=== PATIENT | female | born 1965 | race Caucasian/White ===

== ENCOUNTER 2021-03-15 10:27 | Outpatient (RCR) | payer OTHER, SELFPAY | END 2021-04-19 23:59 | LOC: IMMUN 10:27 | PROVIDERS: PCP Family Medicine; Referring Provider Family Medicine; Visit Provider Family Medicine | DX: Z23 Encounter for immunization (principal) | CPT/HCPCS: 0001A; 91300 ==

== ENCOUNTER 2023-03-31 15:55 | Outpatient (CLI) | payer OTHER, SELFPAY | END 2023-04-03 13:59 | disposition home health service (06) | LOC: LAB 04-23 09:40 | PROVIDERS: PCP Family Medicine; Referring Provider Anesthesiology; Visit Provider Anesthesiology | DX: Z01.818 Encounter for other preprocedural examination (principal) | CPT/HCPCS: 36415; 80048; 84443; 85027 ==

== ENCOUNTER 2023-04-02 11:33 | Day surgery (SDC) | payer OTHER, SELFPAY ==
[2023-03-31 16:36] LABS: Hematocrit 38.8 % (37-47); Hemoglobin 12.8 g/dL (12.0-15.0); Mean Corpuscular Hgb 30.3 pg (27.0-32.0); Mean Corpuscular Volume 91.7 fL (81-99); Mean Platelet Vol. 8.8 fl (6.2-12.0); Platelet Count 268 K/mm3 (150-450); RBC Distribution Width CV 12.7 % (11.6-14.6); RBC Distribution Width SD 42.5 fl (35.1-43.9); Red Blood Count 4.23 M/mm3 (4.2-5.4); White Blood Count 5.4 K/mm3 (4.4-11.0)
[2023-03-31 17:29] LABS: Anion Gap 2 (5-15); BUN 15 mg/dL (7-18); BUN/Creat Ratio 17.6 RATIO (10-20); Calcium,Total 8.2 mg/dL (8.5-10.1); Chloride 106 mmol/L (98-107); Creatinine, Serum 0.85 mg/dL (0.55-1.02); EST Glomerular Filtration Rate 73 mL/min (>60); Est Glom Filt Rate - Afr Amer 89 mL/min (>60); Glucose 96 mg/dL (74-106); Potassium 4.2 mmol/L (3.5-5.1); Sodium Level 137 mmol/L (136-145)
[2023-04-02] VITALS (8 sets, daily range): BP systolic 119–147; BP diastolic 75–92; PULSE 58–67; RESP 14–18; TEMP 36.2–36.7; O2SAT 94–99; BMI 25.8
--- NOTE | 2023-04-02 11:49 | HP.PCM_ITS ---
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 Is patient in pain?: Yes Allergies No Known Allergies Allergy (Unverified 02/26/23 07:52) Medications biotin 10,000 mcg capsule mcg PO 02/28/22 [History Confirmed 02/26/23] calcium phosphate 250 mg-vitamin D3 2.5 mcg (100 unit) chewable tablet (Yogurt Plus Calcium Gummies) tab PO 02/28/22 [History Confirmed 02/26/23] cholecalciferol (vitamin D3) 50 mcg (2,000 unit) capsule 50 mcg PO DAILY 02/28/22 [History Confirmed 02/26/23] levothyroxine 112 mcg tablet ea PO 02/28/22 [History Confirmed 02/26/23] metoprolol succinate 50 mg tablet,extended release 24 hr ea PO 02/28/22 [History Confirmed 02/26/23] omeprazole 40 mg capsule,delayed release ea PO 02/28/22 [History Confirmed 02/26/23] PFSH Medical History? Back problem Calcium deficiency delivery delivered Frequent headaches GERD (gastroesophageal reflux disease) Goiter High blood pressure Kidney stone Marfan's syndrome Paralysis of right vocal cord Postoperative primary hypothyroidism Thyroid cancer Thyroid disease Vision problem Vitamin deficiency Surgical History? H/O eye surgery H/O thyroidectomy Family History? Other Hypertension Marfan's syndrome Myocardial infarction Seizures Social History? Smoking Status:? Former smoker alcohol intake:? current alcohol intake frequency: holidays/special occasions only substance use type:? does not use what type of physical activity do you participate in:? other HPI HPI HPI: 57-year-old female who is being referred by the [employer] for surgical consultation regarding a suspected left inguinal hernia.? The patient is being referred by Renae Martin and Dr. Mac Pino.? Written compromise surgical consult recommendations will be returned to them.? States that she had this injury at work couple weeks ago.? She has been on light duty.? She has been working for the [employer] for over 20 years.? 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 It is intermittently uncomfortable with certain lifting and and bending.? It is able to be reduced.? The only previous abdominal surgery she has had was a previous remote . ROS General General: No weight change, appetite, fatigue, colon cancer, breast cancer or weakness HEENT HEENT: Yes eye surgery; No difficulty swallowing, eye injury, swollen glands or hoarseness Endo Endocrine: Yes thyroid disease and thyroid cancer; No diabetes mellitus, Hair loss, heat intolerance or cold intolerance Skin Skin: No rash or changing moles Breast Breast: No left breast lump, right breast lump, nipple discharge, breast pain, abnormal mammogram, abnormal US or breast enlargement Musc Musculoskeletal: Yes back problems; No arthritis, rheumatoid arthritis, gout or joint pain Cardio Cardiovascular: Yes high blood pressure; No murmur, pacemaker, heart disease, atrial fibrillation, heart attack, heart stent, palpitations, shortness of breat with exertion or chest pain Psych Psychiatric: No depression, anxiety or hearing voices Resp Respiratory: No shortness of breath, No sleep apnea, No cough, No COPD, No asthma, No emphysema and No wheezing Gastro Gastrointestinal: Yes abdominal pain, No nausea or vomiting, No diarrhea, No constipation, No blood in stool, Yes acid reflux, No hemorrhoids, No ulcers, No gallbladder problem and No black,tarry stools Kody Hematologic: No blood thinners, No blood disorders, No bleeding, No anemia and No blood clots Neuro Neurologic: No system reviewed and no additional complaints, except as documented, No as per HPI, No abnormal gait, No abnormal hearing, No abnormal movements, No abnormal speech, No behavioral changes, No burning sensations, No confusion, No convulsions, No disequilibrium, No dizziness, No localized weakness, No frequent falls, No headache(s), No lack of coordination, No loss of vision, No memory loss, No numbness, No other visual disturbances, No radicular pain, No restless legs, No sensory deficit, No syncope, No tingling, No tremor(s), No weakness and No other Exam Const General: cooperative, healthy appearing and no acute distress Orientation: alert and awake [facility] Head: normal to inspection Eyes General: appearance normal, both eyes and all related structures Neck Neck: normal visual inspection Resp Effort & Inspection: normal respiratory effort Auscultation: clear to auscultation bilaterally Cardio Rate: regular rate Rhythm: regular rhythm GI Other: Soft, nontender, extraordinary well-healed Pfannenstiel incision Other: Right groin solid intact, obvious inguinal hernia on the left notable particularly when the patient is upright and standing.? Reducible when supine Skin General: no rashes or lesions noted Neuro General: patient alert, patient awake and patient oriented x3 Extrem General: normal to inspection and no calf tenderness Psych Appearance: grossly normal Assessment and Plan Assessment and Plan (1) Inguinal hernia of left side without obstruction or gangrene: ?Status:?Acute ?Plan: Very pleasant 57-year-old female with a symptomatic indirect left inguinal hernia.? It is still reducible.? She does live an active lifestyle and has vigorous work requirements.? I propose for her a laparoscopic left inguinal herniorrhaphy with mesh and I discussed technique, benefit, risk and alternatives.? I believe that this eventuate's in the most comfortable hernia repair and the quickest return to work possibility.? We did discuss potential risks of surgery including infection and bleeding and mesh neuralgia and recurrence.? She has had an opportunity to ask and have questions answered.? I do believe that she would be a good candidate for this repair and anticipate possibly 3 weeks off of work within returned to work light duty for 3 weeks.? That would be pending her personal progress. I appreciate the opportunity of assisting with her surgical care/consultation Copy:Renae Martin and Dr. Mac Vizcaino M.D., F.A.C.S I have examined the patient and the H&P has been reviewed. There are no clinical changes since date of exam. On laboratory the patient has been noted to have an elevated TSH. Dr. Alegre's office was contacted and we were instructed per nurse practitioner to proceed with surgery and they would provide additional adjustments as an outpatient. Carlos Vizcaino M.D., F.A.C.S.
--- NOTE | 2023-04-02 11:50 | DCINST_ITS ---
Discharge Instructions Procedure General Surgery Diet Discharge Diet: Light diet - advance as tolerated (if you have questions about your diet instructions, please talk to you doctor.) Activity Discharge Activity: May Not Drive (for 3-5 days or while taking narcotic pain medicine.) May shower in (days): 1 Lifting Restrictions: 10 pounds Dressing / Incision Call your doctor if your incision/area has: Continuous Slow Oozing, Sudden Increased Bleeding, Increased Pain/ Swelling, Increased Redness and Foul Smelling Discharge Call your doctor if you observe: Fever of 101 or Higher Suture Line Care: Avoid Pulling/Pushing and Avoid Pinching/Bending Additional Dressing/Incision Instructions:: Change or remove dressing in 4 days. Leave steri-strips in place for 1 week. Follow Up Care Please Follow Up With: Carlos Vizcaino MD When: Call [phone] to make an appointment to be seen in about 10 days. Test Results: Test results from this visit will be discussed in further detail at your follow- up appointment, if applicable. Discharge Plan Admission Attending Provider: Carlos Vizcaino Primary Care Provider: Pavel Alegre Discharge Orders/Prescriptions Prescriptions: No Action levothyroxine 112 mcg tablet 125 mcg PO DAILY Label Comments: Take 1 tablet by mouth once daily. Take on empty stomach. For thyroid. metoprolol succinate 50 mg tablet extended release 24 hr 1 ea PO DAILY Label Comments: Take 1 tablet by mouth once daily. omeprazole 40 mg capsule,delayed release(DR/EC) 1 ea PO DAILY Label Comments: Take 1 capsule by mouth once daily. cholecalciferol (vitamin D3) 50 mcg (2,000 unit) capsule 50 mcg PO DAILY Referrals / Follow Up: Pavel Alegre MD [Primary Care Provider] - Disposition Disposition (needs filled in before D/C Order can be placed): Home, Self Care
--- NOTE | 2023-04-02 12:06 | EKG12_ITS ---
Test Reason : PREOP Blood Pressure : / mmHG Vent. Rate : 066 BPM Atrial Rate : 066 BPM P-R Int : 168 ms QRS Dur : 078 ms QT Int : 418 ms P-R-T Axes : 057 054 034 degrees QTc Int : 438 ms Normal sinus rhythm Normal ECG When compared with ECG of 15-OCT-2006 09:49, No significant change was found Confirmed by SABAS VILLALOBOS, SARKIS ([id number]), primer expeditor and drier DREW GALVAN ([id number]) on 04/08/2023 12:25:35 PM Referred By: Carlos Vizcaino Confirmed By:SARKIS OBREGON MD
[2023-04-02] MEDS: Lactated Ringers 1,000 ML 15 ML IV ×2 (12:15→16:01)
[2023-04-02] MEDS: Cefazolin 2 GM in 0.9% Normal Saline 100 ML IV (14:19)
[2023-04-02] MEDS: Bupivacaine Mpf 0.5% 30 ML VIAL (14:25)
--- NOTE | 2023-04-02 15:02 | OP.PCM_ITS ---
Report of Operation Date of Procedure: 04/02/23 Pre-Operative Diagnosis: Symptomatic left inguinal hernia Post-Operative Diagnosis: Symptomatic indirect left inguinal hernia Surgery/Procedure Performed:: Laparoscopic left inguinal herniorrhaphy with Bard 3D max large left mesh Lot [id number], reference [id number], expiry date 09/22/2027 Description of Surgical Findings:: Timeout and informed consent was obtained. 57-year-old female was taken to the operating room placed on the table underwent general endotracheal intubation esthesia the abdomen left groin was sterilely prepped and draped 2 g of Ancef were given intravenously 0.5% Marcaine was used as a local anesthetic throughout the procedure a total of 30 cc was used skin sites were Jossie size a vertical infraumbilical incision was created holding sutures of 0 Vicryl placed varies needle inserted saline drop test performed the abdomen was insufflated with CO2 to a pressure of 10 mmHg pressure inspection of the laparoscope revealed no evidence of any right inguinal hernia that there was omentum adherent to the anterior abdominal wall from the pelvic area up the left midline. I placed a 5 mm trocar in the right lower quadrant using electrified scissors transected the omentum from the anterior abdominal wall now getting free access to the left groin area where an indirect inguinal hernia was identified. Under direct visitation a 5 mm port was placed in the left lower quadrant. Under laparoscopic visualization a ilioinguinal nerve block was performed with Marcaine the peritoneum was incised superior lateral to the inguinal ring carried medially. The peritoneum was then carefully dissected free the sac was inverted. The peritoneum was adherent to the round ligament so I transected the round ligament with hemoclips and electrocautery the sac was then completely d issected free the direct space indirect and femoral artery bluntly dissected free with good visualization. A Bard 3D moderate max large left-sided mesh was placed it had good coverage of the defect area it was secured laterally superiorly and medially with secure strap. I felt that I got very excellent coverage. The peritoneum was then approximated to itself using Hem-o-sandy clips and a single secure strap. Complete obliteration to the mesh was achieved. The abdomen was allowed to deflate of the CO2. The fascia at the umbilicus approximated with interrupted 0 Vicryl [id number] suture. Skin edges approximated with interrupted 4 Monocryl subdermal stitches. Steri-Strips Telfa OpSite dressings applied. Sponge and instrument and needle counts were reported to the surgeon to be correct. Specimens none. Drains none. Blood loss minimal. Carlos Vizcaino M.D., F.A.C.S. Surgeon: Carlos Vizcaino Type of Anesthesia: General and Local Anesthesiologist: Yon Juares
== END 2023-04-02 17:17 | disposition home or self-care (01) ==
LOC: SDC 11:35 → AC 11:41
PROVIDERS: Anesthesiology; PCP Family Medicine; Referring Provider Surgery; Visit Provider Surgery
PROC: (CPT 49650; principal; 2023-04-02 13:25)
DX: K40.90 Unilateral inguinal hernia, without obstruction or gangrene, not specified as recurrent (principal); C73 Malignant neoplasm of thyroid gland; Z87.891 Personal history of nicotine dependence; Q87.40 Marfan syndrome, unspecified; J38.01 Paralysis of vocal cords and larynx, unilateral; E89.0 Postprocedural hypothyroidism
CPT/HCPCS: 49505; 00830; 36415; 80048; 84443; 85027; 93005; J7120; C1781; J2405

== ENCOUNTER → 2025-05-15 | Outpatient (CLI) | payer BC, SELFPAY ==
--- NOTE | 2025-05-15 16:20 | RAD_ITS ---
PROCEDURE: BONE LENGTH 05/15/2025 REASON FOR EXAM: UNEQUAL LIMB LENGTH (ACQUIRED), LEFT FEMUR F, age 59 y/o . Unequal limb length left femur. TECHNIQUE: BONE LENGTH COMPARISON: None FINDINGS: Right femur: 45.3 cm Left femur: 45.8 cm. Right tibia: 39.6 cm Left tibia: 39.2 cm No fracture seen. Hip joint and knee joint as well as tibiotalar joint are grossly unremarkable. RAD/Bone Length IMPRESSION: No fracture is seen. No significant limb length discrepancy identified. Reading Location: [id number]
--- OUTSIDE RECORDS SUMMARY | 2025-05-15 21:25 | XMS RPT_ITS | CCD ---
Author Organization 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 Cindy Alegre Primary Care Provider Dr. Cindy Alegre Referring Provider Dr. Carlos Vizcaino Attending Provider Dr. Carlos Vizcaino Referring Provider Cebuanastacio, Dr. Carlos Raymond Other Provider Cindy Alegre MD Primary Care Provider JERRY Thompson Attending Provider Cindy Alegre MD Primary Care Provider Tannhof INDUSTRIAL TRACTOR DRIVER.Krystin MARTINEZ Unavailable Hussein INDUSTRIAL TRACTOR DRIVER.Grant MARTINEZ Unavailable CINDY ALEGRE Primary Care Unavailable CINDY ALEGRE Attending Unavailable CINDY ALEGRE Primary Care Unavailable CINDY ALEGRE Referring Unavailable CINDY ALEGRE Primary Care Unavailable SELF Referring Unavailable ALONDRA WALTER Attending Unavailable CINDY ALEGRE Primary Care Unavailable CINDY ALEGRE Referring Unavailable CINDY ALEGRE Referring Unavailable CINDY ALEGRE Primary Care Unavailable CINDY ALEGRE Primary Care Unavailable CINDY ALEGRE Referring Unavailable CINDY ALEGRE Primary Care Unavailable CINDY ALEGRE Attending Unavailable CINDY ALEGRE Primary Care Unavailable CINDY ALEGRE Referring Unavailable Tannhof INDUSTRIAL TRACTOR DRIVER.Krystin MARTINEZ Unavailable Unavail able Cindy Alegre Primary Care Unavailable Enrique Prado Referring Unavailable Enrique Prado Attending Unavailable Medications Current Medications Medication Drug Class(es) Dates Sig (Normalized) Sig (Original) cholecalciferol 0.05 mg oral capsule (20 sources) Vitamin D Start: 02-28-2022 take 50 ug by mouth once daily Cholecalciferol (Vitamin D3) Active 50 MCG PO DAILY February 28, 2022 12:00am Start: 09-27-2021 End: 07-29-2024 take 1 capsule by mouth once daily Cholecalciferol, Vitamin D3, 50 mcg (2,000 unit) cap Indications: Vitamin D deficiency Take 1 capsule by mouth once daily. 90 capsule 3 07/29/2024 Active Comment on above: Take 1 capsule by mo [facility] once daily. levothyroxine sodium 0.15 mg oral tablet (20 sources) l-Thyroxine Start: 01-27-20 take 1 tablet by mouth once daily for thyroid dysfunction levothyroxine (LEVOXYL) 150 mcg tablet Indications: Postsurgical hypothyroidism Take 1 tablet by mouth once daily. Take on empty stomach. For Thyroid. 90 tablet 3 01/26/2025 Active Start: 09-23-2024 End: 01-26-2025 take 1 tablet by mouth once daily for thyroid dysfunction levothyroxine (LEVOXYL) 175 mcg tablet Indications: Postsurgical hypothyroidism Take 1 tablet by mouth once daily. Take on empty stomach. For Thyroid. 30 tablet 11 09/23/2024 01/26/2025 Discontinued Start: 04-13-2023 take 150 ug by mouth once sidney y Levothyroxine Active 150 MCG PO DAILY April 13, 2023 2:02pm Start: 04-01-2023 End: 09-23-2024 take 1 tablet by mouth once daily for thyroid dysfunction levothyroxine (LEVOXYL) 150 mcg tablet Indications: Postsurgical hypothyroidism Take 1 tablet by mouth once daily. Take on empty stomach. For Thyroid. 90 tablet 3 07/29/2024 09/23/2024 Discontinued Start: 01-23-2023 [facility] for [facility] dysfunction levothyroxine (LEVOXYL) 125 mcg tablet Indications: Postsurgical hypothyroidism Take 1 tablet by mouth once daily. Take on empty stomach. For thyroid. 30 tablet 11 01/23/2023 Active Start: 02-28-2022 End: 04-13-2023 take 125 ug by mouth once daily Levothyroxine Disconti nued 125 MCG PO DAILY February 28, 2022 12:00am April 13, 2023 2:02pm Start: 10-31-2021 End: 01-23-2023 take 1 tablet by mouth once daily for thyroid dysfunction levothyroxine (LEVOXYL) 112 mcg tablet Indications: Postsurgical hypothyroidism Take 1 tablet by mouth once daily. Take on empty stomach. For thyroid. 90 tablet 3 07/25/2022 01/23/2023 Discontinued Comment on above: Take 1 tablet by marita once daily. Take on empty stomach. For thyroid. 24 hr metoprolol succinate 50 mg extended release oral tablet (20 sources) beta-Adrenergic Juan A Start: 02-28-2022 Metoprolol Succinate Active 1 EACH PO DAILY February 28, 2022 12:00am Start: 10-31-2021 End: 07-29-2024 take 1 tablet by mouth once daily metoprolol succinate ER (TOPROL XL) 50 mg 24 hr tablet Indications: Essential hypertension Take 1 tablet by mouth once daily. 90 tablet 3 07/29/2024 Active Comment on above: Take 1 tablet by marita once daily. omeprazole 40 mg delayed release oral capsule (20 sources) Proton Pump Inhibitor Start: 07-23-2023 End: 07-29-2024 omeprazole (PRILOSEC) 40 mg capsule Indications: Gastroesophageal reflux disease, unspecified whether esophagitis present Take one capsule 1-2 times a day 180 capsule 3 07/29/2024 Active Start: 10-31-2021 End: 07-23-2023 take 1 capsule by mouth once daily omeprazole (PRILOSEC) 40 mg capsule Indications: Gastroesophageal reflux disease, unspecified whether esophagitis present Take 1 capsule by mouth once daily. 90 capsule 3 07/25/2022 07/23/2023 Discontinued Comment on above: Take 1 capsule by mo [facility] once daily. Take one capsule 1-2 times a day Completed/Discontinued Medications Medication Drug Class(es) Dates Sig (Normalized) Sig (Original) acetaminophen 325 mg / HYDROcodone bitartrate 5 mg oral tablet (3 sources) Opioid Agonist Start: 04-02-2023 End: 04-13-2023 take 1 tablet by mouth every six hours Hydrocodone-Acetami nophen Discontinued 1 TABLET PO EVERY 6 HOURS 6 2 April 02, 2023 April 13, 2023 2:02pm Problems Active Problems Problem Classification Problem Date Documented Date Episodic/Chronic Abdominal hernia (7 sources) Left inguinal hernia ; Translations: [Unilateral inguinal hernia, without obstruction or gangrene, not specified as recurrent] 02-26-2023 Episodic Cancer of thyroid (3 sources) Malignant tumor of thyroid gland; Translations: [Malignant neoplasm of thyroid gland] 02-28-2022 Chronic Complications of surgical procedures or medical care (20 sources) Postoperative hypothyroidism; Translations: [Postprocedural hypothyroidism] Onset: 10-02-2006 Chronic Esophageal disorders (20 sources) Gastroesophageal reflux disease; Translations: [Gastro-esophageal reflux disease without esophagitis] Onset: 07-20-2007 Chronic Essential hypertension (20 sources) Essential hypertension; Translations: [Essential (primary) hypertension] Onset: 06-02-2013 Chronic Nutritional deficiencies (20 sources) Vitamin D deficiency; Translations: [Vitamin D deficiency, unspecified] Onset: 06-02-2013 06-02-2013 Chronic Other acquired deformities (1 source) Unequal limb length (acquired), left femur; Translations: [Unequal limb length (acquired), left femur] Onset: 05-08-2025 Episodic Other congenital anomalies (20 sources) Marfan's syndrome; Translations: [Marfan's syndrome, unspecified] Onset: 06-13-2011 Chronic Other lower respiratory disease (4 sources) Dyspnea on exertion; Translations: [Other forms of dyspnea] 01-31-2025 Episodic Other lower respiratory disease (1 source) Wheezing; Translations: [Wheezing] 01-31-2025 Episodic Other lower respiratory disease (1 source) Other forms of dyspnea; Translations: [CHARLES (dyspnea on exertion)] Onset: 02-02-2025 Episodic Other nutritional; endocrine; and metabolic disorders (20 sources) Hypocalcemia; Translations: [Hypocalcemia] Onset: 04-01-2012 04-01-2012 Chronic Other upper respiratory disease (20 sources) Vocal cord paralysis; Translations: [Paralysis of vocal cords and larynx, unilateral] Onset: 09-14-2007 03-02-2017 Chronic Past or Other Problems Problem Classification Problem Date Documented Date Episodic/Chronic Cancer of thyroid (20 sources) History of malignant neoplasm of thyroid; Translations: [Personal history of malignant neoplasm of thyroid] Onset: 12-10-2006 Episodic Miscellaneous mental health disorders (12 sources) Somatoform autonomic dysfunction - gastrointestinal tract; Translations: [Other somatoform disorders] Onset: 04-30-2009 Resolved: 04-12-2010 04-12-2010 Chronic Other inflammatory condition of skin (12 sources) Psoriasis; Translations: [Psoriasis, unspecified] Onset: 08-19-2006 Resolved: 06-02-2013 06-02-2013 Chronic Other inflammatory condition of skin (12 sources) Seborrheic dermatitis; Translations: [Seborrheic dermatitis, unspecified] Onset: 08-19-2006 Resolved: 04-12-2010 04-12-2010 Episodic Other screening for suspected conditions (not mental disorders or infectious disease) (7 sources) Patient encounter status; Translations: [Encounter for screening mammogram for malignant neoplasm of breast] Onset: 03-03-2024 10-06-2022 Episodic Other skin disorders (12 sources) Disorder of sebaceous gland; Translations: [Follicular disorder, unspecified] Onset: 08-19-2006 Resolved: 04-12-2010 04-12-2010 Episodic Spondylosis; intervertebral disc disorders; other back problems (20 sources) Chronic low back pain; Translations: [Chronic bilateral low back pain without sciatica] Onset: 07-05-2021 07-05-2021 Episodic Results Test Name Value Interpretation Reference Range Facility SPIROMETRY - BASELINE AND PO ST DILATORon 02-02-2025 SPIROMETRY - BASELINE AND POST DILATOR [facility] [address] [place] [address] Test Date: 2025-02-02 Pat Name: BRICE UMANZOR Department: Room: Gender: F Or Rn: : 1965 Requested By: Order Number: [id number] Reading MD: Ileana Brown MD Interpretive Statements Patient has known left vocal chord paralysis. The flow limitation pattern exhibited on the flow-volume curve was repeatable. Patient effort was consistent. Pre & Post BD: The two largest FVCs and FEV1s were repeatable. Medications and Allergies were reviewed for possible drug interactions per policy. No contraindications or sensitivities were noted. No RT meds taken before testing. 4 puffs Albuterol (360 mcg) delivered by MDI via holding chamber. HR pre = 86/min, HR post = 95/min. //KM IMPRESSION: Spirometry indicates mild obstruction. Negative bronchodilator response. Visual analysis of the flow volume loop suggests a fixed airway obstruction consistent with known vocal cord paralysis. Electronically Signed On 02-05-2025 18:14:58 EDT by Ileana Brown MD ID: [id number] Name: BRICE UMANZOR Race: White Ht: 65.51 in Wt: 162.00 lbs Age: 59 Gender: Female : 1965 Dx: Other forms of dyspnea Smoking Hx: Non-smoker Doctor: CINDY ALEGRE Test Date: 02/02/2025 Site: Tech: Margareth Hedrick PRE-BRONCH POST-BRONCH Judy LLN Pred ULN %Pred ZScore Judy %Pred %Chg ZScore SPIROMETRY FVC 2.75 2.34 3.21 4.10 85 -0.86 2.64 82 -3 -1.07 FEV1 1.80 1.84 2.56 3.23 70 -1.74 1.59 62 -8 -2.21 FEV1/FVC 0.65 0.68 0.80 0.89 82 -1.92 0.60 75 -8 -2.49 FEFMax 2.48 4.82 6.61 8.40 37 -3.79 2.14 32 -13 -4.10 FEF50 1.67 1.89 3.50 5.11 47 -1.88 1.38 39 -17 -2.17 FIF50 1.06 1.02 -3 FEF50/FIF50 1.57 90-100 1.36 -13 FIVC 2.42 2.38 -1 AMX88-74 1.12 1.26 2.42 3.96 46 -1.88 0.91 37 -18 -2.29 ExpiredTime 8.58 8.91 3 TimeToFEFMax 0.14 0.11 -18 JB 0.04 0.03 -29 VolExtrap% 1 1 -26 Comments: Patient has known left vocal chord paralysis. The flow limitation pattern exhibited on the flow-volume curve was repeatable. Patient effort was consistent. Pre & Post BD: The two largest FVCs and FEV1s were repeatable. Medications and Allergies were reviewed for possible drug interactions per policy. No contraindications or sensitivities were noted. No RT meds taken before testing. 4 puffs Albuterol (360 mcg) delivered by MDI via holding chamber. HR pre = 86/min, HR post = 95/min. //KM FVC_PRE (L) : 2.75 L FVC_POST (L) : 2.64 L FVC_PRED (L) : 3.21 L FVC_LLN (L) : 2.34 L FVC_ULN (L) : 4.10 L FEV1_PRE (L) : 1.80 L FEV1_POST (L) : 1.59 L FEV1_PRED (L) : 2.56 L FEV1_LLN (L) : 1.84 L FEV1_ULN (L) : 3.23 L FEV1/FVC_PRE (%) : 65 % FEV1/FVC_POST (%) : 60 % FEV1/FVC_PRED (%) : 80 % FEV1/FVC_LLN (%) : 68 % BHD21_XFR (L/S) : 1.95 L/S RJV39_GPIS (L/S) : 1.51 L/S NJN11_BOY (L/S) : 0.35 L/S DIZ99_FHKK (L/S) : 0.26 L/S ADA66_WKAJ (L/S) : 0.72 L/S KHE81_FLQ (L/S) : 0.29 L/S KGN46_YQQ (L/S) : 1.64 L/S AKV40-96%_PRE (L/S) : 1.12 L/S ZPH99-31%_POST (L/S) : 0.91 L/S PPB46-04%_PRED (L/S) : 2.42 L/S MSK25-72%_LLN (L/S) : 1.26 L/S PEF_PRE (L/S) : 2.48 L/S PEF_POST (L/S) : 2.14 L/S PEFMAX_LLN (L/S) : 4.82 L/S PEFMAX_ULN (L/S) : 8.40 L/S FET_PRE (S) : 8.58 S FET_POST (S) : 8.91 S [facility] CNOVon 01-31-2025 CNOV Office Visit (FAMPWS ) BRICE UMANZOR ([id number]) 1965 F Date Time Provider Department 01/31/25 4:40 PM CINDY ALEGRE During your visit today, we recorded the following information about you: Pulse Respiration Blood pressure Weight 80/minute 16/minute 134/82 73.8 kg Cindy Alegre MD 01/31/2025 5:06 PM Signed Chief Complaint Patient presents with: F/U 6 Month HPI Brice Umanzor is a 59 year old female who presents here today for 6 month follow up. Here today for a follow up. Notes she's not done a lot due to being at work, at [employer]. States Spring time is the busiest time of year. No bowel, Gi, or urinary issues. GERD: Sx overall controlled with Prilosec 40 mg 1-2 x a day. HTN: Admits to not checking BP at home lately. Denies any chest pain. Admits to having sob and dizziness. Taking Toprol xl 50 mg daily. Thyroid: Taking Levothyroxine 150 mcg daily. Recent dosage change due to low TSH. Denies any missed dosages. Issues with breathing for the past 3 months. Reports getting really sob with doing her job, walking and carrying on a conversation. When she stops, this improves. No other symptoms with sob of chest pain, dizziness and nausea/vomiting. Reports complications from thyroid surgery years ago, it affected her vocal cord, had damage. Denies any changes in her voice that she's aware of. At times with breathing she feels she wheezes. States when she lays down at night, she will wake herself up gasping. Reports an episode of dizziness while at work, with left arm and hand numbness. States she was holding boxes when this occurred and she dropped them. She sat down on the ground and her symptoms resolved within just a couple of minutes, but then started experiencing flashers in her left eye. States that she had these for about 20 minutes. Pt reports her Eye Doctor is aware of them. Pt denies having any other symptoms occur during this episode. States she's noticed over the past several months, waking up in the middle of the night gasping. has also noted that she makes weird noises when she falls asleep. HM - Declines HIV/Hep C screening. Had Flu vaccine at work. Declines Covid vaccine. Declines Pneumonia vaccine. Past medical history, appointments, medications, allergies reviewed. 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 Repaired at [facility] by Dr. Carlos Vizcaino. THYROIDECTOMY TOTAL/COMPLETE 09/2006 Family History FAMILY HISTORY Problem Relation Age of Onset Heart Mother marfans syndrome Hypertension Mother other (Marfan's syndrome) Mother Heart Father Kidney Disease Father other (Marfan's) Sister other (Marfan's syndrome) Brother Colon Cancer Maternal Grandmother 70 other (Marfan's syndrome) Maternal Grandmother other (Marfan's syndrome) Maternal Uncle Patient Allergies ALLERGIES No Known Allergies Current Medications Current Outpatient Medications on File Prior to Visit Medication Sig levothyroxine (LEVOXYL) 175 mcg tablet Take 1 tablet by mouth once daily. Take on empty stomach. For Thyroid. omeprazole (PRILOSEC) 40 mg capsule Take one capsule 1-2 times a day metoprolol succinate ER (TOPROL XL) 50 mg 24 hr tablet Take 1 tablet by mouth once daily. Cholecalciferol, Vitamin D3, 50 mcg (2,000 unit) cap Take 1 capsule by mouth once daily. No current facility-administered medications on file prior to visit. Social History Social History Tobacco Use Smoking status: Former Current packs/day: 0.00 Types: Cigarettes Start date: 03/26/1983 Quit date: 03/26/1984 Years since quittin.8 Smokeless tobacco: Never Tobacco comments: 1-2 cigarrette daily in past last cigarette in high school Vaping Use Vaping status: Never Used Substance Use Topics Alcohol use: Yes Comment: Occasionally Drug use: No EXAM: BP 134/82 (BP Position: Sitting) Pulse 80 Resp 16 Wt 73.8 kg (162 lb 11.2 oz) LMP 08/27/2019 (LMP Unknown) SpO2 97% BMI 26.87 kg/m? General Appearance: Well appearing, alert, in no acute distress, well-hydrated, well nourished.. (more content not included)... Normal [facility] XR CHEST 2V FRONTAL/LATon XR CHEST 2V FRONTAL/LAT * * *Final Repor t* * * DATE OF EXAM: Jan 31 2025 5:55PM WOX [id number] - XR CHEST 2V FRONTAL/LAT / PROCEDURE REASON: CHARLES (dyspnea on exertion) * * * * Physician Interpretation * * * * EXAMINATION: CHEST RADIOGRAPH (2 VIEW FRONTAL and LATERAL) CLINICAL HISTORY: CHARLES (dyspnea on exertion) MQ: XC2_6 EXAM DATE/TIME: 01/31/2025 5:55 PM COMPARISON: No relevant prior studies available. RESULT: Lines, tubes, and devices: None. Lungs and pleura: No consolidation. No lung mass. No pleural effusion. No pneumothorax. Cardiomediastinal silhouette: Normal cardiomediastinal silhouette. Bones and soft tissues: Unremarkable. IMPRESSION: No acute radiographic abnormality. County Assessor: BIANCA Transcribe Date/Time: Jan 31 2025 5:56P Dictated by : JOSE MARIA SORTO MD This examination was interpreted and the report reviewed and electronically signed by: JOSE MARIA SORTO MD on Jan 31 2025 5:56PM EST [id number] Normal [facility] XR Chest PA and Lateralon IMPRESSION: No acute radiographic abnormality. County Assessor: BIANCA Transcribe Date/Time: Jan 31 2025 5:56P Dictated by : JOSE MARIA SORTO MD This examination was interpreted and the report reviewed and electronically signed by: JOSE MARIA SORTO MD on Jan 31 2025 5:56PM EST DIVISION OF RADIOLOGY * * *Final Report* * * DATE OF EXAM: Jan 31 2025 5:55PM WOX [id number] - XR CHEST 2V FRONTAL/LAT / PROCEDURE REASON: CHARLES (dyspnea on exertion) * * * * Physician Interpretation * * * * EXAMINATION: CHEST RADIOGRAPH (2 VIEW FRONTAL & LATERAL) CLINICAL HISTORY: CHARLES (dyspnea on exertion) MQ: XC2_6 EXAM DATE/TIME: 01/31/2025 5:55 PM COMPARISON: No relevant prior studies available. RESULT: Lines, tubes, and devices: None. Lungs and pleura: No consolidation. No lung mass. No pleural effusion. No pneumothorax. Cardiomediastinal silhouette: Normal cardiomediastinal silhouette. Bones and soft tissues: Unremarkable. DIVISION OF RADIOLOGY Provider, Butch Burton - 01/31/2025 * * *Final Report* * * DATE OF EXAM: Jan 31 2025 5:55PM WOX [id number] - XR CHEST 2V FRONTAL/LAT / PROCEDURE REASON: CHARLES (dyspnea on exertion) * * * * Physician Interpretation * * * * EXAMINATION: CHEST RADIOGRAPH (2 VIEW FRONTAL & LATERAL) CLINICAL HISTORY: CHARLES (dyspnea on exertion) MQ: XC2_6 EXAM DATE/TIME: 01/31/2025 5:55 PM COMPARISON: No relevant prior studies available. RESULT: Lines, tubes, and devices: None. Lungs and pleura: No consolidation. No lung mass. No pleural effusion. No pneumothorax. Cardiomediastinal silhouette: Normal cardiomediastinal silhouette. Bones and soft tissues: Unremarkable. IMPRESSION IMPRESSION: No acute radiographic abnormality. County Assessor: PSCB Transcribe Date/Time: Jan 31 2025 5:56P Dictated by : JOSE MARIA SORTO MD This examination was interpreted and the report reviewed and electronically signed by: JOSE MARIA SORTO MD on Jan 31 2025 5:56PM EST [facility] Radiology Study observation (narrative) Jimi Davis XR Chest PA and LateralOrder ed By: Ccf Provider on 01-31-2025 [facility] Charles 01-25-2025 CNPN Telephone (FAMPWS) BRICE UMANZOR ([id number]) 1965 F Date Time Provider Department 01/25/25 CINDY ALEGRE During your visit today, we recorded the following information about you: Mabel Brar RN 01/25/2025 4:41 PM Signed Patient reports she has 3 tablets left of her levothyroxine 175 mcg medication and can get one more refill. Patient had recent thyroid labs completed on 01/24/25. Patient asking if PCP would like patient to remain on same dose of medication, or change it? She states if PCP is changing the order, she will not get her 175 mcg refilled and will wait for new script to be sent to her pharmacy. Please call patient with levothyroxine dosage she should take. Mabel Brar RN . Cindy Alegre MD 01/26/2025 11:45 AM Signed Her lab results do shows that the thyroid dose is too high now. have ordered the 150 mcg thyroid dose, so go back to this MD Willam Bello Rilee, MA 01/26/2025 12:21 PM Signed Call to pt, spoke with spouse who stated he was to take message regarding thyroid medication to update her due to being at work. Notified spouse of message below from PCP. 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 Xin Arzate MA Allergies As of Date: 01/25/2025 (No Known Allergies) Date Reviewed: 07/29/2024 Reviewed by: Deyanira Salinas MA - Fully Assessed Reason for Visit: Medication Request [138] Visit Diagnosis:Postsurgica l hypothyroidism [E89.0] Order(s):levothyroxin e (LEVOXYL) 150 mcg tabletTake 1 tablet by mouth once daily. Take on empty stomach. For Thyroid.Disp: 90 tabletRfl: 3 Prescriptions as of 01/26/2025 - levothyroxine (LEVOXYL) 150 mcg tablet Take 1 tablet by mouth once daily. Take on empty stomach. For Thyroid. - omeprazole (PRILOSEC) 40 mg capsule Take one capsule 1-2 times a day - metoprolol succinate ER (TOPROL XL) 50 mg 24 hr tablet Take 1 tablet by mouth once daily. - Cholecalciferol, Vitamin D3, 50 mcg (2,000 unit) cap Take 1 capsule by mouth once daily. Problem List As Of Date 01/25/2025 Noted Resolved Psoriasis [L40.9] 08/19/2006 06/02/2013 Unspecified Seborrheic Dermatitis [L21.9] 08/19/2006 04/12/2010 XEROSIS [L73.9] 08/19/2006 04/12/2010 History of thyroid cancer [Z85.850] 12/10/2006 GERD (gastroesophageal reflux disease) [K21.9] 07/20/2007 Unilateral complete paralysis of vocal cord [J3*09/14/2007 Gastrointestinal Malfunction Arising from Menta*04/30/2009 04/12/2010 Marfan's syndrome [Q87.40] 06/13/2011 Hypocalcemia [E83.51] 04/01/2012 Postsurgical hypothyroidism [E89.0] 10/02/2006 Vitamin D deficiency [E55.9] 06/02/2013 Hypertension [I10] 06/02/2013 Chronic bilateral low back pain without sciatic*07/05/2021 Prescriptions ordered this encounter Disp Refills Start End LEVOTHYROXINE 150 MCG TABLET 90 t* 3 01/26/2025 Route: ORAL Sig: Take 1 tablet by mouth once daily. Take on empty stomach. For Thyroid. Medications Discontinued During This Encounter Prescriptions - levothyroxine (LEVOXYL) 175 mcg tablet (Discontinued) Take 1 tablet by mouth once daily. Take on empty stomach. For Thyroid. Encounter Status:Closed by XIN ARZATE on 01/26/25 Normal [facility] T4 Free SerPl-mCncon 025 Free T4 [Mass/Vol] 2.0 ng/dL High 0.9-1.7 [facility] Comment on above: Order Comment: Speci men Type: BLOOD SPECIMENOrdering Facility: [facility] Address: [address] [place] [address] Performed By: #### 3 024-7, 3016-3 ####[facility] LABIA [id number] [place] [id number] [place] TSH SerPl-aCncon 01-24-2025 TSH Qn 0.005 m[IU]/L Low 0.270-4.200 [facility] Comment on above: Order Comment: Speci men Type: BLOOD SPECIMENOrdering Facility: [facility] Address: [address] [place] [address] Performed By: #### 3 024-7, 3016-3 ####[facility] [id number] [place] [id number] [place] CNPNon [facility]-2024 [facility] BR[facility] UMAN[facility] ([id number]) 1965 F Date Time Provider Department 09/23/24 CINDY ALEGRE [facility] During your visit today, we recorded the following information about you: Wilton Neeru CONSTANTINE 09/23/2024 2:18 PM Signed Pt. needs refill on Synthroid 150 mcg taking 2 and then 1 every other day. She would like Rx mcg changed so she can just take it daily. She would like to start with [facility] Also she has chapped sore lips since last synthroid dosage change. Call back with information. Cindy Alegre MD 09/23/2024 3:31 PM Signed OK to go to Synthroid 175 mcg daily as ordered MD Brad Bello Kathryn, MA 09/23/2024 4:32 PM Signed Pt notified. She will see how the chapped lips do with switching the dosages. DAVIE Bradley Beth, LPN 09/23/2024 4:47 PM Signed Patient calling back asking why PCP changed her Levothyroxine dose to 175 mcg daily? She said she did not do any lab work in past few days. Please advise Cindy Alegre MD 09/23/2024 5:03 PM Signed The message I received said that she wanted to take her dose just one pill daily, every day. Using the 175 mcg dose once daily would equal the same weekly dose as she is currently taking by taking two of the 150 mcg pills one day, and one pill the rest of the days. By going to the 175 mcg dose she can just take one pill every day. MD Marianna Bello Beth, LPN 09/24/2024 9:09 AM Signed Phoned patient and went over notes below from Dr Alegre with understanding, had to go over several times. Aware rx sent to pharmacy. Allergies As of Date: 09/23/2024 (No Known Allergies) Date Reviewed: 07/29/2024 Reviewed by: Deyanira Salinas MA - Fully Assessed Reason for Visit: Refill Request [94] Visit Diagnosis:Postsurgica l hypothyroidism [E89.0] Order(s):levothyroxin e (LEVOXYL) 175 mcg tabletTake 1 tablet by mouth once daily. Take on empty stomach. For Thyroid.Disp: 30 tabletRfl: 11 Prescriptions as of 09/24/2024 - levothyroxine (LEVOXYL) 175 mcg tablet Take 1 tablet by mouth once daily. Take on empty stomach. For Thyroid. - omeprazole (PRILOSEC) 40 mg capsule Take one capsule 1-2 times a day - metoprolol succinate ER (TOPROL XL) 50 mg 24 hr tablet Take 1 tablet by mouth once daily. - Cholecalciferol, Vitamin D3, 50 mcg (2,000 unit) cap Take 1 capsule by mouth once daily. Problem List As Of Date 09/23/2024 Noted Resolved Psoriasis [L40.9] 08/19/2006 06/02/2013 Unspecified Seborrheic Dermatitis [L21.9] 08/19/2006 04/12/2010 XEROSIS [L73.9] 08/19/2006 04/12/2010 History of thyroid cancer [Z85.850] 12/10/2006 GERD (gastroesophageal reflux disease) [K21.9] 07/20/2007 Unilateral complete paralysis of vocal cord [J3*09/14/2007 Gastrointestinal Malfunction Arising from Menta*04/30/2009 04/12/2010 Marfan's syndrome [Q87.40] 06/13/2011 Hypocalcemia [E83.51] 04/01/2012 Postsurgical hypothyroidism [E89.0] 10/02/2006 Vitamin D deficiency [E55.9] 06/02/2013 Hypertension [I10] 06/02/2013 Chronic bilateral low back pain without sciatic*07/05/2021 Prescriptions ordered this encounter Disp Refills Start End LEVOTHYROXINE 175 MCG TABLET 30 t* 11 09/23/2024 Route: ORAL Sig: Take 1 tablet by mouth once daily. Take on empty stomach. For Thyroid. Medications Discontinued During This Encounter Prescriptions - levothyroxine (LEVOXYL) 150 mcg tablet (Discontinued) Take 1 tablet by mouth once daily. Take on empty stomach. For Thyroid. Encounter Status:Closed by DEYANIRA SALINAS [facility]23/[facility] BRICE UMANZOR ([id number]) 1965 F Date Time Provider Department 08/08/24 CINDY ALEGRE [facility] During your visit today, we recorded the following information about you: Cindy Alegre MD 08/08/2024 7:37 PM Signed Please notify patient that her TSH is slightly high, so I would suggest that on one day a week she take 2 of her thyroid pills, and continue with one pill every other day of the week. Recheck in 6 months as planned. MD Jus Bello Jacqueline, LPN 08/09/2024 8:48 AM Signed Left message for patient to return call Mary Aparicio LPN 08/09/2024 9:09 AM Signed Pt notified of results AND message from provider. Pt voiced understanding. Mary Aparicio LPN Allergies As of Date: 08/08/2024 (No Known Allergies) Date Reviewed: 07/29/2024 Reviewed by: Deyanira Salinas MA - Fully Assessed Visit Diagnosis:Postsurgica l hypothyroidism [E89.0] Prescriptions as of 08/09/2024 - omeprazole (PRILOSEC) 40 mg capsule Take one capsule 1-2 times a day - metoprolol succinate ER (TOPROL XL) 50 mg 24 hr tablet Take 1 tablet by mouth once daily. - Cholecalciferol, Vitamin D3, 50 mcg (2,000 unit) cap Take 1 capsule by mouth once daily. - levothyroxine (LEVOXYL) 150 mcg tablet Take 1 tablet by mouth once daily. Take on empty stomach. For Thyroid. Problem List As Of Date 08/08/2024 Noted Resolved Psoriasis [L40.9] 08/19/2006 06/02/2013 Unspecified Seborrheic Dermatitis [L21.9] 08/19/2006 04/12/2010 XEROSIS [L73.9] 08/19/2006 04/12/2010 History of thyroid cancer [Z85.850] 12/10/2006 GERD (gastroesophageal reflux disease) [K21.9] 07/20/2007 Unilateral complete paralysis of vocal cord [J3*09/14/2007 Gastrointestinal Malfunction Arising from Menta*04/30/2009 04/12/2010 Marfan's syndrome [Q87.40] 06/13/2011 Hypocalcemia [E83.51] 04/01/2012 Postsurgical hypothyroidism [E89.0] 10/02/2006 Vitamin D deficiency [E55.9] 06/02/2013 Hypertension [I10] 06/02/2013 Chronic bilateral low back pain without sciatic*07/05/2021 Encounter Status:Closed by MARY APARICIO on 08/09/24 [facility] CNOVraj 07-29-2024 CNOV Office Visit (FAMPWS ) BRICE UMANZOR ([id number]) 1965 F Date Time Provider Department 07/29/24 4:40 PM CINDY ALEGRE During your visit today, we recorded the following information about you: Pulse Respiration Blood pressure Weight 74/minute 16/minute 124/78 76.5 kg Cindy Alegre MD 07/29/2024 5:24 PM Signed Chief Complaint Patient presents with: 6 Month Exam HPI Brice Umanzor is a 58 year old female who presents here today for 6 month follow up. Her son is 38 years old and recently dx with MS so she has been caring for him a lot now that he is in a wheelchair. He lives with her. She is still working. Works at [employer] where things have been busy, not doing any OT at this time. No bowel, Gi, or urinary issues. GERD: Prilosec increased to 40 mg 1-2 x daily. Doing well on this dose. She states occ she gets an episode where she has sx, maybe once every few months. Unable to correlate what triggers it. Thyroid: Stable on current regimen of Levothyroxine 150 mcg once daily. No missed dosages. HTN: checking BP occ at home, but admits that she hasn't been checking lately. Taking Toprol xl 50 mg once daily. No chest pains, dizziness, or SOB. Past medical history, appointments, medications, allergies reviewed. 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 Repaired at [facility] by Dr. aCrlos Vizcaino. THYROIDECTOMY TOTAL/COMPLETE 09/2006 Family History FAMILY HISTORY Problem Relation Age of Onset Heart Mother marfans syndrome Hypertension Mother other (Marfan's syndrome) Mother Heart Father Kidney Disease Father other (Marfan's) Sister other (Marfan's syndrome) Brother Colon Cancer Maternal Grandmother 70 other (Marfan's syndrome) Maternal Grandmother other (Marfan's syndrome) Maternal Uncle Patient Allergies ALLERGIES No Known Allergies Current Medications Current Outpatient Medications on File Prior to Visit Medication Sig levothyroxine (LEVOXYL) 150 mcg tablet Take 1 tablet by mouth once daily. Take on empty stomach. For Thyroid. metoprolol succinate ER (TOPROL XL) 50 mg 24 hr tablet Take 1 tablet by mouth once daily. omeprazole (PRILOSEC) 40 mg capsule Take one capsule 1-2 times a day Cholecalciferol, Vitamin D3, 50 mcg (2,000 unit) cap Take 1 capsule by mouth once daily. No current facility-administered medications on file prior to visit. Social History Social History Tobacco Use Smoking status: Former Current packs/day: 0.00 Types: Cigarettes Start date: 03/26/1983 Quit date: 03/26/1984 Years since quittin.3 Smokeless tobacco: Never Tobacco comments: 1-2 cigarrette daily in past last cigarette in high school Vaping Use Vaping status: Never Used Substance Use Topics Alcohol use: Yes Comment: Occasionally Drug use: No EXAM: BP 124/78 Pulse 74 Resp 16 Wt 76.5 kg (168 lb 10.4 oz) LMP 08/27/2019 (LMP Unknown) BMI 27.85 kg/m? General Appearance: Well appearing, alert, in no acute distress, well-hydrated, well nourished.. Neck: Supple, no adenopathy; thyroid symmetric, normal size,. Lungs: Lungs clear to auscultation. No wheezing, rhonchi, rales.. Heart: RRR without murmur, gallop, or rubs. No ectopy. Health Maintenance List Depression Screening Never done Anxiety Screening Never done Hepatitis C Screening Never done HIV Screening Never done Hepatitis B Vaccine(1 of 3 - 19+ 3-dose series) Never done Shingrix Vaccine(1 of 2) Never done Influenza Vaccine(1) due on 06/26/2024 Covid-19 Vaccine(2023- season) due on 06/26/2024 Annual PCP Team Chronic Disease Visit due on 01/20/2025 Mammogram Screening due on 03/03/2025 BP Controlled (<130/80) due on 05/27/2025 Lipid Screening due on 04/08/2026 Colorectal Cancer Screening due on 01/19/2027 Diabetes Screening due on 07/28/2027 DTaP,Tdap,Td Vaccine(3 - Td or Tdap) due on 12/03/2027 Cervical Cancer Screening due on 03/16/2028 Data reviewed Appointment on 07/28/2024 Component Date Value Protein, Total 07/28/2024 7.1 Albumin 07/28/2024 4.1 Calcium, Total 07/28/2024 8.4 (L) (more content not included)... Normal [facility] CBC panel Auto (Bld)on 07-28 Erythrocyte distribution width (RBC) [Ratio] 12.6 % Normal 11.5-15.0 [facility] Comment on above: Order Comment: Speci men Type: BLOOD SPECIMENOrdering Facility: [facility] Address: [address] [place] [address] Performed By: #### 5 8410-2 ####[facility] LABIA [id number] [place] [address] [place] Hematocrit (Bld) [Volume fraction] 37.5 % Normal 36.0-46.0 [facility] Comment on above: Order Comment: Speci men Type: BLOOD SPECIMENOrdering Facility: [facility] Address: [address] [place] [address] Performed By: #### 5 8410-2 ####[facility] LABCLIA [id number] [place] [address] [place] Hemoglobin (Bld) [Mass/Vol] 12.4 g/dL Normal 11.5-15.5 [facility] Comment on above: Order Comment: Speci men Type: BLOOD SPECIMENOrdering Facility: [facility] Address: [address] [place] [address] Performed By: #### 5 8410-2 ####[facility] LABCLIA [id number] [place] [address] [place] MCH (RBC) [Entitic mass] 30.2 pg Normal 26.0-34.0 [facility] Comment on above: Order Comment: Speci men Type: BLOOD SPECIMENOrdering Facility: [facility] Address: [address] [place] [address] Performed By: #### 5 8410-2 ####[facility] LABCLIA [id number] [place] [address] [place] MCHC (RBC) [Mass/Vol] 33.1 g/dL Normal 30.5-36.0 [facility] Comment on above: Order Comment: Speci men Type: BLOOD SPECIMENOrdering Facility: [facility] Address: [address] [place] [address] Performed By: #### 5 8410-2 ####[facility] LABCLIA [id number] [place] [address] [place] MCV (RBC) [Entitic vol] 91.5 fL Normal 80.0-100.0 [facility] Comment on above: Order Comment: Speci men Type: BLOOD SPECIMENOrdering Facility: [facility] Address: [address] [place] [address] Performed By: #### 5 8410-2 ####[facility] LABIA [id number] [place] [address] [place] Nucleated RBC (Bld) [#/Vol] 10*3/uL Normal <0.01 [facility] Comment on above: Order Comment: Speci men Type: BLOOD SPECIMENOrdering Facility: [facility] Address: [address] [place] [address] Performed By: #### 5 8410-2 ####[facility] LABCLIA [id number] [place] [address] [place] Platelet mean volume (Bld) [Entitic vol] 9.1 fL Normal 9.0-12.7 [facility] Comment on above: Order Comment: Speci men Type: BLOOD SPECIMENOrdering Facility: [facility] Address: [address] [place] [address] Performed By: #### 5 8410-2 ####[facility] LABCLIA [id number] [place] [address] [place] Platelets (Bld) [#/Vol] 264 10*3/uL Normal 150-400 [facility] Comment on above: Order Comment: Speci men Type: BLOOD SPECIMENOrdering Facility: [facility] Address: [address] [place] [address] Performed By: #### 5 8410-2 ####[facility] LABCLIA [id number] [place] [address] [place] RBC (Bld) [#/Vol] 4.10 10*6/uL Normal 3.90-5.20 [facility] Comment on above: Order Comment: Speci men Type: BLOOD SPECIMENOrdering Facility: [facility] Address: [address] [place] [address] Performed By: #### 5 8410-2 ####[facility] LABCLIA [id number] [place] [address] [place] WBC (Bld) [#/Vol] 6.01 10*3/uL Normal 3.70-11.00 [facility] Comment on above: Order Comment: Speci men Type: BLOOD SPECIMENOrdering Facility: [facility] Address: [address] [place] [address] Performed By: #### 5 8410-2 ####[facility] LABIA [id number] [place] [address] [place] Comprehensive metabolic 2000 panelon 07-28-2024 Albumin [Mass/Vol] 4.1 g/dL Normal 3.9-4.9 [facility] Comment on above: Order Comment: Speci men Type: BLOOD SPECIMENOrdering Facility: [facility] Address: [address] [place], [place] [address] Performed By: #### 2 4323-8, 3024-7, 6-3 ####[facility] LABCLIA [id number] [place] [address] [place] ALP [Catalytic activity/Vol] 87 U/L Normal 34-123 [facility] Comment on above: Order Comment: Speci men Type: BLOOD SPECIMENOrdering Facility: [facility] Address: [address] [place] [address] Performed By: #### 2 4323-8, 3024-7, 3015-3 ####[facility] LABIA [id number] [place] [address] [place] ALT [Catalytic activity/Vol] 17 U/L Normal 7-38 [facility] Comment on above: Order Comment: Speci men Type: BLOOD SPECIMENOrdering Facility: [facility] Address: [address] [place] [address] Performed By: #### 2 4323-8, 3023-7, 3015-3 ####[facility] LABIA [id number] [place] [address] [place] Anion gap [Moles/Vol] 11 mmol/L Normal 8-15 [facility] Comment on above: Order Comment: Speci men Type: BLOOD SPECIMENOrdering Facility: [facility] Address: [address] [place] [address] Performed By: #### 2 4323-8, 3024-7, 6-3 ####[facility] LABCLIA [id number] [place] [id number] [place] AST [Catalytic activity/Vol] 22 U/L Normal 13-35 [facility] Comment on above: Order Comment: Speci men Type: BLOOD SPECIMENOrdering Facility: [facility] Address: [address] [place], [place] [address] Performed By: #### 2 4323-8, 302-7, 3015-3 ####[facility] LABCLIA [id number] [address] [address] [place] Bilirubin [Mass/Vol] 0.2 mg/dL Normal 0.2-1.3 [facility] Comment on above: Order Comment: Speci men Type: BLOOD SPECIMENOrdering Facility: [facility] Address: [address] [place] [address] Performed By: #### 2 4323-8, 3023-7, 3015-3 ####[facility] LABCLIA [id number] [place] [address] [place] Calcium [Mass/Vol] 8.4 mg/dL Low 8.5-10.2 [facility] Comment on above: Order Comment: Speci men Type: BLOOD SPECIMENOrdering Facility: [facility] Address: [address] [place] [address] Performed By: #### 2 4323-8, 7, 3 ####[facility] LABCLIA [id number] [place] [address] [place] Chloride [Moles/Vol] 101 mmol/L Normal 98-107 [facility] Comment on above: Order Comment: Speci men Type: BLOOD SPECIMENOrdering Facility: [facility] Address: [address] [place] [address] Performed By: #### 2 4323-8, 3023-7, 3 ####[facility] LABCLIA [id number] [address] [address] [place] CO2 [Moles/Vol] 27 mmol/L Normal 22-30 [facility] Comment on above: Order Comment: Speci men Type: BLOOD SPECIMENOrdering Facility: [facility] Address: [address] [place] [address] Performed By: #### 2 4323-8, 3023-7, 3015-3 ####[facility] LABIA [id number] [address] [address] [place] Creatinine [Mass/Vol] 0.87 mg/dL Normal 0.58-0.96 [facility] Comment on above: Order Comment: Specquinton valladares Type: BLOOD SPECIMENOrdering Facility: [facility] Address: [address] [place] [address] Performed By: #### 2 4323-8, 3024-7, 3016-3 ####[facility] LABIA [id number] [place] [address] [place] Creatinine and Glomerular filtration rate.predicted panel (S/P/Bld) 78 mL/min/1.73m??? Normal >=60 [facility] Comment on above: Order Comment: Jaret valladares Type: BLOOD SPECIMENOrdering Facility: [facility] Address: [address] [place] [address] Result Comment: Jennifer mated Glomerular Filtration Rate (eGFR) is calculated using the 2020 CKD-EPI creatinine equation. This equation utilizes serum creatinine, sex, and age as parameters. The creatinine assay has traceable calibration to isotope dilution-mass spectrometry. Refer to KDIGO guidelines for clinical interpretation. In patients with unstable renal function, e.g. those with acute kidney injury, the eGFR may not accurately reflect actual GFR. Performed By: #### 2 4323-8, 3024-7, 6-3 ####[facility] LABIA [id number] [place] [address] [place] Glucose [Mass/Vol] 90 mg/dL Normal 74-99 [facility] Comment on above: Order Comment: Speci blaine Type: BLOOD SPECIMENOrdering Facility: [facility] Address: [address] [place] [address] Result Comment: The [place] [employer] (ADA) provides guidance for cutoff values for fasting glucose and random glucose. The ADA defines fasting as no caloric intake for at least 8 hours. Fasting plasma glucose results between 100 to 125 mg/dL indicate increased risk for diabetes (prediabetes). Fasting plasma glucose results greater than or equal to 126 mg/dL meet the criteria for diagnosis of diabetes. In the absence of unequivocal hyperglycemia, results should be confirmed by repeat testing. In a patient with classic symptoms of hyperglycemia or hyperglycemic crisis, random plasma glucose results greater than or equal to 200 mg/dL meet the criteria for diagnosis of diabetes. Reference: Standards of Medical Care in Diabetes 2016, [place] [employer]. Diabetes Care. 2016.39(Suppl 1). Performed By: #### 2 4323-8, 4-7, 6-3 ####[facility] LABCLIA [id number] [place] [address] [place] Potassium [Moles/Vol] 4.1 mmol/L Normal 3.7-5.1 [facility] Comment on above: Order Comment: Speci men Type: BLOOD SPECIMENOrdering Facility: [facility] Address: [address] [place] [address] Performed By: #### 2 4323-8, 3024-04, 3 ####[facility] LABCLIA [id number] [place] [address] [place] Protein [Mass/Vol] 7.1 g/dL Normal 6.3-8.0 [facility] Comment on above: Order Comment: Speci men Type: BLOOD SPECIMENOrdering Facility: [facility] Address: [address] [place] [address] Performed By: #### 2 4323-8, 3024-04, 3 ####[facility] LABCLIA [id number] [place] [address] [place] Sodium [Moles/Vol] 139 mmol/L Normal 136-144 [facility] Comment on above: Order Comment: Speci men Type: BLOOD SPECIMENOrdering Facility: [facility] Address: [address] [place] [address] Performed By: #### 2 4323-8, 3023-7, 6-3 ####[facility] LABCLIA [id number] [place] [address] [place] Urea nitrogen [Mass/Vol] 16 mg/dL Normal 7-21 [facility] Comment on above: Order Comment: Speci men Type: BLOOD SPECIMENOrdering Facility: [facility] Address: [address] [place] [address] Performed By: #### 2 4323-8, 3024-7, 3016-3 ####[facility] LABIA [id number] [place] [address] [place] T4 Free SerPl-mCncon 024 Free T4 [Mass/Vol] 1.5 ng/dL Normal 0.9-1.7 [facility] Comment on above: Order Comment: Speci men Type: BLOOD SPECIMENOrdering Facility: [facility] Address: [address] [place] [address] Performed By: #### 2 4323-8, 3024-7, 3016-3 ####[facility] LABIA [id number] [place] [address] [place] TSH SerPl-aCncon 07-28-2024 TSH Qn 4.450 m[IU]/L High 0.270-4.200 [facility] Comment on above: Order Comment: Speci men Type: BLOOD SPECIMENOrdering Facility: [facility] Address: [address] [place] [address] Performed By: #### 2 4323-8, 3024-7, 3016-3 ####[facility] LABIA [id number] [place] [address] [place] CNPHilary 07-27-2024 CNPN Telephone (FAMPWS) BRICE UMANZOR ([id number]) 1965 F Date Time Provider Department 07/27/24 CINDY ALEGRE During your visit today, we recorded the following information about you: Mary Aparicio LPN 07/27/2024 9:21 AM Signed Pt has a 6 month FU 07/29/24 AND is asking if she needs any labs prior to that appt? CONSTANTINE Lora Mark D, MD 07/28/2024 8:39 AM Signed Labs ordered; if she is not able to get them done before tomorrow that is OK MD Jackie Bello Barbara, LPN 07/28/2024 9:23 AM Signed TC to pt. Left a detailed message on a secure line with updates. Eun Mejia LPN Allergies As of Date: 07/27/2024 (No Known Allergies) Date Reviewed: 05/27/2024 Reviewed by: Bree Santiago MA - Fully Assessed Reason for Visit: Orders [681] Primary Visit Diagnosis:Primary hypertension [I10] Other Visit Diagnoses:Postsurgica l hypothyroidism [E89.0] Gastroesophageal reflux disease, unspecified whether esophagitis present [K21.9] Order(s):THYROID STIMULATING HORMONE [SQTSH] Order #: [id number] FUTURE T4 FREE/FREE THYROXINE [SQFT4] Order #: [id number] FUTURE COMPREHENSIVE METABOLIC PANEL [SQCMP] Order #: [id number] FUTURE COMPLETE BLOOD COUNT [SQCBC] Order #: [id number] FUTURE Prescriptions as of 07/28/2024 - levothyroxine (LEVOXYL) 150 mcg tablet Take 1 tablet by mouth once daily. Take on empty stomach. For Thyroid. - metoprolol succinate ER (TOPROL XL) 50 mg 24 hr tablet Take 1 tablet by mouth once daily. - omeprazole (PRILOSEC) 40 mg capsule Take one capsule 1-2 times a day - Cholecalciferol, Vitamin D3, 50 mcg (2,000 unit) cap Take 1 capsule by mouth once daily. Problem List As Of Date 07/27/2024 Noted Resolved Psoriasis [L40.9] 08/19/2006 06/02/2013 Unspecified Seborrheic Dermatitis [L21.9] 08/19/2006 04/12/2010 XEROSIS [L73.9] 08/19/2006 04/12/2010 History of thyroid cancer [Z85.850] 12/10/2006 GERD (gastroesophageal reflux disease) [K21.9] 07/20/2007 Unilateral complete paralysis of vocal cord [J3*09/14/2007 Gastrointestinal Malfunction Arising from Menta*04/30/2009 04/12/2010 Marfan's syndrome [Q87.40] 06/13/2011 Hypocalcemia [E83.51] 04/01/2012 Postsurgical hypothyroidism [E89.0] 10/02/2006 Vitamin D deficiency [E55.9] 06/02/2013 Hypertension [I10] 06/02/2013 Chronic bilateral low back pain without sciatic*07/05/2021 Encounter Status:Closed by EUN MEJIA on 07/28/24 Normal [facility] CNOVon 05-27-2024 CNOV Office Visit (OBGYWM ) BRICE UMANZOR ([id number]) 1965 F Date Time Provider Department 05/27/24 9:00 AM ALONDRA WALTER OBELVIRA During your visit today, we recorded the following information about you: Blood pressure Weight Height 120/76 74.1 kg 1.657 m Alondra Walter MD 05/27/2024 9:25 AM Signed Food Porter offered: Patient declines. Sandoval is a 58 year old who presents for an annual gynecologic exam without complaints. Postmenopausal: Yes HRT use: No. 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: Sexual Activity: Not Currently; Male Contraception: No contraception data on record PAST MEDICAL HISTORY No date: Esophageal reflux No date: Hypertension No date: Marfan syndrome Comment: Eyes, no heart involvement 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 Comment: Thyroid cancer No date: PMH - PAST MEDICAL HISTORY OF Comment: Cervical strain No date: 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 Repaired at [facility] by Dr. Carlos Vizcaino. 09/2006: THYROIDECTOMY TOTAL/COMPLETE FAMILY HISTORY Problem Relation Age of Onset Heart Mother marfans syndrome Hypertension Mother other (Marfan's syndrome) Mother Heart Father Kidney Disease Father other (Marfan's) Sister other (Marfan's syndrome) Brother Colon Cancer Maternal Grandmother 70 other (Marfan's syndrome) Maternal Grandmother other (Marfan's syndrome) Maternal Uncle SOCIAL HISTORY Social History Tobacco Use Smoking status: Former Years: 1 Types: Cigarettes Quit date: 03/26/1984 Years since quittin.1 Smokeless tobacco: Never Tobacco comments: 1-2 cigarrette daily in past last cigarette in high school Vaping Use Vaping Use: Never used Substance Use Topics Alcohol use: Yes Comment: Occasionally Drug use: No REVIEW OF SYSTEMS Abdomen: No abdominal pain, nausea, vomiting, diarrhea, or constipation. No bloating, early satiety, indigestion, or increased flatulence. Bladder: No dysuria, gross hematuria, urinary frequency, urinary urgency, or incontinence Breast: No breast lumps, nipple d/c, overlying skin changes, redness or skin retraction Allergies and current medication updated:Yes EXAM: BP 120/76 Ht 5' 5.25 (1.66m) Wt 163 lb 6.4 oz (74.1kg) LMP 08/27/2019 BMI 26.99 kg/(m2). GENERAL: pleasant, female in no apparent distress HEENT: Normocephalic and atraumatic NECK: full range of motion DERMATOLOGY: Normal, without lesions, non-icteric, and non-hirsute BREAST: soft, non-tender, symmetric, no dominant mass, normal nipple-areolar complex, no lymphadenopathy, and no nipple discharge CHEST: Normal inspiratory effort ABDOMEN: soft, non-tender, and no masses PELVIC: external genitalia normal, normal Bartholin's glands, urethra, Breese's glands, no vulvar lesions, no cervical lesions, good vaginal support, physiologic discharge present, normal appearing perineal body and perianal region, vaginal atrophy noted BIMANUAL: uterus normal size, shape and consistency, no adnexal masses, and non-tender RECTOVAGINAL: deferred. NEURO: exam grossly non-focal EXTREMITIES: normal ASSESSMENT/PLAN: 1) Health maintenance: Pap/HPV up to date. Mammogram up to date Nutrition, exercise and routine health maintenance exams reviewed. Colon cancer screening: up to date with screening TSH/lipids/glucose: followed by PCP 2) Follow up one year or sooner as needed DO Jose Angel Cornell Sara, MD 05/27/2024 9:25 AM Signed Calcium and Vitamin D Supplementation (from the National Institutes of Health Office of Dietary Supplements 2010) Calcium is required by the body for blood vessel, muscle, hormone and nerve functioning. Most of the body's calcium is stored in the bones and teeth where it supports structure and function. Bone is continuously broken down and reformed. When bone breakdown exceeds formation, especially in postmenopausal women, bone loss can increase th (more content not included)... Normal [facility] CNCOon 03-03-2024 CNCO HNO ID: [id number] Author: COORDINATOR, MAMMOGRAPHY, ? Service: ? Author Type: Physician Type: Letter Filed: 03/03/2024 12:26 Note Text: March 03, 2024 PID: [id number] Brice Umanzor [address] [place] [address] Dear Ms. Umanzor, We are pleased to inform you that the results of your recent breast imaging exam on 03/03/2024 are normal. Your mammogram demonstrates that you have dense breast tissue, which could hide abnormalities. Dense breast tissue, in and of itself, is a relatively common condition. Therefore, this information is not provided to cause undue concern; rather, it is to raise your awareness and promote discussion with your health care provider regarding the presence of dense breast tissue in addition to other risk factors. Early detection of cancer is very important. We also understand recommendations regarding breast cancer screening are controversial. Please discuss with your primary care provider which strategy is best for you and whether a mammogram is right for you. Your imaging studies and report will be kept on file at [facility] as part of your permanent medical record and are available for your continuing care. Thank you for allowing us to help in meeting your health care needs. Sincerely, Dr. Young Interpreting Radiologist [facility] (Normal over 40) Normal [facility] SCREENINGon 03-03-2024 [facility] SCREENING * * *Final Report* * * DATE OF EXAM: Mar 03 2024 7:51AM [facility] [id number] - [facility] SCREENING / PROCEDURE REASON: Encounter for screening mammogram for breast cancer * * * * Physician Interpretation * * * * RESULT: #[id number] - [facility] SCREENING BILATERAL DIGITAL SCREENING MAMMOGRAM WITH CAD: 03/03/2024 HISTORY: /Screening Mammogram - patient reports NO breast symptoms /priors available for comparison Encounter For Screening Mammogram For Breast Cancer. RESULT: TECHNIQUE: The study was acquired using full field digital technology and interpreted from soft copy. Current study was also evaluated with a Computer Aided Detection (CAD). Comparison is made to exams dated: 10/06/2022 mammogram, 09/03/2021 mammogram, 08/27/2020 mammogram - [facility], and 08/15/2019 mammogram - [facility]. The breasts are heterogeneously dense, which may obscure small masses. No significant masses, calcifications, or other findings are seen in either breast. There has been no significant interval change. IMPRESSION: NEGATIVE There is no mammographic evidence of malignancy. A 1 year screening mammogram is recommended. Bunny sparks/santos:03/03/2024 12:26:10 Mixing And Molding Machine Operator(s): RT Ezekiel(Barby)(M), [facility] letter sent: Normal over 40 Mammogram BI-RADS: 1 Negative Multiple national specialty organizations have released breast cancer screening guidelines for women at average risk for developing breast cancer - guidelines that are based on both evidence and opinion, yet differ on when to start and how often to screen for breast cancer. With representation from Breast Imaging, Internal Medicine, Women's Health, Family Medicine, and Medical/Surgical Oncology, the [facility] has carefully reviewed the data and reached the following consensus: 1) All women should engage in shared decision-making with their providers to decide when to start and how often to screen; 2) All women should have the opportunity to start screening mammography at age 40; 3) For women ages 45-55, we recommend annual screening mammograms; 4) For women ages 55 and over, we support both the transition from an annual to a biennial interval if this aligns more with patient's values and preferences, or continuation with annual screening; 5) All women should discuss with their providers when to stop screening mammograms. County Assessor: Santos Transcribe Date/Time: Mar 03 2024 7:30A Dictated by: BUNNY YOUNG MD This examination was interpreted and the report reviewed and electronically signed by: BUNNY YOUNG MD on Mar 03 2024 12:26PM EST [id number] Normal [facility] Breast Screeningon 2023 IMPRESSION: NEGATIVE There is no mammographic evidence of malignancy. A 1 year screening mammogram is recommended. Bunny sparks/santos:03/03/2024 12:26:10 Mixing And Molding Machine Operator(s): RT Ezekiel(Barby)(M)[facility] letter sent: Normal over 40 Mammogram BI-RADS: 1 Negative Multiple national specialty organizations have released breast cancer screening guidelines for women at average risk for developing breast cancer - guidelines that are based on both evidence and opinion, yet differ on when to start and how often to screen for breast cancer. With representation from Breast Imaging, Internal Medicine, Women's Health, Family Medicine, and Medical/Surgical Oncology, the [facility] has carefully reviewed the data and reached the following consensus: 1) All women should engage in shared decision-making with their providers to decide when to start and how often to screen; 2) All women should have the opportunity to start screening mammography at age 40; 3) For women ages 45-55, we recommend annual screening mammograms; 4) For women ages 55 and over, we support both the transition from an annual to a biennial interval if this aligns more with patient's values and preferences, or continuation with annual screening; 5) All women should discuss with their providers when to stop screening mammograms. County Assessor: Santos Transcribe Date/Time: Mar 03 2024 7:30A Dictated by: BUNNY YOUNG MD This examination was interpreted and the report reviewed and electronically signed by: BUNNY YOUNG MD on Mar 03 2024 12:26PM [facility] DIVISION OF RADIOLOGY * * *Final Report* * * DATE OF EXAM: Mar 03 2024 7:51AM [facility] [id number] - [facility] SCREENING / PROCEDURE REASON: Encounter for screening mammogram for breast cancer * * * * Physician Interpretation * * * * RESULT: #[id number] - EH SCREENING BILATERAL DIGITAL SCREENING MAMMOGRAM WITH CAD: 03/03/2024 HISTORY: /Screening Mammogram - patient reports NO breast symptoms /priors available for comparison Encounter For Screening Mammogram For Breast Cancer. RESULT: TECHNIQUE: The study was acquired using full field digital technology and interpreted from soft copy. Current study was also evaluated with a Computer Aided Detection (CAD). Comparison is made to exams dated: 10/06/2022 mammogram, 09/03/2021 mammogram, 08/27/2020 mammogram - [facility], and 08/15/2019 mammogram - [facility]. The breasts are heterogeneously dense, which may obscure small masses. No significant masses, calcifications, or other findings are seen in either breast. There has been no significant interval change. DIVISION OF RADIOLOGY Provider, [facility] - 03/03/2024 * * *Final Report* * * DATE OF EXAM: Mar 03 2024 7:51AM [facility] [id number] - [facility] SCREENING / PROCEDURE REASON: Encounter for screening mammogram for breast cancer * * * * Physician Interpretation * * * * RESULT: #[id number] - EH SCREENING BILATERAL DIGITAL SCREENING MAMMOGRAM WITH CAD: 03/03/2024 HISTORY: /Screening Mammogram - patient reports NO breast symptoms /priors available for comparison Encounter For Screening Mammogram For Breast Cancer. RESULT: TECHNIQUE: The study was acquired using full field digital technology and interpreted from soft copy. Current study was also evaluated with a Computer Aided Detection (CAD). Comparison is made to exams dated: 10/06/2022 mammogram, 09/03/2021 mammogram, 08/27/2020 mammogram - [facility], and 08/15/2019 mammogram - [facility]. The breasts are heterogeneously dense, which may obscure small masses. No significant masses, calcifications, or other findings are seen in either breast. There has been no significant interval change. IMPRESSION IMPRESSION: NEGATIVE There is no mammographic evidence of malignancy. A 1 year screening mammogram is recommended. Bunny sparks/santos:03/03/2024 12:26:10 Mixing And Molding Machine Operator(s): RT Ezekiel(R)(M), [facility] letter sent: Normal over 40 Mammogram BI-RADS: 1 Negative Multiple national specialty organizations have released breast cancer screening guidelines for women at average risk for developing breast cancer - guidelines that are based on both evidence and opinion, yet differ on when to start and how often to screen for breast cancer. With representation from Breast Imaging, Internal Medicine, Women's Health, Family Medicine, and Medical/Surgical Oncology, the [facility] has carefully reviewed the data and reached the following consensus: 1) All women should engage in shared decision-making with their providers to decide when to start and how often to screen; 2) All women should have the opportunity to start screening mammography at age 40; 3) For women ages 45-55, we recommend annual screening mammograms; 4) For women ages 55 and over, we support both the transition from an annual to a biennial interval if this aligns more with patient's values and preferences, or continuation with annual screening; 5) All women should discuss with their providers when to stop screening mammograms. County Assessor: Santos Transcribe Date/Time: Mar 03 2024 7:30A Dictated by: BUNNY YOUNG MD This examination was interpreted and the report reviewed and electronically signed by: BUNNY YOUNG MD on Mar 03 2024 12:26PM EST [facility] Radiology Study observation (narrative) Jimi raymond [facility] MG Breast ScreeningOrdered B y: [facility] Provider on 03-03-2024 [facility] Basophil percentageOrdered B y: Dr. Turner on 03-31-2023 Chloride [Moles/Vol] 106 mmol/L 98-107 [facility] Glucose [Mass/Vol] 96 mg/dL 74-106 [facility] Potassium [Moles/Vol] 4.2 mmol/L 3.5-5.1 [facility] Sodium [Moles/Vol] 137 mmol/L 136-145 [facility] WBC (Bld) [#/Vol] 5.4 10*3/uL 4.4-11.0 [facility] Blood erythrocytes count (nu mber/volume)Ordered By: Dr. Turner on 03-31-2023 RBC (Bld) [#/Vol] 4.23 10*6/uL 4.2-5.4 [facility] Blood hemoglobin measurement (mass/volume)Ordered By: Dr. Turner on 03-31-2023 Hemoglobin (Bld) [Mass/Vol] 12.8 g/dL 12.0-15.0 [facility] Blood platelet mean volumeOr dered By: Dr. Turner on 03-31-2023 Platelet mean volume (Bld) [Entitic vol] 8.8 fL 6.2-12.0 [facility] Determination of erythrocyte mean corpuscular volume (MCV)Ordered By: Dr. Turner on 03-31-2023 MCV (RBC) [Entitic vol] 91.7 fL 81-99 [facility] Hematocrit Auto (Bld) [Volum e fraction]Ordered By: Dr. Turner on 03-31-2023 Hematocrit (Bld) [Volume fraction] 38.8 % 37-47 [facility] Laboratory - Chemistry and C hemistry - challengeOrdered By: Dr. Turner on 03-31-2023 CO2 [Moles/Vol] 29.0 mmol/L 21.0-32.0 [facility] Urea nitrogen/Creatinine [Mass ratio] 17.6 mg/mg 10-20 [facility] - Hematology and Cell countsOrdered By: Dr. Turner on 03-31-2023 Erythrocyte distribution width (RBC) [Entitic vol] 42.5 fL 35.1-43.9 [facility] Erythrocyte distribution width (RBC) [Ratio] 12.7 % 11.6-14.6 [facility] MCH (RBC) [Entitic mass] 30.3 pg 27.0-32.0 [facility] MCHC Auto (RBC) [Mass/Vol]Or dered By: Dr. Turner on 03-31-2023 MCHC (RBC) [Mass/Vol] 33.0 g/dL 32-36 [facility] No Panel InformationOrdered By: Dr. Turner on 03-31-2023 Estimated GFR (MDRD) Amer 89 mL/min >60 [facility] Comment on above: GFR Calc Estimated GFR (MDRD) Non-Af Amer 73 mL/min >60 [facility] Comment on above: Non- GFR Calc Thyroid Stimulating Hormone (TSH) 17.20 uIU/mL 0.358-3.74 [facility] Platelets bldOrdered By: Dr. Turner on 03-31-2023 Platelets (Bld) [#/Vol] 268 10*3/uL 150-450 [facility] Serum or plasma calcium judy urement (mass/volume)Ordered By: Dr. Turner on 03-31-2023 Calcium [Mass/Vol] 8.2 mg/dL 8.5-10.1 [facility] Serum or plasma creatinine m easurement (mass/volume)Ordered By: Dr. Turner on 03-31-2023 Creatinine [Mass/Vol] 0.85 mg/dL 0.55-1.02 [facility] Comment on above: The validity of the calculated GFR & GFRAA in patients over 70 years has not been determined. Clinical correlation is essential. Serum or plasma urea nitroge n measurement (mass/volume)Ordered By: Dr. Turner on 03-31-2023 Urea nitrogen [Mass/Vol] 15 mg/dL 7-18 [facility] Thin prep Papanicolaou smear with manual screeningOrdered By: Dr. Turner on 03-31-2023 Thin prep Papanicolaou smear with manual screening 2 5-15 [facility] EH SCREENINGon 10-06-2022 [facility] Vital Signs Date Time Vital Sign Value Performing Clinician Aylin kitchen 01-31-2025 16:44-0400 Diastolic blood pressure 82 mm[Hg] Cindy Alegre MD Work Phone: [facility] 01-31-2025 16:44-0400 Systolic blood pressure 134 mm[Hg] Cindy Alegre MD Work Phone: [facility] 01-31-2025 16:31-0400 Body mass index (BMI) [Ratio] 26.87 kg/m2 Cindy Alegre MD Work Phone: [facility] 01-31-2025 16:31-0400 Body weight 73.8 kg Cindy Alegre MD Work Phone: [facility] 01-31-2025 16:31-0400 Heart rate 80 /min Cindy Alegre MD Work Phone: [facility] 01-31-2025 16:31-0400 Respiratory rate 16 /min Cindy Alegre MD Work Phone: [facility] 01-31-2025 16:31-0400 SaO2% (BldA) [Mass fraction] 97 % Cindy Alegre MD Work Phone: [facility] 07-29-2024 16:45-0400 Body mass index (BMI) [Ratio] 27.85 kg/m2 Cindy Alegre MD Work Phone: [facility] 07-29-2024 16:45-0400 Body weight 76.5 kg Cindy Alegre MD Work Phone: [facility] 07-29-2024 16:45-0400 Diastolic blood pressure 78 mm[Hg] Cindy Alegre MD Work Phone: [facility] 07-29-2024 16:45-0400 Heart rate 74 /min Cindy Alegre MD Work Phone: [facility] 07-29-2024 16:45-0400 Respiratory rate 16 /min Cindy Alegre MD Work Phone: [facility] 07-29-2024 16:45-0400 Systolic blood pressure 124 mm[Hg] Cindy Alegre MD Work Phone: [facility] 05-27-2024 09:11-0400 Body height 165.7 cm Alondra Walter MD Work Phone: [facility] 05-27-2024 [id number] Body mass index (BMI) [Ratio] 26.98 kg/m2 Alondra Walter MD Work Phone: [facility] 05-27-2024 [id number] Body weight 74.12 kg Alondra Walter MD Work Phone: [facility] 05-27-2024 09:11-0400 Diastolic blood pressure 76 mm[Hg] Alondra Walter MD Work Phone: [facility] 05-27-2024 09:11-0400 Systolic blood pressure 120 mm[Hg] Alondra Walter MD Work Phone: [facility] 04-02-2023 16:19-0400 Body temperature 97.3 [degF] Dr. Cindy Alegre Work Phone: [facility] 04-02-2023 16:19-0400 Diastolic blood pressure 85 mm[Hg] Dr. Cindy Alegre Work Phone: [facility] 04-02-2023 16:19-0400 Heart rate 62 /min Dr. Cindy Alegre Work Phone: [facility] 04-02-2023 16:19-0400 Respiratory rate 16 /min Dr. Cindy Alegre Work Phone: [facility] 04-02-2023 16:19-0400 SaO2% (BldA) [Mass fraction] 94 % Dr. Cindy Alegre Work Phone: [facility] 04-02-2023 16:19-0400 Systolic blood pressure 143 mm[Hg] Dr. Cindy Alegre Work Phone: [facility] 04-02-2023 12:11-0400 Body height 167.[address] Cindy Alegre Work Phone: [facility] 04-02-2023 12:11-0400 Body mass index (BMI) [Ratio] 25.8 kg/m2 Dr. Cindy Alegre Work Phone: [facility] 04-02-2023 12:11-0400 Body weight 72.[address] Cindy Alegre Work Phone: [facility] 02-26-2023 07:50-0400 Body mass index (BMI) [Ratio] 26.2 kg/m2 Dr. Cindy Alegre Work Phone: [facility] 02-26-2023 07:50-0400 Body temperature 97.6 [degF] Dr. Cindy Alegre Work Phone: [facility] 02-26-2023 07:50-0400 Body weight 73.[address] Cindy Alegre Work Phone: [facility] 02-26-2023 07:50-0400 Diastolic blood pressure 79 mm[Hg] Dr. Cindy Alegre Work Phone: [facility] 02-26-2023 07:50-0400 Heart rate 73 /min Dr. Cindy Alegre Work Phone: [facility] 02-26-2023 07:50-0400 Respiratory rate 18 /min Dr. Cindy Alegre Work Phone: [facility] 02-26-2023 07:50-0400 Systolic blood pressure 133 mm[Hg] Dr. Cindy Alegre Work Phone: [facility] 01-23-2023 16:48-0400 Body weight 73.39 kg Cindy Alegre MD Work Phone: [facility] 01-23-2023 16:48-0400 Diastolic blood pressure 78 mm[Hg] Cindy Alegre MD Work Phone: [facility] 01-23-2023 16:48-0400 Heart rate 74 /min Cindy Alegre MD Work Phone: [facility] 01-23-2023 16:48-0400 Respiratory rate 16 /min Cindy Alegre MD Work Phone: [facility] 01-23-2023 16:48-0400 Systolic blood pressure 120 mm[Hg] Cindy Alegre MD Work Phone: [facility] 07-25-2022 16:38-0400 Body weight 72.58 kg Cindy Alegre MD Work Phone: [facility] 07-25-2022 16:38-0400 Diastolic blood pressure 82 mm[Hg] Cindy Alegre MD Work Phone: [facility] 07-25-2022 16:38-0400 Heart rate 77 /min Cindy Alegre MD Work Phone: [facility] 07-25-2022 16:38-0400 Respiratory rate 18 /min Cindy Alegre MD Work Phone: [facility] 07-25-2022 16:38-0400 SaO2% (BldA) [Mass fraction] 96 % Cindy Alegre MD Work Phone: [facility] 07-25-2022 16:38-0400 Systolic blood pressure 122 mm[Hg] Cindy Alegre MD Work Phone: [facility] Encounters Encounter Date Encounter Type Care Provider Facility Start: 05-08-2025 ambulatory Cindy Mack y:[facility] Start: 02-06-2025 End: 02-06-2025 Follow-up encounter Cindy Alegre MD Work Phone: [facility] [place] Start: 02-02-2025 End: 02-02-2025 ambulatory [facility] Work Phone: [facility] Comment on above: Spirometry Start: 02-02-2025 End: 02-02-2025 Patient encounter procedure [facility] Work Phone: [facility] Start: 01-31-2025 End: 01-31-2025 Subsequent hospital visit by physician Xr [facility] Work Phone: Radiology Comment on above: CHARLES (dyspnea on exer tion) [R06.09] Start: 01-31-2025 End: 01-31-2025 ambulatory CINDY LRCK Facility:[facility] Start: 01-31-2025 End: 01-31-2025 Office outpatient visit 25 minutes Cindy Alegre MD Work Phone: [facility] [place] Comment on above: Essential hypertensi on (Primary Dx); Gastroesophageal reflux disease, unspecified whether esophagitis present; Postsurgical hypothyroidism; Marfan's syndrome (HCC); CHARLES (dyspnea on exertion); Wheezing Start: 01-25-2025 End: 01-26-2025 Telephone encounter Cindy Alegre MD Work Phone: [facility] [place] Comment on above: Medication Request Start: 01-24-2025 End: 01-24-2025 ambulatory CINDY PEÑ[place] Facility:[facility] Start: 09-23-2024 End: 09-23-2024 Telephone encounter Cindy Alegre MD Work Phone: [facility] [place] Comment on above: Refill Request Start: 08-08-2024 End: 08-09-2024 Telephone encounter Cindy Alegre MD Work Phone: [facility] [place] Start: 07-29-2024 End: 07-29-2024 ambulatory CINDY PEÑ[place] Facility:[facility] Start: 07-29-2024 End: 07-29-2024 Patient encounter procedure Cindy Alegre MD Work Phone: [facility] [place] Comment on above: Primary hypertension (Primary Dx); Screening for depression; Encounter for screening examination for other mental health and behavioral disorders; Gastroesophageal reflux disease, unspecified whether esophagitis present; Postsurgical hypothyroidism; Essential hypertension; Vitamin D deficiency Start: 07-28-2024 End: 07-28-2024 [facility] Start: 07-27-2024 End: 07-28-2024 Telephone encounter Cindy Alegre MD Work Phone: [facility] [place] Comment on above: Orders Start: 05-27-2024 End: 05-27-[address] [facility] Facility:[facility] Start: 05-27-2024 End: 05-27-2024 Patient encounter procedure Alondra Walter MD Work Phone: OB/Gynecology Comment on above: Encounter for gyneco logical examination (general) (routine) without abnormal findings (Primary Dx); Encounter for screening mammogram for breast cancer Start: 05-27-2024 End: 05-27-2024 Patient encounter status Alondra Walter MD Work Phone: [facility] Start: 03-03-2024 End: 03-03-2024 ambulatory CINDY ALEGRE Facility:[facility] Start: 03-03-2024 End: 03-03-2024 Subsequent hospital visit by physician Screen Mammo [facility] Comment on above: Encounter for screen ing mammogram for breast cancer [Z12.31] Start: 02-24-2024 ambulatory Cindy steinberg MD Work Phone: [facility] [place] Start: 09-23-2023 Refill Cindy steinberg MD Work Phone: [facility] [place] Comment on above: Refill Request Start: 08-17-2023 Telephone encounter Krystin Marlo montanoof INDUSTRIAL TRACTOR DRIVERCarmenCUSTOMER ASSISTANCE REPRESENTATIVE Work Phone: [facility] [place] Comment on above: Results (Labs, Thyro id ) Start: 07-16-2023 Telephone encounter Cindy olsen MD Work Phone: Family [facility] [place] Comment on above: Patient Question Start: 07-11-2023 Refill Cindy steinberg MD Work Phone: [facility] [place] Comment on above: Refill Request Start: 04-13-2023 End: 04-13-[address] Cindy Alegre Work Phone: [facility] Work Phone: Start: 04-02-2023 Non-patient / Non-visit Dr. Davie Alegre Work Phone: [facility] Start: 04-02-2023 End: 04-02-2023 Admission to same day surgery center Dr. Cindy Alegre Work Phone: [facility] Start: 04-02-2023 End: 04-02-[address] Cindy Alegre Work Phone: [facility] Work Phone: Start: 03-31-2023 End: 04-03-[address] Cindy Alegre Work Phone: [facility] Work Phone: Start: 03-31-2023 End: 04-03-[address] Cindy Alegre Work Phone: [facility] Start: 03-30-2023 Telephone encounter Cindy olsen MD Work Phone: [facility] Comment on above: Release Of Medical R ecords Start: 02-26-2023 End: 02-26-[address] Cindy Alegre Work Phone: [facility] Start: 01-23-2023 End: 01-23-2023 Patient encounter procedure Cindy Alegre MD Work Phone: [facility] Comment on above: Primary hypertension (Primary Dx); Postsurgical hypothyroidism; Gastroesophageal reflux disease, unspecified whether esophagitis present; Chronic bilateral low back pain without sciatica Start: 10-06-2022 Documentation procedure Mammog shelia Coordinator [facility] Start: 10-06-2022 Letter encounter Mammography Coordinator [facility] Department Start: 10-06-2022 End: 10-06-2022 Subsequent hospital visit by physician Screen Mammo [facility] Comment on above: Encounter for screen ing mammogram for breast cancer [Z12.31] Start: 07-25-2022 End: 07-25-2022 Patient encounter procedure Cindy Alegre MD Work Phone: [facility] Comment on above: Primary hypertension (Primary Dx); Gastroesophageal reflux disease, unspecified whether esophagitis present; Marfan's syndrome; Postsurgical hypothyroidism; Essential hypertension; History of thyroid cancer Procedures Date Procedure Procedure Detail Performing Clinician Start: 02-02-2025 Brncdilat rspse spmt ry pre&post-brncdilat admn Cindy Alegre MD Work Phone: Start: 01-31-2025 Radiologic exam ches t 2 views Cindy Alegre MD Work Phone: Start: 07-29-2024 Adult depression scr eening assessment Cindy Alegre MD Work Phone: Start: 03-03-2024 Screening mammograph y bi 2-view breast inc cad Bulk Order Provider Start: 04-02-2023 Laparoscopic, Inguin al Hernia Repair (Left) Dr. Cindy Alegre Work Phone: Start: 10-06-2022 End: 10-06-2022 Mammography Alondra Walter MD Work Phone: Start: 09-03-2021 Mammography Cindy pedro MD Work Phone: Start: 04-08-2021 Lipid 1996 panel - S juan jose or Plasma Cindy Alegre MD Work Phone: Start: 01-19-2017 Colonoscopy Cindy pedro MD Work Phone: Plan of Treatment Date Care Activity Detail Author Start: 03-16-2028 HPV TESTING HPV TESTING [facility] Start: 03-16-2028 PAP TESTING PAP TESTING [facility] Start: 03-16-2028 Screening for malignant neoplasm of cervix [facility] Start: 12-03-2027 Urine microalbumin profile [facility] Start: 07-28-2027 Diabetes Screening Diabetes Screening [facility] Start: 01-19-2027 Colonoscopy COLONOSCOPY [facility] Start: 01-19-2027 COLORECTAL CANCER SCREENING COLORECTAL CANCER SCREENING [facility] Start: 01-19-2027 Screening for malignant neoplasm of colon [facility] Start: 04-08-2026 Lipid 1996 panel - Serum or Plasma Lipid Screening [facility] Start: 04-08-2026 Lipid panel Lipid Screening [facility] Start: 04-08-2026 LIPID SCREEN LIPID SCREEN [facility] Start: 01-31-2026 Annual PCP Team Chronic Disease Visit Annual PCP Team Chronic Disease Visit [facility] Start: 01-31-2026 Covid-19 Vaccine () Covid-19 Vaccine () [facility] Comment on above: Postponed from 06/26/2024 (Declined at t his time) Start: 01-31-2026 Hepatitis C screening Hepatitis C Screening [facility] Comment on above: Postponed from 1984 (Declined at t his time) Start: 01-31-2026 HIV screening HIV Screening [facility] Comment on above: Postponed from 1984 (Declined at t his time) Start: 01-31-2026 Pneumococcal Vaccine: 50+ (1 of 1 - PCV) Pneumococcal Vaccine: 50+ (1 of 1 - PCV) [facility] Comment on above: Postponed from 2016 (Declined at t his time) Start: 01-15-2026 DIABETES SCREEN DIABETES SCREEN [facility] Start: 01-15-2026 Diabetes Screening Diabetes Screening [facility] Start: 08-10-2025 End: 08-10-2025 Patient encounter procedure 08/10/2025 4:00 PM EDT Office Visit [facility] [place] [address] [place] [id number] Cindy Alegre MD [address] [place], [place] [id number] 6 mo f/u Family [facility] Comment on above: 6 mo f/u Start: 08-02-2025 End: 11-01-2025 Comprehensive metabolic 2000 panel - Serum or Plasma COMPREHENSIVE METABOLIC PANEL Lab Routine Essential hypertension Expected: 08/02/2025 (Approximate), Expires: 11/01/2025 [facility] Comment on above: Expected: 08/02/2025 (Approximate), Expi res: 11/01/2025 Start: 08-02-2025 End: 11-01-2025 Thyrotropin [Units/volume] in Serum or Plasma THYROID STIMULATING HORMONE Lab Routine Postsurgical hypothyroidism Expected: 08/02/2025 (Approximate), Expires: 11/01/2025 [facility] Comment on above: Expected: 08/02/2025 (Approximate), Expi res: 11/01/2025 Start: 08-02-2025 End: 11-01-2025 Thyroxine (T4) free [Mass/volume] in Serum or Plasma T4 FREE/FREE THYROXINE Lab Routine Postsurgical hypothyroidism Expected: 08/02/2025 (Approximate), Expires: 11/01/2025 [facility] Comment on above: Expected: 08/02/2025 (Approximate), Expi res: 11/01/2025 Start: 07-29-2025 Annual PCP Team Chronic Disease Visit Annual PCP Team Chronic Disease Visit [facility] Start: 07-29-2025 Anxiety Screening Anxiety Screening [facility] Start: 07-29-2025 BP Controlled (<130/80) BP Controlled (<130/80) [facility] Start: 07-29-2025 Depression Screening Depression Screening [facility] Start: 07-22-2025 DIABETES SCREEN DIABETES SCREEN [facility] Start: 06-02-2025 End: 06-02-2025 Patient encounter procedure Mammogram Comment on above: Encounter for screening mammogram for br east cancer [Z12.31] 1st attempt- annual Start: 06-01-2025 End: 06-01-2025 Patient encounter procedure OB/Gynecology Comment on above: annual Encounter for screen ing mammogram for breast cancer [Z12.31] Start: 05-27-2025 BP Controlled (<130/80) BP Controlled (<130/80) [facility] Start: 03-03-2025 Screening for malignant neoplasm of breast Mammogram Screening [facility] Start: 02-02-2025 End: 02-02-2025 ambulatory 02/02/2025 2:45 PM EDT Procedure [facility] [address] [place] [address] Wstr, Pul[facility] [address] [place] [address] CHARLES (dyspnea on exertion) [R06.09] [facility] Comment on above: CHARLES (dyspnea on exertion) [R06.09] Start: 01-31-2025 End: 01-31-2025 Patient encounter procedure 01/31/2025 4:40 PM EDT Office Visit [facility] [place] [address] [facility] [place] [address] Cindy lAegre MD [address] [place] [address] 6 month follow up [facility] [place] Comment on above: 6 month follow up Start: 01-27-2025 End: 04-28-2025 Thyrotropin [Units/volume] in Serum or Plasma THYROID STIMULATING HORMONE Lab Routine Postsurgical hypothyroidism Expected: 01/27/2025 (Approximate), Expires: 04/28/2025 Work Phone: Comment on above: Expected: 01/27/2025 (Approximate), Expi res: 04/28/2025 Start: 01-27-2025 End: 04-28-2025 Thyroxine (T4) free [Mass/volume] in Serum or Plasma T4 FREE/FREE THYROXINE Lab Routine Postsurgical hypothyroidism Expected: 01/27/2025 (Approximate), Expires: 04/28/2025 [facility] Comment on above: Expected: 01/27/2025 (Approximate), Expi res: 04/28/2025 Start: 01-20-2025 Annual PCP Team Chronic Disease Visit Annual PCP Team Chronic Disease Visit [facility] Start: 01-20-2025 Covid-19 Vaccine () Covid-19 Vaccine () [facility] Comment on above: Postponed from 06/26/2023 (Declined at t his time) Start: 07-29-2024 End: 07-29-2024 Patient encounter procedure 07/29/2024 4:40 PM EDT Office Visit [facility] [place] [address] [place] [id number] Cindy Alegre MD [address] [place] [address] 6 follow up [facility] [place] Comment on above: 6 follow up Start: 07-28-2024 End: 10-27-2024 CBC panel - Blood by Automated count COMPLETE BLOOD COUNT Lab Routine Primary hypertension Gastroesophageal reflux disease, unspecified whether esophagitis present Expected: 07/28/2024 (Approximate), Expires: 10/27/2024 [facility] Comment on above: Expected: 07/28/2024 (Approximate), Expi res: 10/27/2024 Start: 07-28-2024 End: 10-27-2024 Comprehensive metabolic 2000 panel - Serum or Plasma COMPREHENSIVE METABOLIC PANEL Lab Routine Primary hypertension Expected: 07/28/2024 (Approximate), Expires: 10/27/2024 [facility] Comment on above: Expected: 07/28/2024 (Approximate), Expi res: 10/27/2024 Start: 07-28-2024 End: 10-27-2024 Thyrotropin [Units/volume] in Serum or Plasma THYROID STIMULATING HORMONE Lab Routine Postsurgical hypothyroidism Expected: 07/28/2024 (Approximate), Expires: 10/27/2024 Work Phone: Comment on above: Expected: 07/28/2024 (Approximate), Expi res: 10/27/2024 Start: 07-28-2024 End: 10-27-2024 Thyroxine (T4) free [Mass/volume] in Serum or Plasma T4 FREE/FREE THYROXINE Lab Routine Postsurgical hypothyroidism Expected: 07/28/2024 (Approximate), Expires: 10/27/2024 [facility] Comment on above: Expected: 07/28/2024 (Approximate), Expi res: 10/27/2024 Start: 07-23-2024 Annual PCP Team Chronic Disease Visit Annual PCP Team Chronic Disease Visit [facility] Start: 07-23-2024 BP Controlled (<130/80) BP Controlled (<130/80) [facility] Start: 07-23-2024 Hepatitis C Screening Hepatitis C Screening [facility] Comment on above: Postponed from 1984 (Declined at t his time) Start: 07-23-2024 Hepatitis C screening Hepatitis C Screening [facility] Comment on above: Postponed from 1984 (Declined at t his time) Start: 07-23-2024 HIV Screening HIV Screening [facility] Comment on above: Postponed from 1984 (Declined at t his time) Start: 07-23-2024 HIV screening HIV Screening [facility] Comment on above: Postponed from 1984 (Declined at t his time) Start: 07-19-2024 End: 07-19-2024 Patient encounter procedure 07/19/2024 3:40 PM EDT Office Visit Endocrinology [address] [place] [address] Yahaira Billings MD [address] [place] [address] consult thyroid Endocrinology Comment on above: consult thyroid Start: 06-26-2024 Covid-19 Vaccine ( season) Covid-19 Vaccine ( season) [facility] Start: 06-26-2024 Influenza vaccination [facility] Start: 04-24-2024 Influenza vaccination Influenza Vaccine (#[facility]) [facility] Comment on above: Postponed from 06/26/2023 (Declined at t his time) Start: 03-17-2024 End: 03-17-2024 Patient encounter procedure 03/17/2024 10:10 AM EDT Office Visit OB/Gynecology [address] [place] [address] Alondra Walter MD [address] [place] [address] f/u in 1 year for annual [employer] exam OB/Gynecology Comment on above: f/u in 1 year for annual [employer] exam Start: 03-16-2024 BP CONTROLLED (<130/80) BP CONTROLLED (<130/80) [facility] Start: 03-03-2024 End: 03-03-2024 Patient encounter procedure 03/03/2024 7:30 AM EDT Appointment Mammogram [address] [place] [address] EH SCREENING Mammogram Comment on above: EH SCREENING Start: 01-24-2024 ANNUAL PCP TEAM CHRONIC DISEASE VISIT ANNUAL PCP TEAM CHRONIC DISEASE VISIT [facility] Start: 01-24-2024 BP CONTROLLED (<130/80) BP CONTROLLED (<130/80) [facility] Start: 10-26-2023 Behavioral Health Screening Behavioral Health Screening [facility] Start: 10-06-2023 Mammography [facility] Start: 10-06-2023 Screening for malignant neoplasm of breast Mammogram Screening [facility] Start: 07-25-2023 ANNUAL PCP TEAM CHRONIC DISEASE VISIT ANNUAL PCP TEAM CHRONIC DISEASE VISIT [facility] Start: 07-25-2023 End: 09-24-2023 Thyrotropin [Units/volume] in Serum or Plasma TSH BLD Lab Routine Postsurgical hypothyroidism Expected: 07/25/2023 (Approximate), Expires: 09/24/2023 Work Phone: Comment on above: Expected: 07/25/2023 (Approximate), Expi res: 09/24/2023 Start: 06-26-2023 Covid-19 Vaccine () Covid-19 Vaccine () [facility] Start: 06-26-2023 Influenza vaccination Influenza Vaccine (#1) [facility] Start: 04-02-2023 Anesthesia hernia repair lower abdomen nos ANESTH REPAIR OF HERNIA [facility] Start: 04-02-2023 Rpr 1st ingun hrna age 6 yrs/> reducible PRP I/MICHAELA INIT REDUC >5 YR [facility] Start: 04-02-2023 Patient discharge [facility] Start: 01-22-2023 End: 03-24-2023 Basic metabolic 2000 panel - Serum or Plasma BASIC METABOLIC PNL Lab Routine Primary hypertension Expected: 01/22/2023 (Approximate), Expires: 03/24/2023 Work Phone: Comment on above: Expected: 01/22/2023 (Approximate), Expi res: 03/24/2023 Start: 01-22-2023 End: 03-24-2023 Thyroglobulin Ab [Units/volume] in Serum or Plasma THYROGLOBULIN AB Lab Routine History of thyroid cancer Expected: 01/22/2023 (Approximate), Expires: 03/24/2023 Work Phone: Comment on above: Expected: 01/22/2023 (Approximate), Expi res: 03/24/2023 Start: 01-22-2023 End: 03-24-2023 Thyrotropin [Units/volume] in Serum or Plasma TSH BLD Lab Routine Postsurgical hypothyroidism Expected: 01/22/2023 (Approximate), Expires: 03/24/2023 Work Phone: Comment on above: Expected: 01/22/2023 (Approximate), Expi res: 03/24/2023 Start: 11-09-2022 Mammography MAMMOGRAM [facility] Start: 06-26-2022 Influenza vaccination INFLUENZA (#1) [facility] Start: 05-02-2022 COVID-19 VACCINE (4 - Booster for Pfizer series) COVID-19 VACCINE (4 - Booster for Pfizer series) [facility] Start: 05-02-2022 Covid-19 Vaccine (4 - Pfizer series) Covid-19 Vaccine (4 - Pfizer series) [facility] Start: 04-13-2022 HPV TESTING HPV TESTING [facility] Start: 04-13-2022 PAP TESTING PAP TESTING [facility] Start: 10-26-2021 DEPRESSION ASSESSMENT DEPRESSION ASSESSMENT [facility] Start: 2016 Pneumococcal Vaccine: 50+ (1 of 1 - PCV) Pneumococcal Vaccine: 50+ (1 of 1 - PCV) [facility] Start: 2016 SHINGRIX VACCINE (1 of 2) SHINGRIX VACCINE (1 of 2) [facility] Start: 2011 COLOGUARD (FIT-DNA) COLOGUARD (FIT-DNA) [facility] Start: [address] COLONOGRAPHY [facility] Start: 2011 FECAL OCCULT BLOOD FECAL OCCULT BLOOD [facility] Start: 2011 Screening for malignant neoplasm of colon [facility] Start: 2011 SIGMOIDOSCOPY SIGMOIDOSCOPY [facility] Start: 1985 Hepatitis B Vaccine (1 of 3 - 19+ 3-dose series) Hepatitis B Vaccine (1 of 3 - 19+ 3-dose series) [facility] Start: 1984 Anxiety Screening Anxiety Screening [facility] Start: 1984 BP CONTROLLED (<130/80) BP CONTROLLED (<130/80) [facility] Start: 1984 Depression Screening Depression Screening [facility] Start: 1984 HEPATITIS C SCREENING HEPATITIS C SCREENING [facility] Start: 1984 Hepatitis C screening Hepatitis C Screening [facility] Start: 1984 HIV SCREENING HIV SCREENING [facility] Start: 1984 HIV screening HIV Screening [facility] Start: 1966 HEPATITIS B (1 of 3 - 3-dose series) HEPATITIS B (1 of 3 - 3-dose series) [facility] Start: 1966 Hepatitis B Vaccine (1 of 3 - 3-dose series) Hepatitis B Vaccine (1 of 3 - 3-dose series) [facility] End: 06-26-2025 DBT Breast - bilateral screening EH SCREENING [facility] Radiology Routine Encounter for screening mammogram for breast cancer 1 Occurrences starting 05/27/2024 until 06/26/2025 Work Phone: Comment on above: 1 Occurrences starting 05/27/2024 until 06/26/2025 End: 03-25-2025 MG Breast Screening EH SCREENING Radiology Routine Encounter for screening mammogram for breast cancer 1 Occurrences starting 02/24/2024 until 03/25/2025 Work Phone: Comment on above: 1 Occurrences starting 02/24/2024 until 03/25/2025 Patient referral [facility] Work Phone: End: 03-02-2026 SPIROMETRY - BASELINE AND POST DILATOR SPIROMETRY - BASELINE AND POST DILATOR PFT Routine CHARLES (dyspnea on exertion) 1 Occurrences starting 01/31/2025 until 03/02/2026 Work Phone: Comment on above: 1 Occurrences starting 01/31/2025 until 03/02/2026 SPIROMETRY - BASELIN E AND POST DILATOR SPIROMETRY - BASELINE AND POST DILATOR PFT Routine CHARLES (dyspnea on exertion) 02/02/2025 2:47 PM EDT Work Phone: [facility] Immunizations Immunization Date Immunization Notes Care Provider [facility] 08-08-2024 influenza, injectabl e, quadrivalent, contains preservative Cindy Alegre MD Work Phone: [facility] 07-26-2022 influenza (aIIV4) vaccine, age 65+ yr, quadrivalent, PF (FLUAD QUAD) Cindy Alegre MD Work Phone: [facility] 07-26-2022 influenza virus vaccine, unspecified formulation Cindy Alegre MD Work Phone: [facility] 07-26-2020 influenza, injectabl e, quadrivalent, contains preservative Cindy Alegre MD Work Phone: [facility] 08-22-2019 influenza, seasonal, injectable Cindy Alegre MD Work Phone: [facility] 08-24-2018 influenza, seasonal, injectable Cindy Alegre MD Work Phone: [facility] 12-03-2017 tetanus toxoid, reduced diphtheria toxoid, and acellular pertussis vaccine, adsorbed Cindy Alegre MD Work Phone: [facility] 08-24-2017 influenza, seasonal, injectable Cindy Alegre MD Work Phone: [facility] 07-26-2016 influenza, seasonal, injectable Cindy Alegre MD Work Phone: [facility] 07-15-2014 influenza, seasonal, injectable Cindy Alegre MD Work Phone: [facility] 07-23-2012 influenza virus vaccine, unspecified formulation Cindy Alegre MD Work Phone: [facility] 07-26-2011 influenza virus vaccine, unspecified formulation Cindy Alegre MD Work Phone: [facility] 07-27-2007 tetanus toxoid, reduced diphtheria toxoid, and acellular pertussis vaccine, adsorbed Cindy Alegre MD Work Phone: [facility] Work Phone: Payers Date Payer Category Payer Self-pay [id number] 2025 Unknown [id number] 2021 [employer] BLUE ACCE PPO [id number] 2021 Unknown KAILA QUINTERO PPO [id number] 2021-Present [phone] [address] [place] [id number] PPO [id number] 2006 Unknown [id number] Unknown [employer] [id number] Unknown [id number] Social History Date Type Detail Facility Start: 07-25-2022 End: 07-29-2024 Tobacco smoking status NHIS Ex-smoker [facility] Start: 03-26-1983 End: 03-26-1984 History of tobacco use Current smoker [facility] Start: 03-26-1983 End: 03-26-1984 History of tobacco use Cigarette Smoker [facility] Start: 07-25-2022 End: 07-29-2024 Tobacco use and exposure Smokeless tobacco non-user [facility] Start: 07-25-2022 End: 01-31-2025 Alcohol intake Current drinker of alcohol (finding) [facility] Start: 04-13-2017 History SDOH Alcohol Comment Occasionally [facility] Start: 07-25-2022 Tobacco Comment 1-2 cigarrette daily in past last cigarette in high school [facility] Start: 1965 Sex Assigned At Not on file [facility] Start: 03-30-2023 Tobacco smoking stat [facility] Unknown if ever smoked [facility] Start: 1965 Sex Assigned At Female [facility] Start: 03-16-2023 End: 07-29-2024 History of Social function [facility] Work Phone: Start: 03-16-2023 End: 07-29-2024 Tobacco use panel [facility] Work Phone: Adult Depression Screening Assessment 0 [facility] Work Phone: Start: 04-16-2023 Gender identity Identifies as female gender (finding) [facility] Start: 04-16-2023 Sexual orientation Heterosexual (leslye kaminski) [facility] NEGATED: Highlighted row [facility] Medical Equipment Procedure Code Equipment Code Equipment Origin al Text Equipment Identifier Dates VASILIY CARBALLO FDA Start: 04-02-2023 ([id number]) Extra-gynaecolog ical surgical mesh, synthetic polymer, non-bioabsorbable [id number] FDA Start: 04-02-2023 Endoscopic manua l linear stapler [id number] FDA Start: 04-02-2023 VASILIY CARBALLO FDA Start: 04-02-2023 Goals Date Patient Goal Desired Activity /State Functional Status Date Assessment Result Facility 01-01-2015 Are you deaf, or do you have serious difficulty hearing No 01/01/2015 8:29 AM EDT Demi Cartagena MA No [facility] 01-01-2015 Are you blind, or do you have serious difficulty seeing, even when wearing glasses No 01/01/2015 8:29 AM EDT Demi Cartagena MA No [facility] 01-01-2015 Do you have serious difficulty walking or climbing stairs No 01/01/2015 8:29 AM EDT Demi Cartagena MA No [facility] 01-01-2015 Do you have difficul ty dressing or bathing No 01/01/2015 8:29 AM EDT Demi Cartagena MA No [facility] 01-01-2015 Because of a physica l, mental, or emotional condition, do you have difficulty doing errands alone such as visiting a physician's office or shopping No 01/01/2015 8:29 AM EDT Demi Cartagena MA No [facility] Mental Status Date Assessment Result Facility 04-02-2023 Cognitive function Level Of Cons ciousness Follows Commands;Drowsy [facility] Work Phone: 04-02-2023 Cognitive function Voice/Name [facility] Work Phone: 01-01-2015 Because of a physica l, mental, or emotional condition, do you have serious difficulty concentrating, remembering, or making decisions No 01/01/2015 8:29 AM EDT Demi Cartagena MA No [facility] Clinical Notes 04-30-2009 to 02-06-2025 Telephone Encounter - Deyanira Salinas MA - 02/06/2025 6:47 PM EDTTelephone Encounter - Deyanira Salinas MA - 02/06/2025 6:47 PM EDNicole Joseph Tech - 01/31/2025 5:20 PM EDT Note Date & Type Note Facility 02-06-2025 Telephone encounter Note Pt notified. [facility]red [facility] appt. Deyanira Salinas MA [facility] 02-06-2025 Miscellaneous Notes Pt notified. Transferred to [facility] to set up ENT appt. Deyanira Salinas MA Please notify patient that her spirometry test shows obstruction which appears to be from her paralyzed vocal cord. I would suggest follow up with ENT to check this out and see if something has changed with it. Cindy Alegre MD documented in this encounter [facility] 02-06-2025 Telephone encounter Note Please notify patient that her spirometry test shows obstruction which appears to be from her paralyzed vocal cord. I would suggest follow up with ENT to check this out and see if something has changed with it. Cindy Alegre MD [facility] 01-31-2025 History of Presen t illness Narrative Radiology Service Progress Note PATIENT NAME: Brice Umanzor DATE OF SERVICE: January 31, 2025 TIME: 5:49 PM PATIENT IDENTITY VERIFICATION COMPLETED USING TWO (2) IDENTIFIERS: Name and Date of confirmed by patient verbally. FALL SCREENING: Has the patient had 2 falls in the last year or 1 fall with injury or currently using an Ambulatory Assistive Device (Walker, Cane, Wheelchair, Crutches, etc.)? No PATIENT GENDER DATA: Assigned female at . status: : No status: NO. PATIENT RELEVANT IMPLANT DATA REVIEWED: Not Applicable PATIENT PRESENTS WITH AN IMPLANTABLE OR ATTACHED PRODUCTION BOW MAKER: No RADIOLOGY DEPARTMENT: General X-ray: Exam(s) Completed: Chest X-Ray PERIPHERAL IV DATA: Not applicable SIGNED BY: Lyudmila Parkinson January 31, 2025 5:49 PM documented in this encounter [facility] 01-31-2025 Note HNO ID: [id number] Author: NICOLE ANTONIO Tech Service: ? Author Type: Technologist Type: Progress Notes Filed: 01/31/2025 17:56 Note Text: Radiology Service Progress Note PATIENT NAME: Brice Umanzor DATE OF SERVICE: January 31, 2025 TIME: 5:49 PM PATIENT IDENTITY VERIFICATION COMPLETED USING TWO (2) IDENTIFIERS: Name and Date of confirmed by patient verbally. FALL SCREENING: Has the patient had 2 falls in the last year or 1 fall with injury or currently using an Ambulatory Assistive Device (Walker, Cane, Wheelchair, Crutches, etc.)? No PATIENT GENDER DATA: Assigned female at . status: : No status: NO. PATIENT RELEVANT IMPLANT DATA REVIEWED: Not Applicable PATIENT PRESENTS WITH AN IMPLANTABLE OR ATTACHED PRODUCTION BOW MAKER: No RADIOLOGY DEPARTMENT: General X-ray: Exam(s) Completed: Chest X-Ray PERIPHERAL IV DATA: Not applicable SIGNED BY: Lyudmila Parkinson January 31, 2025 5:49 PM [facility] 01-31-2025 History of Presen t illness Narrative Chief Complaint Patient presents with: F/U 6 Month HPI Brice Umanzor is a 59 year old female who presents here today for 6 month follow up. Here today for a follow up. Notes she's not done a lot due to being at work, at [employer]. States Spring time is the busiest time of year. No bowel, Gi, or urinary issues. GERD: Sx overall controlled with Prilosec 40 mg 1-2 x a day. HTN: Admits to not checking BP at home lately. Denies any chest pain. Admits to having sob and dizziness. Taking Toprol xl 50 mg daily. Thyroid: Taking Levothyroxine 150 mcg daily. Recent dosage change due to low TSH. Denies any missed dosages. Issues with breathing for the past 3 months. Reports getting really sob with doing her job, walking and carrying on a conversation. When she stops, this improves. No other symptoms with sob of chest pain, dizziness and nausea/vomiting. Reports complications from thyroid surgery years ago, it affected her vocal cord, had damage. Denies any changes in her voice that she's aware of. At times with breathing she feels she wheezes. States when she lays down at night, she will wake herself up gasping. Reports an episode of dizziness while at work, with left arm and hand numbness. States she was holding boxes when this occurred and she dropped them. She sat down on the ground and her symptoms resolved within just a couple of minutes, but then started experiencing flashers in her left eye. States that she had these for about 20 minutes. Pt reports her Eye Doctor is aware of them. Pt denies having any other symptoms occur during this episode. States she's noticed over the past several months, waking up in the middle of the night gasping. has also noted that she makes weird noises when she falls asleep. HM - Declines HIV/Hep C screening. Had Flu vaccine at work. Declines Covid vaccine. Declines Pneumonia vaccine. Past medical history, appointments, medications, allergies reviewed. 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 Repaired at [facility] by Dr. Carlos Vizcaino. THYROIDECTOMY TOTAL/COMPLETE 09/2006 Family History FAMILY HISTORY Problem Relation Age of Onset Heart Mother marfans syndrome Hypertension Mother other (Marfan's syndrome) Mother Heart Father Kidney Disease Father other (Marfan's) Sister other (Marfan's syndrome) Brother Colon Cancer Maternal Grandmother 70 other (Marfan's syndrome) Maternal Grandmother other (Marfan's syndrome) Maternal Uncle Patient Allergies ALLERGIES No Known Allergies Current Medications Current Outpatient Medications on File Prior to Visit Medication Sig levothyroxine (LEVOXYL) 175 mcg tablet Take 1 tablet by mouth once daily. Take on empty stomach. For Thyroid. omeprazole (PRILOSEC) 40 mg capsule Take one capsule 1-2 times a day metoprolol succinate ER (TOPROL XL) 50 mg 24 hr tablet Take 1 tablet by mouth once daily. Cholecalciferol, Vitamin D3, 50 mcg (2,000 unit) cap Take 1 capsule by mouth once daily. No current facility-administered medications on file prior to visit. Social History Social History Tobacco Use Smoking status: Former Current packs/day: 0.00 Types: Cigarettes Start date: 03/26/1983 Quit date: 03/26/1984 Years since quittin.8 Smokeless tobacco: Never Tobacco comments: 1-2 cigarrette daily in past last cigarette in high school Vaping Use Vaping status: Never Used Substance Use Topics Alcohol use: Yes Comment: Occasionally Drug use: No EXAM: BP 134/82 (BP Position: Sitting) Pulse 80 Resp 16 Wt 73.8 kg (162 lb 11.2 oz) LMP 08/27/2019 (LMP Unknown) SpO2 97% BMI 26.87 kg/m General Appearance: Well appearing, alert, in no acute distress, well-hydrated, well nourished.. Lungs: Lungs clear to auscultation. Slight wheezing, sounds like stridor diffusely Heart: RRR without murmur, gallop, or rubs. No ectopy. Health Maintenance List Hepatitis C Screening Never done HIV Screening Never done Hepatitis B Vaccine(1 of 3 - 19+ 3-dose series) Never done Shingrix Vaccine(1 of 2) Never done Pneumococcal Vaccine: 50+(1 of 1 - PCV) Never done Influenza Vaccine(1) due on 06/26/2024 Covid-19 Vaccine( season) due on 06/26/2024 Mammogram Screening due on 03/03/2025 Annual PCP Team Chronic Disease Visit due on 07/29/2025 Depression Screening due on 07/29/2025 Anxiety Screening due on 07/29/2025 BP Controlled (<130/80) due on 07/29/2025 Lipid Screening due on 04/08/2026 Colorectal Cancer Screening due on 01/19/2027 Diabetes Screening due on 07/28/2027 DTaP,Tdap,Td Vaccine(3 - Td or Tdap) due on 12/03/2027 Cervical Cancer Screening due on 03/16/2028 Data reviewed Appointment on 01/24/2025 Component Date Value TSH 01/24/2025 0.005 (L) Free T4 01/24/2025 2.0 (H) ASSESSMENT/PLAN: 1. Essential hypertension - ICD9: 401.9, ICD10: I10 (primary diagnosis) - Elevated - Continue current medications - Recommend home blood pressure monitoring, to bring results to next visit - Encouraged sodium restriction, DASH or Mediterranean diet - Recommend regular aerobic exercise 2. Gastroesophageal reflux disease, unspecified whether esophagitis present - ICD9: 530.81, ICD10: K21.9 - Continue current medication regimen. 3. Postsurgical hypothyroidism - ICD9: 244.0, ICD10: E89.0 - Instructed patient on importance of taking on an empty stomach either first thing in the morning or at bedtime. - check TSH for next visit. 4. Marfan's syndrome (HCC) - ICD9: 759.82, ICD10: Q87.40 - Continue current medication regimen. 5. CHARLES (dyspnea on exertion) - ICD9: 786.09, ICD10: R06.09 - Check XR and complete PFT testing. - XR CHEST 2V FRONTAL/LAT - SPIROMETRY - BASELINE AND POST DILATOR 6. Wheezing - ICD9: 786.07, ICD10: R06.2 - Will check chest XR today - Check PFT 6 mo f/u with labs. Complete tests as ordered XR and PFT. Will call with results. I agree with the Chief Complaint, ROS, and Past Histories independently gathered by the clinical desktop support engineer and the remaining scribed note accurately describes my personal service to the patient. Medical Decision Making: Problems: Moderate: 2+ stable chronic illnesses and New problem with uncertain prognosis Data: Unique test(s) ordered: 2 Risk: Moderate: Drug management Medical Decision Making Level: 4 - Moderate Cindy Alegre MD The documentation for this note was completed by Xin Arzate MA acting as scribe for Cindy Alegre MD. January 31, 2025 4:30 PM. Xin Arzate MA documented in this encounter [facility] 01-31-2025 Note HNO ID: [id number] Author: CINDY ALEGRE MD Service: ? Author Type: Physician Type: Progress Notes Filed: 01/31/2025 17:06 Note Text: Chief Complaint Patient presents with: F/U 6 Month HPI Brice Umanzor is a 59 year old female who presents here today for 6 month follow up. Here today for a follow up. Notes she's not done a lot due to being at work, at [employer]. States Spring time is the busiest time of year. No bowel, Gi, or urinary issues. GERD: Sx overall controlled with Prilosec 40 mg 1-2 x a day. HTN: Admits to not checking BP at home lately. Denies any chest pain. Admits to having sob and dizziness. Taking Toprol xl 50 mg daily. Thyroid: Taking Levothyroxine 150 mcg daily. Recent dosage change due to low TSH. Denies any missed dosages. Issues with breathing for the past 3 months. Reports getting really sob with doing her job, walking and carrying on a conversation. When she stops, this improves. No other symptoms with sob of chest pain, dizziness and nausea/vomiting. Reports complications from thyroid surgery years ago, it affected her vocal cord, had damage. Denies any changes in her voice that she's aware of. At times with breathing she feels she wheezes. States when she lays down at night, she will wake herself up gasping. Reports an episode of dizziness while at work, with left arm and hand numbness. States she was holding boxes when this occurred and she dropped them. She sat down on the ground and her symptoms resolved within just a couple of minutes, but then started experiencing flashers in her left eye. States that she had these for about 20 minutes. Pt reports her Eye Doctor is aware of them. Pt denies having any other symptoms occur during this episode. States she's noticed over the past several months, waking up in the middle of the night gasping. has also noted that she makes weird noises when she falls asleep. HM - Declines HIV/Hep C screening. Had Flu vaccine at work. Declines Covid vaccine. Declines Pneumonia vaccine. Past medical history, appointments, medications, allergies reviewed. 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 Repaired at [facility] by Dr. Carlos Vizcaino. THYROIDECTOMY TOTAL/COMPLETE 09/2006 Family History FAMILY HISTORY Problem Relation Age of Onset Heart Mother marfans syndrome Hypertension Mother other (Marfan's syndrome) Mother Heart Father Kidney Disease Father other (Marfan's) Sister other (Marfan's syndrome) Brother Colon Cancer Maternal Grandmother 70 other (Marfan's syndrome) Maternal Grandmother other (Marfan's syndrome) Maternal Uncle Patient Allergies ALLERGIES No Known Allergies Current Medications Current Outpatient Medications on File Prior to Visit Medication Sig levothyroxine (LEVOXYL) 175 mcg tablet Take 1 tablet by mouth once daily. Take on empty stomach. For Thyroid. omeprazole (PRILOSEC) 40 mg capsule Take one capsule 1-2 times a day metoprolol succinate ER (TOPROL XL) 50 mg 24 hr tablet Take 1 tablet by mouth once daily. Cholecalciferol, Vitamin D3, 50 mcg (2,000 unit) cap Take 1 capsule by mouth once daily. No current facility-administered medications on file prior to visit. Social History Social History Tobacco Use Smoking status: Former Current packs/day: 0.00 Types: Cigarettes Start date: 03/26/1983 Quit date: 03/26/1984 Years since quittin.8 Smokeless tobacco: Never Tobacco comments: 1-2 cigarrette daily in past last cigarette in high school Vaping Use Vaping status: Never Used Substance Use Topics Alcohol use: Yes Comment: Occasionally Drug use: No EXAM: BP 134/82 (BP Position: Sitting) Pulse 80 Resp 16 Wt 73.8 kg (162 lb 11.2 oz) LMP 08/27/2019 (LMP Unknown) SpO2 97% BMI 26.87 kg/m? General Appearance: Well appearing, alert, in no acute distress, well-hydrated, well nourished.. Lungs: Lungs clear to auscultation. Slight wheezing, sounds like stridor diffusely Heart: RRR without murmur, gallop, or rubs. No ectopy. Health Maintenance List Hepatitis C Screening Never done HIV Screening Never done Hepatitis B Vaccine(1 of 3 - 19+ 3-dose (more content not included)... [facility] 01-26-2025 Telephone encounter Note Call to pt, spoke with spouse who stated he was to take message regarding thyroid medication to update her due to being at work. Notified spouse of message below from PCP. 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 Xin Arzate MA [facility] 01-26-2025 Miscellaneous Notes Call to pt, spoke with spouse who stated he was to take message regarding thyroid medication to update her due to being at work. Notified spouse of message below from PCP. 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 Xin Arzate MA Her lab results do shows that the thyroid dose is too high now. have ordered the 150 mcg thyroid dose, so go back to this Cindy Alegre MD Patient reports she has 3 tablets left of her levothyroxine 175 mcg medication and can get one more refill. Patient had recent thyroid labs completed on 01/24/25. Patient asking if PCP would like patient to remain on same dose of medication, or change it? She states if PCP is changing the order, she will not get her 175 mcg refilled and will wait for new script to be sent to her pharmacy. Please call patient with levothyroxine dosage she should take. Mabel Brar RN . documented in this encounter [facility] 01-26-2025 Telephone encounter Note Her lab results do shows that the thyroid dose is too high now. have ordered the 150 mcg thyroid dose, so go back to this Cindy Alegre MD [facility] 01-25-2025 Telephone encounter Note Patient reports she has 3 tablets left of her levothyroxine 175 mcg medication and can get one more refill. Patient had recent thyroid labs completed on 01/24/25. Patient asking if PCP would like patient to remain on same dose of medication, or change it? She states if PCP is changing the order, she will not get her 175 mcg refilled and will wait for new script to be sent to her pharmacy. Please call patient with levothyroxine dosage she should take. Mabel Brar RN . [facility] 09-23-2024 Telephone encounter Note The message I received said that she wanted to take her dose just one pill daily, every day. Using the 175 mcg dose once daily would equal the same weekly dose as she is currently taking by taking two of the 150 mcg pills one day, and one pill the rest of the days. By going to the 175 mcg dose she can just take one pill every day. Cindy Alegre MD [facility] 09-23-2024 Miscellaneous Notes The message I received said that she wanted to take her dose just one pill daily, every day. Using the 175 mcg dose once daily would equal the same weekly dose as she is currently taking by taking two of the 150 mcg pills one day, and one pill the rest of the days. By going to the 175 mcg dose she can just take one pill every day. Cindy Alegre MD Patient calling back asking why PCP changed her Levothyroxine dose to 175 mcg daily? She said she did not do any lab work in past few days. Please advise Pt notified. She will see how the chapped lips do with switching the dosages. Deyanira Salinas MA OK to go to Synthroid 175 mcg daily as ordered Cindy Alegre MD Pt. needs refill on Synthroid 150 mcg taking 2 and then 1 every other day. She would like Rx mcg changed so she can just take it daily. She would like to start with [facility] supply [facility]. Also she has chapped sore lips since last synthroid dosage change. Call back with information. documented in this encounter [facility] 09-23-2024 Telephone encounter Note Patient calling back asking why PCP changed her Levothyroxine dose to 175 mcg daily? She said she did not do any lab work in past few days. Please advise [facility] 09-23-2024 Telephone encounter Note Pt notified. She will see how the chapped lips do with switching the dosages. Deyanira Salinas MA [facility] 09-23-2024 Telephone encounter Note OK to go to Synthroid 175 mcg daily as ordered Cindy Alegre MD [facility] 09-23-2024 Telephone encounter Note Pt. needs refill on Synthroid 150 mcg taking 2 and then 1 every other day. She would like Rx mcg changed so she can just take it daily. She would like to start with 30 [facility] supply [facility]. Also she has chapped sore lips since last synthroid dosage change. Call back with information. [facility] Work Phone: 08-09-2024 Telephone encounter Note Pt notified of results & message from provider. Pt voiced understanding. Mary Aparicio LPN [facility] 08-09-2024 Miscellaneous Notes Pt notified of results & message from provider. Pt voiced understanding. Mary Aparicio LPN Left message for patient to return call Please notify patient that her TSH is slightly high, so I would suggest that on one day a week she take 2 of her thyroid pills, and continue with one pill every other day of the week. Recheck in 6 months as planned. Cindy Alegre MD documented in this encounter [facility] 08-09-2024 Telephone encounter Note Left message for patient to return call [facility] 08-08-2024 Telephone encounter Note Please notify patient that her TSH is slightly high, so I would suggest that on one day a week she take 2 of her thyroid pills, and continue with one pill every other day of the week. Recheck in 6 months as planned. Cindy Alegre MD [facility] 07-29-2024 History of Presen t illness Narrative Chief Complaint Patient presents with: 6 Month Exam HPI Brice Umanzor is a 58 year old female who presents here today for 6 month follow up. Her son is 38 years old and recently dx with MS so she has been caring for him a lot now that he is in a wheelchair. He lives with her. She is still working. Works at [employer] where things have been busy, not doing any OT at this time. No bowel, Gi, or urinary issues. GERD: Prilosec increased to 40 mg 1-2 x daily. Doing well on this dose. She states occ she gets an episode where she has sx, maybe once every few months. Unable to correlate what triggers it. Thyroid: Stable on current regimen of Levothyroxine 150 mcg once daily. No missed dosages. HTN: checking BP occ at home, but admits that she hasn't been checking lately. Taking Toprol xl 50 mg once daily. No chest pains, dizziness, or SOB. Past medical history, appointments, medications, allergies reviewed. 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 Repaired at [facility] by Dr. Carlos Vizcaino. THYROIDECTOMY TOTAL/COMPLETE 09/2006 Family History FAMILY HISTORY Problem Relation Age of Onset Heart Mother marfans syndrome Hypertension Mother other (Marfan's syndrome) Mother Heart Father Kidney Disease Father other (Marfan's) Sister other (Marfan's syndrome) Brother Colon Cancer Maternal Grandmother 70 other (Marfan's syndrome) Maternal Grandmother other (Marfan's syndrome) Maternal Uncle Patient Allergies ALLERGIES No Known Allergies Current Medications Current Outpatient Medications on File Prior to Visit Medication Sig levothyroxine (LEVOXYL) 150 mcg tablet Take 1 tablet by mouth once daily. Take on empty stomach. For Thyroid. metoprolol succinate ER (TOPROL XL) 50 mg 24 hr tablet Take 1 tablet by mouth once daily. omeprazole (PRILOSEC) 40 mg capsule Take one capsule 1-2 times a day Cholecalciferol, Vitamin D3, 50 mcg (2,000 unit) cap Take 1 capsule by mouth once daily. No current facility-administered medications on file prior to visit. Social History Social History Tobacco Use Smoking status: Former Current packs/day: 0.00 Types: Cigarettes Start date: 03/26/1983 Quit date: 03/26/1984 Years since quittin.3 Smokeless tobacco: Never Tobacco comments: 1-2 cigarrette daily in past last cigarette in high school Vaping Use Vaping status: Never Used Substance Use Topics Alcohol use: Yes Comment: Occasionally Drug use: No EXAM: BP 124/78 Pulse 74 Resp 16 Wt 76.5 kg (168 lb 10.4 oz) LMP 08/27/2019 (LMP Unknown) BMI 27.85 kg/m General Appearance: Well appearing, alert, in no acute distress, well-hydrated, well nourished.. Neck: Supple, no adenopathy; thyroid symmetric, normal size,. Lungs: Lungs clear to auscultation. No wheezing, rhonchi, rales.. Heart: RRR without murmur, gallop, or rubs. No ectopy. Health Maintenance List Depression Screening Never done Anxiety Screening Never done Hepatitis C Screening Never done HIV Screening Never done Hepatitis B Vaccine(1 of 3 - 19+ 3-dose series) Never done Shingrix Vaccine(1 of 2) Never done Influenza Vaccine(1) due on 06/26/2024 Covid-19 Vaccine() due on 06/26/2024 Annual PCP Team Chronic Disease Visit due on 01/20/2025 Mammogram Screening due on 03/03/2025 BP Controlled (<130/80) due on 05/27/2025 Lipid Screening due on 04/08/2026 Colorectal Cancer Screening due on 01/19/2027 Diabetes Screening due on 07/28/2027 DTaP,Tdap,Td Vaccine(3 - Td or Tdap) due on 12/03/2027 Cervical Cancer Screening due on 03/16/2028 Data reviewed Appointment on 07/28/2024 Component Date Value Protein, Total 07/28/2024 7.1 Albumin 07/28/2024 4.1 Calcium, Total 07/28/2024 8.4 (L) Bilirubin, Total 07/28/2024 0.2 Alkaline Phosphatase 07/28/2024 87 AST 07/28/2024 22 ALT 07/28/2024 17 Glucose 07/28/2024 90 BUN 07/28/2024 16 Creatinine 07/28/2024 0.87 Sodium 07/28/2024 139 Potassium 07/28/2024 4.1 Chloride 07/28/2024 101 CO2 07/28/2024 27 Anion Gap 07/28/2024 11 Estimated Glomerular Mert* 07/28/2024 78 WBC 07/28/2024 6.01 RBC 07/28/2024 4.10 Hemoglobin 07/28/2024 12.4 Hematocrit 07/28/2024 37.5 MCV 07/28/2024 91.5 MCH 07/28/2024 30.2 MCHC 07/28/2024 33.1 RDW-CV 07/28/2024 12.6 Platelet Count 07/28/2024 264 MPV 07/28/2024 9.1 Absolute nRBC 07/28/2024 <0.01 ASSESSMENT/PLAN: 1. Primary hypertension - ICD9: 401.9, ICD10: I10 (primary diagnosis) - Controlled - Continue current medications - Recommend home blood pressure monitoring, to bring results to next visit - Encouraged sodium restriction, DASH or Mediterranean diet - Recommend regular aerobic exercise - Discussed need for and benefit of weight loss. BMI 27.85 kg/(m^2) 2. Screening for depression - ICD9: V79.0, ICD10: Z13.31 - DEPRESSION SCREENING 3. Encounter for screening examination for other mental health and behavioral disorders - ICD9: V79.8, ICD10: Z13.39 - ANXIETY SCREENING 4. Gastroesophageal reflux disease, unspecified whether esophagitis present - ICD9: 530.81, ICD10: K21.9 - stable Continue current medications. 5. Postsurgical hypothyroidism - ICD9: 244.0, ICD10: E89.0 - Instructed patient on importance of taking on an empty stomach either first thing in the morning or at bedtime. Continue current medications. Follow up in 6 months with labs prior. I agree with the Chief Complaint, ROS, and Past Histories independently gathered by the clinical desktop support engineer and the remaining scribed note accurately describes my personal service to the patient. Medical Decision Making: Problems: Moderate: 2+ stable chronic illnesses Data: Unique test result(s) reviewed: 3+ Unique test(s) ordered: 1 Risk: Moderate: Drug management Medical Decision Making Level: 4 - Moderate Cindy Alegre MD The documentation for this note was completed by Deyanira Salinas MA acting as scribe for Cindy Alegre MD. July 29, 2024 4:44 PM. Deyanira Salinas MA documented in this encounter [facility] 07-29-2024 Note HNO ID: [id number] Author: CINDY ALEGRE MD Service: ? Author Type: Physician Type: Progress Notes Filed: 07/29/2024 17:24 Note Text: Chief Complaint Patient presents with: 6 Month Exam HPI Brice Umanzor is a 58 year old female who presents here today for 6 month follow up. Her son is 38 years old and recently dx with MS so she has been caring for him a lot now that he is in a wheelchair. He lives with her. She is still working. Works at [employer] where things have been busy, not doing any OT at this time. No bowel, Gi, or urinary issues. GERD: Prilosec increased to 40 mg 1-2 x daily. Doing well on this dose. She states occ she gets an episode where she has sx, maybe once every few months. Unable to correlate what triggers it. Thyroid: Stable on current regimen of Levothyroxine 150 mcg once daily. No missed dosages. HTN: checking BP occ at home, but admits that she hasn't been checking lately. Taking Toprol xl 50 mg once daily. No chest pains, dizziness, or SOB. Past medical history, appointments, medications, allergies reviewed. 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 Repaired at [facility] by Dr. Carlos Vizcaino. THYROIDECTOMY TOTAL/COMPLETE 09/2006 Family History FAMILY HISTORY Problem Relation Age of Onset Heart Mother marfans syndrome Hypertension Mother other (Marfan's syndrome) Mother Heart Father Kidney Disease Father other (Marfan's) Sister other (Marfan's syndrome) Brother Colon Cancer Maternal Grandmother 70 other (Marfan's syndrome) Maternal Grandmother other (Marfan's syndrome) Maternal Uncle Patient Allergies ALLERGIES No Known Allergies Current Medications Current Outpatient Medications on File Prior to Visit Medication Sig levothyroxine (LEVOXYL) 150 mcg tablet Take 1 tablet by mouth once daily. Take on empty stomach. For Thyroid. metoprolol succinate ER (TOPROL XL) 50 mg 24 hr tablet Take 1 tablet by mouth once daily. omeprazole (PRILOSEC) 40 mg capsule Take one capsule 1-2 times a day Cholecalciferol, Vitamin D3, 50 mcg (2,000 unit) cap Take 1 capsule by mouth once daily. No current facility-administered medications on file prior to visit. Social History Social History Tobacco Use Smoking status: Former Current packs/day: 0.00 Types: Cigarettes Start date: 03/26/1983 Quit date: 03/26/1984 Years since quittin.3 Smokeless tobacco: Never Tobacco comments: 1-2 cigarrette daily in past last cigarette in high school Vaping Use Vaping status: Never Used Substance Use Topics Alcohol use: Yes Comment: Occasionally Drug use: No EXAM: BP 124/78 Pulse 74 Resp 16 Wt 76.5 kg (168 lb 10.4 oz) LMP 08/27/2019 (LMP Unknown) BMI 27.85 kg/m? General Appearance: Well appearing, alert, in no acute distress, well-hydrated, well nourished.. Neck: Supple, no adenopathy; thyroid symmetric, normal size,. Lungs: Lungs clear to auscultation. No wheezing, rhonchi, rales.. Heart: RRR without murmur, gallop, or rubs. No ectopy. Health Maintenance List Depression Screening Never done Anxiety Screening Never done Hepatitis C Screening Never done HIV Screening Never done Hepatitis B Vaccine(1 of 3 - 19+ 3-dose series) Never done Shingrix Vaccine(1 of 2) Never done Influenza Vaccine(1) due on 06/26/2024 Covid-19 Vaccine( season) due on 06/26/2024 Annual PCP Team Chronic Disease Visit due on 01/20/2025 Mammogram Screening due on 03/03/2025 BP Controlled (<130/80) due on 05/27/2025 Lipid Screening due on 04/08/2026 Colorectal Cancer Screening due on 01/19/2027 Diabetes Screening due on 07/28/2027 DTaP,Tdap,Td Vaccine(3 - Td or Tdap) due on 12/03/2027 Cervical Cancer Screening due on 03/16/2028 Data reviewed Appointment on 07/28/2024 Component Date Value Protein, Total 07/28/2024 7.1 Albumin 07/28/2024 4.1 Calcium, Total 07/28/2024 8.4 (L) Bilirubin, Total 07/28/2024 0.2 Alkaline Phosphatase 07/28/2024 87 AST 07/28/2024 22 ALT 07/28/2024 17 Glucose 07/28/2024 90 BUN 07/28/2024 16 Creatinine 07/28/2024 0.87 Sodium 07/28/2024 139 Potassium 07/28/2024 4.1 Chloride 07/28/2024 101 CO2 07/28/2024 (more content not included)... [facility] 07-28-2024 Telephone encounter Note TC to pt. Left a detailed message on a secure line with updates. Eun Mejia LPN [facility] 07-28-2024 Miscellaneous Notes TC to pt. Left a detailed message on a secure line with updates. Eun Mejia LPN Labs ordered; if she is not able to get them done before tomorrow that is OK Cindy Alegre MD Pt has a 6 month FU 07/29/24 & is asking if she needs any labs prior to that appt? Mary Aparicio LPN documented in this encounter [facility] 07-28-2024 Telephone encounter Note Labs ordered; if she is not able to get them done before tomorrow that is OK Cindy Alegre MD [facility] 07-27-2024 Telephone encounter Note Pt has a 6 month FU 07/29/24 & is asking if she needs any labs prior to that appt? Mary Aparicio LPN [facility] 05-27-2024 Instructions Alondra Walter MD - 05/27/2024 9:25 AM EDT Calcium and Vitamin D Supplementation (from the National Institutes of Health Office of Dietary Supplements 2011) Calcium is required by the body for blood vessel, muscle, hormone and nerve functioning. Most of the body's calcium is stored in the bones and teeth where it supports structure and function. Bone is continuously broken down and reformed. When bone breakdown exceeds formation, especially in postmenopausal women, bone loss can increase the risk of osteoporosis and fractures. In addition to low calcium intake, women who smoke, have a family history of osteoporosis, are thin, or , or who take certain medications such as cancer chemotherapy, seizure mediations and steroids are at increased risk of osteoporosis. The calcium requirements in women change with age. The National Institutes of Health (NIH) recommends: 1000mg elemental calcium for premenopausal women age 19-50 1200mg elemental calcium for postmenopausal women and all women over 50 Milk, yogurt, and cheese are rich natural sources of calcium and are the major food contributors in the [place]. For example, 8oz of milk (whole, lowfat or skim) contains about 300mg calcium, 8oz of yogurt contains 415mg. Nondairy sources include salmon and sardines and vegetables, such as [place] cabbage, kale, and broccoli. Foods fortified with calcium include many fruit juices, tofu and cereals. For more food calcium content information, visit http://ods.od.nih.gov/factsheets /calcium. Calcium supplements come in several different forms. Remember that the recommendations are for millgrams (mg) of elemental calcium which may be less than the total weight of the supplement. The amount of elemental calcium is required to be printed on the label. Calcium carbonate is the least expensive form. It must be taken on a full stomach to be properly absorbed. Some patients may experience gas or constipation. Calcium phosphate and calcium citrate may be taken either with or without food and tend to have less side effects but are generally more expensive. Because of its ability to neutralize stomach acid, calcium carbonate is found in some [id number] antacid products, such as Tums and Rolaids . Depending on its strength, each chewable pill or softchew provides 200 to 400 mg of elemental calcium. The percentage of calcium absorbed depends on the total amount of elemental calcium consumed at one time. Absorption is highest in doses <500mg. So a woman who takes 1,000mg/day of calcium from supplements should split the dose and take 500mg at two separate times during the day. Too much calcium can cause kidney stones, constipation, difficulty absorbing other nutrients and calcium buildup in blood vessels. Women under 50 should not exceed 2500mg/day (2000mg/day for women over 50) of calcium from food and supplements. Excessive alcohol and caffeine intake can inhibit absorption of calcium. Calcium can reduce the absorption of some medications if taken at the same time of day (bisphosphonates, thyroid medication, Phenytoin and other seizure medications, some antibiotics and iron supplements). Vitamin D promotes calcium absorption in the gut and maintains adequate blood levels of calcium and phosphate for normal bone growth and bone remodeling. Vitamin D also helps regulate cell growth as well as nerve, muscle and immune system function. Vitamin D is produced in the skin as a result of ultraviolet sunlight rays and must be altered in the liver and kidney to become its active form. Recommended intake according to the National Institutes of Health is 600 International Units (IU) for girls and women ages 1-70 and 800 IU for women over 70. Very few foods in nature contain vitamin D. The flesh of fatty fish (such as salmon, tuna, and mackerel) and fish liver oils are among the best sources. Small amounts of vitamin D are found in beef liver, cheese, mushrooms and egg yolks. Most people meet at least some of their vitamin D needs through exposure to sunlight. Season, time of day, length of day, cloud cover, smog, skin melanin content, and sunscreen are among the factors that affect UV radiation exposure and vitamin D synthesis. Despite the importance of the sun for vitamin D synthesis, it is prudent to limit exposure of skin to sunlight and avoid tanning beds. UV radiation is a carcinogen responsible for most of the estimated 1.5 million skin cancers that occur annually in the [place]. Lifetime cumulative UV damage to skin is also responsible for some age-associated dryness and other cosmetic changes. In supplements and fortified foods, vitamin D is available in two forms, D2 (ergocalciferol) and D3 (cholecalciferol). The two are equivalent at normal supplement doses. For women who require high supplement doses because of vitamin D deficiency, D3 may work better to raise blood levels. Some medications can prevent proper absorption of Vitamin D. These include laxatives, corticosteroids like prednisone, the seizure drugs phenobarbital and phenytoin, the weight-loss drug orlistat ( Xenical and AlliTM) and the cholesterol-lowering drug cholestyramine (Questran , LoCholest , and Prevalite ). Talk to your doctor about adjusting your recommended daily vitamin D dosage if you take these medications. You should not exceed 4000 mg of vitamin D supplementation daily unless specifically prescribed by your doctor. documented in this encounter [facility] 05-27-2024 Note HNO ID: [id number] Author: ALONDRA WALTER MD Service: ? Author Type: Physician Type: Progress Notes Filed: 05/27/2024 09:25 Note Text: Food Porter offered: Patient declines. Sandoval is a 58 year old who presents for an annual gynecologic exam without complaints. Postmenopausal: Yes HRT use: No. 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: Sexual Activity: Not Currently; Male Contraception: No contraception data on record PAST MEDICAL HISTORY No date: Esophageal reflux No date: Hypertension No date: Marfan syndrome Comment: Eyes, no heart involvement 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 Comment: Thyroid cancer No date: [facility] - PAST MEDICAL HISTORY OF Comment: Cervical strain No date: 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 Repaired at [facility] by Dr. Carlos Vizcaino. 09/2006: THYROIDECTOMY TOTAL/COMPLETE FAMILY HISTORY Problem Relation Age of Onset Heart Mother marfans syndrome Hypertension Mother other (Marfan's syndrome) Mother Heart Father Kidney Disease Father other (Marfan's) Sister other (Marfan's syndrome) Brother Colon Cancer Maternal Grandmother 70 other (Marfan's syndrome) Maternal Grandmother other (Marfan's syndrome) Maternal Uncle SOCIAL HISTORY Social History Tobacco Use Smoking status: Former Years: 1 Types: Cigarettes Quit date: 03/26/1984 Years since quittin.1 Smokeless tobacco: Never Tobacco comments: 1-2 cigarrette daily in past last cigarette in high school Vaping Use Vaping Use: Never used Substance Use Topics Alcohol use: Yes Comment: Occasionally Drug use: No REVIEW OF SYSTEMS Abdomen: No abdominal pain, nausea, vomiting, diarrhea, or constipation. No bloating, early satiety, indigestion, or increased flatulence. Bladder: No dysuria, gross hematuria, urinary frequency, urinary urgency, or incontinence Breast: No breast lumps, nipple d/c, overlying skin changes, redness or skin retraction Allergies and current medication updated:Yes EXAM: BP 120/76 Ht 5' 5.25 (1.66m) Wt 163 lb 6.4 oz (74.1kg) LMP 08/27/2019 BMI 26.99 kg/(m2). GENERAL: pleasant, female in no apparent distress HEENT: Normocephalic and atraumatic NECK: full range of motion DERMATOLOGY: Normal, without lesions, non-icteric, and non-hirsute BREAST: soft, non-tender, symmetric, no dominant mass, normal nipple-areolar complex, no lymphadenopathy, and no nipple discharge CHEST: Normal inspiratory effort ABDOMEN: soft, non-tender, and no masses PELVIC: external genitalia normal, normal Bartholin's glands, urethra, Breese's glands, no vulvar lesions, no cervical lesions, good vaginal support, physiologic discharge present, normal appearing perineal body and perianal region, vaginal atrophy noted BIMANUAL: uterus normal size, shape and consistency, no adnexal masses, and non-tender RECTOVAGINAL: deferred. NEURO: exam grossly non-focal EXTREMITIES: normal ASSESSMENT/PLAN: 1) Health maintenance: Pap/HPV up to date. Mammogram up to date Nutrition, exercise and routine health maintenance exams reviewed. Colon cancer screening: up to date with screening TSH/lipids/glucose: followed by PCP 2) Follow up one year or sooner as needed Alondra Walter DO [facility] 05-27-2024 History of Presen t illness Narrative Food Porter offered: Patient declines. Brice is a 58 year old who presents for an annual gynecologic exam without complaints. Postmenopausal: Yes HRT use: No. 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: Sexual Activity: Not Currently; Male Contraception: No contraception data on record PAST MEDICAL HISTORY No date: Esophageal reflux No date: Hypertension No date: Marfan syndrome Comment: Eyes, no heart involvement 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 Comment: Thyroid cancer No date: [facility] - PAST MEDICAL HISTORY OF Comment: Cervical strain No date: 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 Repaired at [facility] by Dr. Carlos Vizcaino. 09/2006: THYROIDECTOMY TOTAL/COMPLETE FAMILY HISTORY Problem Relation Age of Onset Heart Mother marfans syndrome Hypertension Mother other (Marfan's syndrome) Mother Heart Father Kidney Disease Father other (Marfan's) Sister other (Marfan's syndrome) Brother Colon Cancer Maternal Grandmother 70 other (Marfan's syndrome) Maternal Grandmother other (Marfan's syndrome) Maternal Uncle SOCIAL HISTORY Social History Tobacco Use Smoking status: Former Years: 1 Types: Cigarettes Quit date: 03/26/1984 Years since quittin.1 Smokeless tobacco: Never Tobacco comments: 1-2 cigarrette daily in past last cigarette in high school Vaping Use Vaping Use: Never used Substance Use Topics Alcohol use: Yes Comment: Occasionally Drug use: No REVIEW OF SYSTEMS Abdomen: No abdominal pain, nausea, vomiting, diarrhea, or constipation. No bloating, early satiety, indigestion, or increased flatulence. Bladder: No dysuria, gross hematuria, urinary frequency, urinary urgency, or incontinence Breast: No breast lumps, nipple d/c, overlying skin changes, redness or skin retraction Allergies and current medication updated:Yes EXAM: BP 120/76 Ht 5' 5.25 (1.66m) Wt 163 lb 6.4 oz (74.1kg) LMP 08/27/2019 BMI 26.99 kg/(m^2). GENERAL: pleasant, female in no apparent distress HEENT: Normocephalic and atraumatic NECK: full range of motion DERMATOLOGY: Normal, without lesions, non-icteric, and non-hirsute BREAST: soft, non-tender, symmetric, no dominant mass, normal nipple-areolar complex, no lymphadenopathy, and no nipple discharge CHEST: Normal inspiratory effort ABDOMEN: soft, non-tender, and no masses PELVIC: external genitalia normal, normal Bartholin's glands, urethra, Breese's glands, no vulvar lesions, no cervical lesions, good vaginal support, physiologic discharge present, normal appearing perineal body and perianal region, vaginal atrophy noted BIMANUAL: uterus normal size, shape and consistency, no adnexal masses, and non-tender RECTOVAGINAL: deferred. NEURO: exam grossly non-focal EXTREMITIES: normal ASSESSMENT/PLAN: 1) Health maintenance: Pap/HPV up to date. Mammogram up to date Nutrition, exercise and routine health maintenance exams reviewed. Colon cancer screening: up to date with screening TSH/lipids/glucose: followed by PCP 2) Follow up one year or sooner as needed Alondra Walter DO documented in this encounter [facility] 03-03-2024 History of Presen t illness Narrative Radiology Service Progress Note PATIENT NAME: Brice Umanzor DATE OF SERVICE: March 03, 2024 TIME: 7:51 AM PATIENT IDENTITY VERIFICATION COMPLETED USING TWO (2) IDENTIFIERS: Name and Date of confirmed by patient verbally. FALL SCREENING: Has the patient had 2 falls in the last year or 1 fall with injury or currently using an Ambulatory Assistive Device (Walker, Cane, Wheelchair, Crutches, etc.)? No PATIENT GENDER DATA: Female. status: : No status: NO. PATIENT RELEVANT IMPLANT DATA REVIEWED: Not Applicable PATIENT PRESENTS WITH AN IMPLANTABLE OR ATTACHED PRODUCTION BOW MAKER: No RADIOLOGY DEPARTMENT: Mammography PERIPHERAL IV DATA: Not applicable SIGNED BY: Olga Falcon March 03, 2024 7:51 AM documented in this encounter [facility] 03-03-2024 Note HNO ID: [id number] Author: LAURA QUINTERO Mammo Tech Service: ? Author Type: Or Rn Type: Progress Notes Filed: 03/03/2024 07:51 Note Text: Radiology Service Progress Note PATIENT NAME: Brice Umanzor DATE OF SERVICE: March 03, 2024 TIME: 7:51 AM PATIENT IDENTITY VERIFICATION COMPLETED USING TWO (2) IDENTIFIERS: Name and Date of confirmed by patient verbally. FALL SCREENING: Has the patient had 2 falls in the last year or 1 fall with injury or currently using an Ambulatory Assistive Device (Walker, Cane, Wheelchair, Crutches, etc.)? No PATIENT GENDER DATA: Female. status: : No status: NO. PATIENT RELEVANT IMPLANT DATA REVIEWED: Not Applicable PATIENT PRESENTS WITH AN IMPLANTABLE OR ATTACHED PRODUCTION BOW MAKER: No RADIOLOGY DEPARTMENT: Mammography PERIPHERAL IV DATA: Not applicable SIGNED BY: Laura Quintero [employer] March 03, 2024 7:51 AM [facility] 02-24-2024 Note Patient Outreach (IN [facility]) BRICE UMANZOR ([id number]) 1965 F Date Time Provider Department 02/24/24 CINDY ALEGRE During your visit today, we recorded the following information about you: Allergies As of Date: 02/24/2024 (No Known Allergies) Date Reviewed: 01/21/2024 Reviewed by: Xin Arzate MA - Fully Assessed Visit Diagnosis:Encounter for screening mammogram for breast cancer [Z12.31] Order(s):[facility] SCREENING [[id number]] Order #: [id number] FUTURE Prescriptions as of 02/29/2024 - levothyroxine (LEVOXYL) 150 mcg tablet Take 1 tablet by mouth once daily. Take on empty stomach. For Thyroid. - metoprolol succinate ER (TOPROL XL) 50 mg 24 hr tablet Take 1 tablet by mouth once daily. - omeprazole (PRILOSEC) 40 mg capsule Take one capsule 1-2 times a day - Cholecalciferol, Vitamin D3, 50 mcg (2,000 unit) cap Take 1 capsule by mouth once daily. Problem List As Of Date 02/24/2024 Noted Resolved Psoriasis [L40.9] 08/19/2006 06/02/2013 Unspecified Seborrheic Dermatitis [L21.9] 08/19/2006 04/12/2010 XEROSIS [L73.9] 08/19/2006 04/12/2010 History of thyroid cancer [Z85.850] 12/10/2006 GERD (gastroesophageal reflux disease) [K21.9] 07/20/2007 Unilateral complete paralysis of vocal cord [J3*09/14/2007 Gastrointestinal Malfunction Arising from Menta*04/30/2009 04/12/2010 Marfan's syndrome [Q87.40] 06/13/2011 Hypocalcemia [E83.51] 04/01/2012 Postsurgical hypothyroidism [E89.0] 10/02/2006 Vitamin D deficiency [E55.9] 06/02/2013 Hypertension [I10] 06/02/2013 Chronic bilateral low back pain without sciatic*07/05/2021 Encounter Status:Closed by DAY FINLEYUSER on 02/29/24 [facility] 09-24-2023 Miscellaneous Notes The following approved medication requests have been transmitted electronically. Requested Prescriptions Pending Prescriptions Disp Refills levothyroxine (LEVOXYL) 150 mcg tablet 90 tablet 3 Sig: Take 1 tablet by mouth once daily. Take on empty stomach. For Thyroid. Grant Savage APRN.CUSTOMER ASSISTANCE REPRESENTATIVE Last refill 04/01/23 Qty: 30 with 5 refills [facility] 07/23/23 NOV 01/21/24 Park Hebert LPN Pharmacy verified in [facility] Patient has been identified by name and date of : Yes Patient aware RX will be sent to pharmacy. No need to notify patient. Patient phones for refill(s): Requested Prescriptions Pending Prescriptions Disp Refills levothyroxine (LEVOXYL) 150 mcg tablet 90 tablet 3 Sig: Take 1 tablet by mouth once daily. Take on empty stomach. For Thyroid. Date of last office visit : 07/23/2023 Date of next office visit : 01/21/2024 Last 2 Encounter Wt Readings: Date: Wt: 07/23/2023 73.4 kg (161 lb 12.8 oz) 03/16/2023 72.8 kg (160 lb 9.6 oz) Not applicable Please advise. Sadia Burden Pss documented in this encounter [facility] 08-18-2023 Miscellaneous Notes Patient calls and notified of results and providers instructions. Patient verbalizes understanding. Carito Krishnamurthy RN Message left for pt to call back for results. Deyanira Salinas MA Can you please call the patient and let her know that I reviewed her thyroid labs. Thyroid labs are still normal. She can continue on levothyroxine 150 mcg daily. Please let me know if she has any questions. Thank you. Krystin Garcia APRN.JUAN documented in this encounter [facility] 07-18-2023 Miscellaneous Notes Pt returned call. Given message below from Grant Savage. Unable to reach patient. Left VM to return call to office. Please read below and advise. Chula Ziegler MA Patient can just wait until the labs are scheduled. Grant Savage APRN.CNP Pt has appt with Dr. Alegre on 07/23. Her thyroid labs aren't technically due until July. Pt asking if provider wants her to get her thyroid labs completed prior to 07/23 appt or wait until next month? Please advise. Thank you. documented in this encounter [facility] 07-13-2023 Miscellaneous Notes The following approved medication requests have been transmitted electronically. Requested Prescriptions Signed Prescriptions Disp Refills Cholecalciferol, Vitamin D3, 50 mcg (2,000 unit) cap 90 capsule 3 Sig: Take 1 capsule by mouth once daily. Authorizing Provider: CINDY ALEGRE MA OK to refill as ordered Cindy Alegre MD Patient has been identified by name and date of : Yes, Provider Codey Date 07-11-23 Time 9:13 am Patient phones for refill(s): Requested Prescriptions Pending Prescriptions Disp Refills Cholecalciferol, Vitamin D3, 50 mcg (2,000 unit) cap 90 capsule 3 Sig: Take 1 capsule by mouth once daily. Date of last office visit with pcp: 01-23-23. Next appt: 07-23-23 Last 2 Encounter Wt Readings: Date: Wt: 03/16/2023 72.8 kg (160 lb 9.6 oz) 01/23/2023 73.4 kg (161 lb 12.8 oz) Previous labs/tests for medication: Blood Pressure: BUN (mg/dL) Date Value 01/15/2023 15 11/16/2020 12 Sodium (mmol/L) Date Value 01/15/2023 139 11/16/2020 140 Last 1 Encounter BP Readings: Date: BP: 03/16/2023 120/70 Liver Function: ALT (U/L) Date Value 06/14/2013 15 AST (U/L) Date Value 06/14/2013 14 Please advise. Thank you. Delmy Swann RN documented in this encounter [facility] 04-02-2023 Procedure note [facility] 04-02-2023 Discharge summary Note Date/Time April 02, 2023 11:50 am [facility] Medical Records Department [address] [place] [address] Instructions for Home/Discharge Instructions 04/02/23 1150 MR#: [id number] Acct: [id number] Name: BRICE UMANZOR Rep #:[id number] : 1965 57 From: Carlos Vizcaino MD PCP: Dr. Cindy Alegre MD Status:[facility] Discharge Instructions Procedure General Surgery Diet Discharge Diet: Light diet - advance as tolerated (if you have questions about your diet instructions, please talk to you doctor.) Activity Discharge Activity: May Not Drive (for 3-5 days or while taking narcotic pain medicine.) May shower in (days): 1 Lifting Restrictions: 10 pounds Dressing / Incision Call your doctor if your incision/area has: Continuous Slow Oozing, Sudden Increased Bleeding, Increased Pain/ Swelling, Increased Redness and Foul Smelling Discharge Call your doctor if you observe: Fever of 101 or Higher Suture Line Care: Avoid Pulling/Pushing and Avoid Pinching/Bending Additional Dressing/Incision Instructions:: Change or remove dressing in 4 days. Leave steri-strips in place for 1 week. Follow Up Care Please Follow Up With: Carlos Vizcaino MD When: Call [phone] to make an appointment to be seen in about 10 days. Test Results: Test results from this visit will be discussed in further detail at your follow-up appointment, if applicable. Discharge Plan Admission Attending Provider: Carlos Vizcaino Primary Care Provider: Cindy Alegre Discharge Orders/Prescriptions Prescriptions: No Action levothyroxine 112 mcg tablet 125 mcg PO DAILY Label Comments: Take 1 tablet by mouth once daily. Take on empty stomach. For thyroid. metoprolol succinate 50 mg tablet extended release 24 hr 1 ea PO DAILY Label Comments: Take 1 tablet by mouth once daily. omeprazole 40 mg capsule,delayed release(DR/EC) 1 ea PO DAILY Label Comments: Take 1 capsule by mouth once daily. cholecalciferol (vitamin D3) 50 mcg (2,000 unit) capsule 50 mcg PO DAILY Referrals / Follow Up: Cindy Alegre MD [Primary Care Provider] - Disposition Disposition (needs filled in before D/C Order can be placed): Home, Self Care 04/02/23 1558<Electronically signed by Carlos Vizcaino MD>Carlos Vizcaino MD CC: Dr. Cindy Alegre MD ~ Signed [facility] Work Phone: 1(869) 182-680306-08-2023 History and physical note Author Dr. Vizcaino [facility] April 02, 2023 11:50am Note Date/Time April 02, 2023 11:50 am [facility] Medical Records Department [address] [place] [id number] History & Physical Exam 04/02/23 1149 MR#: [id number] Acct: [id number] Name: BRICE UMANZOR Rep #:[id number] : 1965 57 From: Carlos Vizcaino MD PCP: Dr. Cindy Alegre MD Status:[facility] Location: [place] [address] History and Physical Date of Admission: 04/02/23 Visit Reasons:?Hernia Chief Complaint: Hernia consult Tub Attendant Required: No Is patient in pain?: Yes Allergies No Known Allergies Allergy (Unverified 02/26/23 07:52) Medications biotin 10,000 mcg capsule mcg PO 02/28/22 [History Confirmed 02/26/23] calcium phosphate 250 mg-vitamin D3 2.5 mcg (100 unit) chewable tablet (Yogurt Plus Calcium Gummies) tab PO 02/28/22 [History Confirmed 02/26/23] cholecalciferol (vitamin D3) 50 mcg (2,000 unit) capsule 50 mcg PO DAILY 02/28/22 [History Confirmed 02/26/23] levothyroxine 112 mcg tablet ea PO 02/28/22 [History Confirmed 02/26/23] metoprolol succinate 50 mg tablet,extended release 24 hr ea PO 02/28/22 [History Confirmed 02/26/23] omeprazole 40 mg capsule,delayed release ea PO 02/28/22 [History Confirmed 02/26/23] PFSH Medical History? Back problem Calcium deficiency delivery delivered Frequent headaches GERD (gastroesophageal reflux disease) Goiter High blood pressure Kidney stone Marfan's syndrome Paralysis of right vocal cord Postoperative primary hypothyroidism Thyroid cancer Thyroid disease Vision problem Vitamin deficiency Surgical History? H/O eye surgery H/O thyroidectomy Family History? Other Hypertension Marfan's syndrome Myocardial infarction Seizures Social History? Smoking Status:? Former smoker alcohol intake:? current alcohol intake frequency: holidays/special occasions only substance use type:? does not use what type of physical activity do you participate in:? other HPI HPI HPI: 57-year-old female who is being referred by the [employer] for surgical consultation regarding a suspected left inguinal hernia.? The patient is being referred by Renae Martin and Dr. Mac Pino.? Written compromisesurgical consult recommendations will be returned to them.? States that she had this injury at work couple weeks ago.? She has been on light duty.? She has beenworking for the [employer] for over 20 years.? 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 It is intermittently uncomfortable with certain lifting and and bending.? It is able to be reduced.? The only previous abdominal surgery she has had was a previous remote . ROS General General: No weight change, appetite, fatigue, colon cancer, breast cancer or weakness HEENT HEENT: Yes eye surgery; No difficulty swallowing, eye injury, swollen glands or hoarseness Endo Endocrine: Yes thyroid disease and thyroid cancer; No diabetes mellitus, Hair loss, heat intolerance or cold intolerance Skin Skin: No rash or changing moles Breast Breast: No left breast lump, right breast lump, nipple discharge, breast pain, abnormal mammogram, abnormal US or breast enlargement Musc Musculoskeletal: Yes back problems; No arthritis, rheumatoid arthritis, gout or joint pain Cardio Cardiovascular: Yes high blood pressure; No murmur, pacemaker, heart disease, atrial fibrillation, heart attack, heart stent, palpitations, shortness of breat with exertion or chest pain Psych Psychiatric: No depression, anxiety or hearing voices Resp Respiratory: No shortness of breath, No sleep apnea, No cough, No COPD, No asthma, No emphysema and No wheezing Gastro Gastrointestinal: Yes abdominal pain, No nausea or vomiting, No diarrhea, No constipation, No blood in stool, Yes acid reflux, No hemorrhoids, No ulcers, No gallbladder problem and No black,tarry stools Kody Hematologic: No blood thinners, No blood disorders, No bleeding, No anemia and No blood clots Neuro Neurologic: No system reviewed and no additional complaints, except as documented, No as per HPI, No abnormal gait, No abnormal hearing, No abnormal movements, No abnormal speech, No behavioral changes, No burning sensations, No confusion, No convulsions, No disequilibrium, No dizziness, No localized weakness, No frequent falls, No headache(s), No lack of coordination, No loss ofvision, No memory loss, No numbness, No other visual disturbances, No radicular pain, No restless legs, No sensory deficit, No syncope, No tingling, No tremor(s), No weakness and No other Exam Const General: cooperative, healthy appearing and no acute distress Orientation: alert and awake [facility] Head: normal to inspection Eyes General: appearance normal, both eyes and all related structures Neck Neck: normal visual inspection Resp Effort & Inspection: normal respiratory effort Auscultation: clear to auscultation bilaterally Cardio Rate: regular rate Rhythm: regular rhythm GI Other: Soft, nontender, extraordinary well-healed Pfannenstiel incision Other: Right groin solid intact, obvious inguinal hernia on the left notable particularly when the patient is upright and standing.? Reducible when supine Skin General: no rashes or lesions noted Neuro General: patient alert, patient awake and patient oriented x3 Extrem General: normal to inspection and no calf tenderness Psych Appearance: grossly normal Assessment and Plan Assessment and Plan (1) Inguinal hernia of left side without obstruction or gangrene: ?Status:?Acute ?Plan: Very pleasant 57-year-old female with a symptomatic indirect left inguinal hernia.? It is still reducible.? She does live an active lifestyle and has vigorous work requirements.? I propose for her a laparoscopic left inguinal herniorrhaphy with mesh and I discussed technique, benefit, risk and alternatives.? I believe that this eventuate's in the most comfortable hernia repair and the quickest return to work possibility.? We did discuss potential risks of surgery including infection and bleeding and mesh neuralgia and recurrence.? She has had an opportunity to ask and have questions answered.? I do believe that she would be a good candidate for this repair and anticipate possibly 3 weeks off of work within returned to work light duty for 3 weeks.? That would be pending her personal progress. I appreciate the opportunity of assisting with her surgical care/consultation Copy:Renae Martin and Dr. Mac Vizcaino M.D., F.A.C.S I have examined the patient and the H&P has been reviewed. There are no clinicalchanges since date of exam. On laboratory the patient has been noted to have an elevated TSH. Dr. Alegre's office was contacted and we were instructed per nurse practitioner to proceed with surgery and they would provide additional adjustments as an outpatient. Carlos Vizcaino M.D., F.A.C.S. 04/02/23 1150 <Electronically signed by Carlos Vizcaino MD> Cosigner Signature (if applicable): CC: Dr. Cindy Alegre MD; Dr. Carlos Vizcaino MD~ Signed [facility] Work Phone: 1(620) 977-273306-05-2023 Miscellaneous Notes* Telephone Encounter - Taylor Gomes LPN - 03/30/2023 4:39 PM EDT [facility] Pre Admission Testing called and requested last ECHO done on pt. Identified pt by name and date of . Pt having surgery. Faxed to [phone]. Done. Taylor Gomes LPN [facility] History of Present illness Narrative* Cindy Alegre MD - 01/23/2023 4:40 PM EDT Chief Complaint Patient presents with: 6 Month Exam HPI Brice Umanzor is a 57 year old female who presents here today for 6 month follow up. Has been busy at work, states this is their busiest time. 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 They are working over time, voluntary at this time. Denies any bowel, Gi, or urinary issues. GERD: Sx controlled on Prilosec 40 mg daily. HTN: Taking Toprol xl 50 mg once daily. Denies any chest pains, dizziness, or SOB. Has not been checking BP at home. Thyroid: Taking Levoxyl 112 mcg daily. No missed dosages, is consistent on how and when she takes. Pain: lower back pain that started yesterday, denies any injury or any activity that would flare upthe pain. She has had issues in the past with back pain. She rated pain 5/10, dull ache. Denies anypain into the legs. She was able to work today. She has not used any heat or ice. She has been taking Ibuprofen. Nothing seems to make the pain any worse or any better. Past medical history, appointments, medications, allergies reviewed. 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 Thyroid cancer PMH - PAST MEDICAL HISTORY OF Cervical strain Unilateral partial paralysis of vocal cords or larynx Urinary calculus, unspecified Renal stones x two occasions Previous Surgical History PAST SURGICAL HISTORY Procedure Laterality Date DELIVERY ONLY 1984 , low cervical COLONOSCOPY FLX DX W/COLLJ SPEC WHEN PFRMD 01/19/2017 Colonoscopy EGD TRANSORAL BIOPSY SINGLE/MULTIPLE 04/30/09 PAST SURGICAL HISTORY OF 1972 dislocated lens or both eyes PAST SURGICAL HISTORY OF 2 injections into the vocal cords THYROIDECTOMY TOTAL/COMPLETE 09/30 Family History FAMILY HISTORY Problem Relation Age of Onset Heart Mother marfans syndrome Hypertension Mother other (Marfan's syndrome) Mother Heart Father Kidney Disease Father other (Marfan's) Sister Colon Cancer Maternal Grandmother 70 other (Marfan's syndrome) Maternal Grandmother other (Marfan's syndrome) Brother other (Marfan's syndrome) Maternal Uncle Patient Allergies ALLERGIES No Known Allergies Current Medications Current Outpatient Medications on File Prior to Visit Medication Sig metoprolol succinate ER (TOPROL XL) 50 mg 24 hr tablet Take 1 tablet by mouth once daily. levothyroxine (LEVOXYL) 112 mcg tablet Take 1 tablet by mouth once daily. Take on empty stomach. For thyroid. omeprazole (PRILOSEC) 40 mg capsule Take 1 capsule by mouth once daily. Cholecalciferol, Vitamin D3, 50 mcg (2,000 unit) cap Take 1 capsule by mouth once daily. No current facility-administered medications on file prior to visit. Social History Social History Tobacco Use Smoking status: Former Years: 1.00 Types: Cigarettes Quit date: 03/26/1984 Years since quittin.8 Smokeless tobacco: Never Tobacco comments: 1-2 cigarrette daily in past last cigarette in high school Vaping Use Vaping Use: Never used Substance Use Topics Alcohol use: Yes Comment: Occasionally Drug use: No EXAM: BP 120/78 Pulse 74 Resp 16 Wt 73.4 kg (161 lb 12.8 oz) LMP 08/27/2019 (LMP Unknown) BMI 25.72 kg/m General Appearance: Well appearing, alert, in no acute distress, well-hydrated, well nourished.. Back: middle lower; pain with bending back and forward, good ROM side to side, tenderness on palpation to mid lower back. Lungs: Lungs clear to auscultation. No wheezing, rhonchi, rales.. Heart: RRR without murmur, gallop, or rubs. No ectopy. Health Maintenance List HEPATITIS B(1 of 3 - 3-dose series) Never done HEPATITIS C SCREENING Never done HIV SCREENING Never done BP CONTROLLED (<130/80) Never done SHINGRIX VACCINE(1 of 2) Never done PAP TESTING due on 04/13/2022 HPV TESTING due on 04/13/2022 COVID-19 VACCINE(4 - Booster for Pfizer series) due on 05/02/2022 INFLUENZA(1) due on 06/26/2022 DEPRESSION ASSESSMENT Never done ANNUAL PCP TEAM CHRONIC DISEASE VISIT due on 07/25/2023 MAMMOGRAM due on 10/06/2023 DIABETES SCREEN due on 07/22/2025 LIPID SCREEN due on 04/08/2026 COLORECTAL CANCER SCREENING due on 01/19/2027 DTAP,TDAP,TD(3 - Td or Tdap) due on 12/03/2027 Data reviewed Appointment on 01/15/2023 Component Date Value TSH 01/15/2023 13.300 (A) Glucose 01/15/2023 81 BUN 01/15/2023 15 Creatinine 01/15/2023 0.87 Sodium 01/15/2023 139 Potassium 01/15/2023 4.5 Chloride 01/15/2023 102 CO2 01/15/2023 28 Anion Gap 01/15/2023 9 Calcium, Total 01/15/2023 9.2 Estimated Glomerular Mert* 01/15/2023 78 Thyroglobulin Ab, Serum 01/15/2023 <0.9 ASSESSMENT/PLAN: 1. Primary hypertension - ICD9: 401.9, ICD10: I10 (primary diagnosis) - good control - Continue current medication(s) - Recommended regular aerobic exercise. - Recommend home blood pressure monitoring, to bring results in on next visit - Goal of BP <130/80 2. Postsurgical hypothyroidism - ICD9: 244.0, ICD10: E89.0 - Instructed patient on importance of taking on an empty stomach either first thing in the morning or at bedtime. - Increase Synthroid dose to 0.125 mg - Copied from Dr Martinez 2013 note: IMPRESSION: History of thyroid cancer - clinically SUMIT. Check thyroglobulin level. If undetectable,no further workup. Aim for TSH around 0.4 or just below. 3. Gastroesophageal reflux disease, unspecified whether esophagitis present - ICD9: 530.81, ICD10: K21.9 - controlled Continue current medications. 4. Chronic bilateral low back pain without sciatica - ICD9: 724.2, 338.29, ICD10: M54.50, G89.29 Continue with Ibuprofen, may use heat and/or ice Call if not improving Follow up in 6 months with thyroid labs prior. I agree with the Chief Complaint, ROS, and Past Histories independently gathered by the clinical desktop support engineer and the remaining scribed note accurately describes my personal service to the patient. Medical Decision Making: Problems: Low: Acute, uncomplicated illness or injury Moderate: 2+ stable chronic illnesses Data: Unique test result(s) reviewed: 2 Unique test(s) ordered: 1 Risk: Moderate: Drug management Medical Decision Making Level: 4 - Moderate Cindy Alegre MD The documentation for this note was completed by Deyanira Salinas Ma acting as scribe for Cindy Alegre MD. January 23, 2023 4:54 PM. Deyanira Salinas Ma documented in this encounterOhio[facility]12-12-2022 Miscellaneous Notes* Letter - Mammography Coordinator - 10/06/2022 10:38 AM EST October 07, 2022 PID: [id number] Brice Umanzor [address] [place] [address] Dear Ms. Umanzor, We are pleased to inform you that the results of your recent breast imaging exam on 10/06/2022 are normal. Your mammogram demonstrates that you have dense breast tissue, which could hide abnormalities. Dense breast tissue, in and of itself, is a relatively common condition. Therefore, this information is not provided to cause undue concern; rather, it is to ra ise your awareness and promote discussion with your health care provider regarding the presence of dense breast tissue in addition to other risk factors. Early detection of cancer is very important. We also understand recommendations regarding breast cancer screening are controversial. Please discuss with your primary care provider which strategy is best for you and whether a mammogram is right for you. Your imaging studies and report will be kept on file at [facility] as part of your permanent medical record and are available for your continuing care. Thank you for allowing us to help in meeting your health care needs. Sincerely, Dr. Romero Interpreting Radiologist [facility] (Normal over 40) documented in this encounterOhiohealth [facility] Center12-12-2022 History of Present illness Narrative* Lali Sandy, Mammo Tech - 10/06/2022 9:30 AM EST Radiology Service Progress Note PATIENT NAME: Brice Umanzor DATE OF SERVICE: October 06, 2022 TIME: 9:45 AM PATIENT IDENTITY VERIFICATION COMPLETED USING TWO (2) IDENTIFIERS: Name and Date of confirmedby patient verbally. FALL SCREENING: Has the patient had 2 falls in the last year or 1 fall with injury or currently using an Ambulatory Assistive Device (Walker, Cane, Wheelchair, Crutches, etc.)? No PATIENT GENDER DATA: Female. status: : No status: NO. PATIENT RELEVANT IMPLANT DATA REVIEWED: Not Applicable RADIOLOGY DEPARTMENT: Mammography PERIPHERAL IV DATA: Not applicable SIGNED BY: Angel [employer] Lyudmila October 06, 2022 9:45 AM documented in this encounterOhio[facility] Center09-30-2022 History of Present illness Narrative* Cindy Alegre MD - 07/25/2022 4:40 PM EDT Chief Complaint Follow up HPI Brice Umanzor is a 56 year old female who presents here today for 6 month follow up. No bowel, Gi, or urinary issues. GERD: Sx controlled with Prilosec 40 mg daily. Thyroid: Taking Levoxyl 112 mcg daily. Hx of thyroidectomy and thyroid cancer. HTN: Taking Metoprolol 50 mg daily. No chest pains, dizziness, or SOB. Does not check BP at home. Had a fall at work; tripped over something on the floor; says her head felt heavy as she was falling; felt like a weight in her head. Right foot - some numbness in toes when she gets up in the AM. Off and on. Past medical history, appointments, medications, allergies reviewed. 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 Thyroid cancer PMH - PAST MEDICAL HISTORY OF Cervical strain Unilateral partial paralysis of vocal cords or larynx Urinary calculus, unspecified Renal stones x two occasions Previous Surgical History PAST SURGICAL HISTORY Procedure Laterality Date DELIVERY ONLY 1984 , low cervical COLONOSCOPY FLX DX W/COLLJ SPEC WHEN PFRMD 01/19/2017 Colonoscopy EGD TRANSORAL BIOPSY SINGLE/MULTIPLE 04/30/09 PAST SURGICAL HISTORY OF 1972 dislocated lens or both eyes PAST SURGICAL HISTORY OF 2 injections into the vocal cords THYROIDECTOMY TOTAL/COMPLETE 09/30 Family History FAMILY HISTORY Problem Relation Age of Onset Heart Mother marfans syndrome Hypertension Mother other (Marfan's syndrome) Mother Heart Father Kidney Disease Father other (Marfan's) Sister Colon Cancer Maternal Grandmother 70 other (Marfan's syndrome) Maternal Grandmother other (Marfan's syndrome) Brother other (Marfan's syndrome) Maternal Uncle Patient Allergies ALLERGIES No Known Allergies Current Medications Current Outpatient Medications on File Prior to Visit Medication Sig metoprolol succinate ER (TOPROL XL) 50 mg 24 hr tablet Take 1 tablet by mouth once daily. levothyroxine (LEVOXYL) 112 mcg tablet Take 1 tablet by mouth once daily. Take on empty stomach. For thyroid. omeprazole (PRILOSEC) 40 mg capsule Take 1 capsule by mouth once daily. Cholecalciferol, Vitamin D3, 50 mcg (2,000 unit) cap Take 1 capsule by mouth once daily. No current facility-administered medications on file prior to visit. Social History Social History Tobacco Use Smoking status: Former Years: 1.00 Types: Cigarettes Quit date: 03/26/1984 Years since quittin.3 Smokeless tobacco: Never Tobacco comments: 1-2 cigarrette daily in past last cigarette in high school Vaping Use Vaping Use: Never used Substance Use Topics Alcohol use: Yes Comment: Occasionally Drug use: No EXAM: LMP 08/27/2019 (LMP Unknown) General Appearance: Well appearing, alert, in no acute distress, well-hydrated, well nourished.. Lungs: Lungs clear to auscultation. No wheezing, rhonchi, rales.. Heart: RRR without murmur, gallop, or rubs. No ectopy. Right foot: normal. Health Maintenance List HEPATITIS B(1 of 3 - 3-dose series) Never done HEPATITIS C SCREENING Never done HIV SCREENING Never done SHINGRIX VACCINE(1 of 2) Never done COVID-19 VACCINE(3 - Booster for Pfizer series) due on 05/31/2021 PAP TESTING due on 04/13/2022 HPV TESTING due on 04/13/2022 DEPRESSION SCREENING due on 05/29/2022 INFLUENZA(1) due on 06/26/2022 MAMMOGRAM due on 09/03/2022 ANNUAL PCP TEAM CHRONIC DISEASE VISIT due on 01/06/2023 BP CONTROLLED (<130/80) due on 01/06/2023 DIABETES SCREEN due on 04/08/2024 LIPID SCREEN due on 04/08/2026 COLORECTAL CANCER SCREENING due on 01/19/2027 DTAP,TDAP,TD(3 - Td or Tdap) due on 12/03/2027 Data reviewed . Appointment on 07/22/2022 Component Date Value TSH 07/22/2022 0.750 Free T4 07/22/2022 1.5 Glucose 07/22/2022 89 BUN 07/22/2022 13 Creatinine 07/22/2022 0.80 Sodium 07/22/2022 140 Potassium 07/22/2022 4.1 Chloride 07/22/2022 101 CO2 07/22/2022 30 Anion Gap 07/22/2022 9 Calcium, Total 07/22/2022 8.5 Estimated Glomerular Mert* 07/22/2022 87 ASSESSMENT/PLAN: 1. Primary hypertension - ICD9: 401.9, ICD10: I10 (primary diagnosis) - good control - Continue current medication(s) - Recommended regular aerobic exercise. - Recommend home blood pressure monitoring, to bring results in on next visit - Goal of BP <140/90 - BASIC METABOLIC PNL 2. Gastroesophageal reflux disease, unspecified whether esophagitis present - ICD9: 530.81, ICD10: K21.9 Continue current medications. - OMEPRAZOLE 40 MG CAPSULE,DELAYED RELEASE 3. Marfan's syndrome - ICD9: 759.82, ICD10: Q87.40 4. Postsurgical hypothyroidism - ICD9: 244.0, ICD10: E89.0 - LEVOTHYROXINE 112 MCG TABLET - TSH BLD 5. Essential hypertension - ICD9: 401.9, ICD10: I10 - METOPROLOL SUCCINATE ER 50 MG TABLET,EXTENDED RELEASE 24 HR Follow up in 6 months with labs prior Medical Decision Making: Problems: Moderate: 2+ stable chronic illnesses Data: Unique test result(s) reviewed: 2 Unique test(s) ordered: 2 Risk: Moderate: Drug management Medical Decision Making Level: 4 - Moderate Cindy Alegre MD documented in this encounterOhio[facility]07-06-2009 History of Past illness Narrative* Problem Noted Date Resolved Date Gastrointestinal malfunction arising from mental factors 04/30/2009 04/12/2010 Psoriasis 08/19/2006 06/02/2013 Seborrheic dermatitis, unspecified 08/19/2006 04/12/2010 XEROSIS 08/19/2006 04/12/2010 documented as of this encounter (statuses as of 07/25/2022) [facility] of [facility] illness Narrative* Problem Noted Date Resolved Date Gastrointestinal malfunction arising from mental factors 04/30/2009 04/12/2010 Psoriasis 08/19/2006 06/02/2013 Seborrheic dermatitis, unspecified 08/19/2006 04/12/2010 XEROSIS 08/19/2006 04/12/2010 documented as of this encounter (statuses as of 10/09/2022) [facility] of [facility] illness Narrative* Problem Noted Date Resolved Date Gastrointestinal malfunction arising from mental factors 04/30/2009 04/12/2010 Psoriasis 08/19/2006 06/02/2013 Seborrheic dermatitis, unspecified 08/19/2006 04/12/2010 XEROSIS 08/19/2006 04/12/2010 documented as of this encounter (statuses as of 01/24/2023) [facility] Narrative* Problem Noted Date Resolved Date Gastrointestinal malfunction arising from mental factors 04/30/2009 04/12/2010 Psoriasis 08/19/2006 06/02/2013 Seborrheic dermatitis, unspecified 08/19/2006 04/12/2010 XEROSIS 08/19/2006 04/12/2010 documented as of this encounter (statuses as of 03/31/2023) [facility] of [facility] illness Narrative* Problem Noted Date Diagnosed Date Resolved Date Gastrointestinal malfunction arising from mental factors 04/30/2009 04/12/2010 Psoriasis 08/19/2006 06/02/2013 Seborrheic dermatitis, unspecified 08/19/2006 04/12/2010 XEROSIS 08/19/2006 04/12/2010 documented as of this encounter (statuses as of 07/13/2023) [facility] Narrative* Problem Noted Date Diagnosed Date Resolved Date Gastrointestinal malfunction arising from mental factors 04/30/2009 04/12/2010 Psoriasis 08/19/2006 06/02/2013 Seborrheic dermatitis, unspecified 08/19/2006 04/12/2010 XEROSIS 08/19/2006 04/12/2010 documented as of this encounter (statuses as of 07/18/2023) [facility] Narrative* Problem Noted Date Diagnosed Date Resolved Date Gastrointestinal malfunction arising from mental factors 04/30/2009 04/12/2010 Psoriasis 08/19/2006 06/02/2013 Seborrheic dermatitis, unspecified 08/19/2006 04/12/2010 XEROSIS 08/19/2006 04/12/2010 documented as of this encounter (statuses as of 08/19/2023) [facility] Narrative* Problem Noted Date Diagnosed Date Resolved Date Gastrointestinal malfunction arising from mental factors 04/30/2009 04/12/2010 Psoriasis 08/19/2006 06/02/2013 Seborrheic dermatitis, unspecified 08/19/2006 04/12/2010 XEROSIS 08/19/2006 04/12/2010 documented as of this encounter (statuses as of 08/30/2023) [facility] of [facility] illness Narrative* Problem Noted Date Diagnosed Date Resolved Date Gastrointestinal malfunction arising from mental factors 04/30/2009 04/12/2010 Psoriasis 08/19/2006 06/02/2013 Seborrheic dermatitis, unspecified 08/19/2006 04/12/2010 XEROSIS 08/19/2006 04/12/2010 documented as of this encounter (statuses as of 09/24/2023) [facility] note* Diagnosis Primary hypertension- Primary Unspecified essential hypertension Gastroesophageal reflux disease, unspecified whether esophagitis present Marfan's syndrome Postsurgical hypothyroidism Essential hypertension Unspecified essential hypertension History of thyroid cancer Personal history of malignant neoplasm of thyroid documented in this encounter [facility] note* Diagnosis Primary hypertension- Primary Unspecified essential hypertension Postsurgical hypothyroidism Gastroesophageal reflux disease, unspecified whether esophagitis present Chronic bilateral low back pain without sciatica documented in this encounter [facility] note* Diagnosis Onset Date Resolution Status Inguinal hernia of left side without obstruction or gangrene acute [facility] Work Phone: Evaluation note* Diagnosis Onset Date Resolution Status Inguinal hernia of left side without obstruction or gangrene acute Inguinal hernia of left side without obstruction or gangrene acute [facility] Work Phone: Evaluation note* Diagnosis Vitamin D deficiency Unspecified vitamin D deficiency documented in this encounter [facility] note* Diagnosis Encounter for screening mammogram for breast cancer documented in this encounter [facility] note* Diagnosis Postsurgical hypothyroidism documented in this encounter [facility] note* Diagnosis Encounter for screening mammogram for breast cancer [facility] Diagnosis Encounter for screening mammogram for breast cancer [facility] encounter [facility] Diagnosis Encounter for gynecological examination (general) (routine) without abnormal findings- Primary Encounter for screening mammogram for breast cancer [facility]* Diagnosis Primary hypertension- Primary Unspecified essential hypertension Postsurgical hypothyroidism Gastroesophageal reflux disease, unspecified whether esophagitis present [facility] Diagnosis Primary hypertension- Primary Unspecified essential hypertension Screening for depression Encounter for screening examination for other mental health and behavioral disorders Gastroesophageal reflux disease, unspecified whether esophagitis present Postsurgical hypothyroidism Essential hypertension Unspecified essential hypertension Vitamin D deficiency Unspecified vitamin D deficiency [facility] Diagnosis Postsurgical hypothyroidism [facility]* Diagnosis Postsurgical hypothyroidism documented in this encounter [facility] note* Diagnosis Essential hypertension- Primary Unspecified essential hypertension Gastroesophageal reflux disease, unspecified whether esophagitis present Postsurgical hypothyroidism Marfan's syndrome (HCC) Marfan's syndrome CHARLES (dyspnea on exertion) Other dyspnea and respiratory abnormality Wheezing CHARLES (dyspnea on exertion) Other dyspnea and respiratory abnormality [facility] Diagnosis CHARLES (dyspnea on exertion) Other dyspnea and respiratory abnormality [facility] encounter [facility]* Diagnosis CHARLES (dyspnea on exertion)- Primary Other dyspnea and respiratory abnormality documented in this encounter [facility] [place] for referral (narrative)* Diagnostic Procedure Only (Routine) - Closed Specialty Diagnoses / Procedures Referred By Edgardo pyle Referred To Contact [facility] Diagnoses Encounter for screening mammogram for breast cancer Procedures EH SCREENING SCREENING MAMMOGRAPHY BI 2-VIEW BREAST INC CAD Alondra Walter MD [address] [place] [address] [facility] [address] [place] [phone] Referral ID Status Reason Start Date Expiration Date V isits Requested Visits Authorized [id number] Closed Auto-Generate d Referral 10/14/2021 11/13/2022 1 1 [facility] for referral (narrative)* Diagnostic Procedure Only (Routine) - Authorized Specialty Diagnoses / Procedures Referred By Edgardo pyle Referred To Contact [facility] Diagnoses Encounter for screening mammogram for breast cancer Procedures EH SCREENING SCREENING MAMMOGRAPHY BI 2-VIEW BREAST INC Cindy Saleh MD [address] [place] [address] [facility] [address] [place] [address] Referral ID Status Reason Start Date Expiration Date Visits Requested Visits Authorized [id number] Authorized Auto-Generat ed Referral 02/24/2024 03/25/2025 1 1 T [facility] for referral (narrative)* Diagnostic Procedure Only (Routine) - Closed Specialty Diagnoses / Procedures Referred By Edgardo pyle Referred To Contact [facility] Diagnoses Encounter for screening mammogram for breast cancer Procedures EH SCREENING SCREENING MAMMOGRAPHY BI 2-VIEW BREAST INC Cindy Saleh MD [address] [place] [address] [facility] [address] [place] [address] Referral ID Status Reason Start Date Expiration Date V isits Requested Visits Authorized [id number] Closed Auto-Generate d Referral 02/24/2024 03/25/2025 1 1 [facility] for referral (narrative)* Diagnostic Procedure Only (Routine) - Authorized Specialty Diagnoses / Procedures Referred By Edgardo pyle Referred To Contact [facility] Diagnoses Encounter for screening mammogram for breast cancer Procedures EH SCREENING W CAM SCREENING DIGITAL BREAST TOMOSYNTHESIS BI SCREENING MAMMOGRAPHY BI 2-VIEW BREAST INC Alondra Kelly MD [address] [place] [address] [facility] [address] [place] [address] Referral ID Status Reason Start Date Expiration Date Visits Requested Visits Authorized [id number] Authorized Auto-Generat ed Referral 05/27/2024 06/26/2025 1 1 [facility] for visit Narrative* Diagnostic Procedure Only (Routine) - Closed Specialty Diagnoses / Procedures Referred By Contac t Referred To Contact [facility] Diagnoses Encounter for screening mammogram for breast cancer Procedures EH SCREENING SCREENING MAMMOGRAPHY BI 2-VIEW BREAST INC Alondra Kelly MD [address] [place] [address] [facility] [address] [place] [address] Referral ID Status Reason Start Date Expiration Date V isits Requested Visits Authorized [id number] Closed Auto-Generate d Referral 10/14/2021 11/13/2022 1 1 [facility]* Diagnostic Procedure Only (Routine) - Closed Specialty Diagnoses / Procedures Referred By Edgardo pyle Referred To Contact [facility] Diagnoses Encounter for screening mammogram for breast cancer Procedures EH SCREENING SCREENING MAMMOGRAPHY BI 2-VIEW BREAST INC Cindy Saleh MD [address] [place] [address] [facility] [address] [place] [address] Referral ID Status Reason Start Date Expiration Date V isits Requested Visits Authorized [id number] Closed Auto-Generate d Referral 02/24/2024 03/25/2025 1 1 [facility] Chief Complaint and Reason for Visit Chief Complaint Hernia LAP LEFT INGUINAL HERNIA REPAIR LAP LEFT INGUINAL HERNIA REPAIR Reason for Visit Inguinal hernia of l eft side without obstruction or gangrene Chief Complaint Hernia LAP LEFT INGUINAL HERNIA REPAIR LAP LEFT INGUINAL HERNIA REPAIR L INGUINAL HERNIA REPAIR 04/02 Reason for Visit Inguinal hernia of l eft side without obstruction or gangrene Inguinal hernia of left side without obstruction or gangrene Family History No Family History Records Found Relationship Condition Age at Onset Recorded Date/T jenny Not Specified Marfan's syndrome Unknown Myocardial infarction Unknown Seizure Unknown Hypertension Unknown Advance Directives No Advanced Directives Records Found Advance Directive Response Recorded Date/ Time Living Will No March 30, 2023 4 :15pm Power of Bulk System Operator No March 30, 2023 4:15pm Summary Purpose Additional Source Comments Source Comments (unrecognize d section and content) In the event this informatio n is protected by the Federal Confidentiality of Alcohol and Drug Abuse Patient Records regulations: The Federal rules restrict any use of the information to criminally investigate or prosecute any alcohol or drug abuse patient.[facility] CenterIn the event this information is protected by the Federal Confidentiality of Alcohol and Drug Abuse Patient Records regulations: The Federal rules restrict any use of the information to criminally investigate or prosecute any alcohol or drug abuse patient.[facility] CenterIn the event this information is protected by the Federal Confidentiality of Alcohol and Drug Abuse Patient Records regulations: The Federal rules restrict any use of the information to criminally investigate or prosecute any alcohol or drug abuse patient.[facility] CenterIn the event this information is protected by the Federal Confidentiality of Alcohol and Drug Abuse Patient Records regulations: The Federal rules restrict any use of the information to criminally investigate or prosecute any alcohol or drug abuse patient.[facility] CenterIn the event this information is protected by the Federal Confidentiality of Alcohol and Drug Abuse Patient Records regulations: The Federal rules restrict any use of the information to criminally investigate or prosecute any alcohol or drug abuse patient.[facility] CenterIn the event this information is protected by the Federal Confidentiality of Alcohol and Drug Abuse Patient Records regulations: The Federal rules restrict any use of the information to criminally investigate or prosecute any alcohol or drug abuse patient.[facility] CenterIn the event this information is protected by the Federal Confidentiality of Alcohol and Drug Abuse Patient Records regulations: The Federal rules restrict any use of the information to criminally investigate or prosecute any alcohol or drug abuse patient.[facility] CenterIn the event this information is protected by the Federal Confidentiality of Alcohol and Drug Abuse Patient Records regulations: The Federal rules restrict any use of the information to criminally investigate or prosecute any alcohol or drug abuse patient.[facility] CenterIn the event this information is protected by the Federal Confidentiality of Alcohol and Drug Abuse Patient Records regulations: The Federal rules restrict any use of the information to criminally investigate or prosecute any alcohol or drug abuse patient.[facility] CenterIn the event this information is protected by the Federal Confidentiality of Alcohol and Drug Abuse Patient Records regulations: The Federal rules restrict any use of the information to criminally investigate or prosecute any alcohol or drug abuse patient.[facility] CenterIn the event this information is protected by the Federal Confidentiality of Alcohol and Drug Abuse Patient Records regulations: The Federal rules restrict any use of the information to criminally investigate or prosecute any alcohol or drug abuse patient.[facility] CenterIn the event this information is protected by the Federal Confidentiality of Alcohol and Drug Abuse Patient Records regulations: The Federal rules restrict any use of the information to criminally investigate or prosecute any alcohol or drug abuse patient.[facility] CenterIn the event this information is protected by the Federal Confidentiality of Alcohol and Drug Abuse Patient Records regulations: The Federal rules restrict any use of the information to criminally investigate or prosecute any alcohol or drug abuse patient.[facility] CenterIn the event this information is protected by the Federal Confidentiality of Alcohol and Drug Abuse Patient Records regulations: The Federal rules restrict any use of the information to criminally investigate or prosecute any alcohol or drug abuse patient.[facility] CenterIn the event this information is protected by the Federal Confidentiality of Alcohol and Drug Abuse Patient Records regulations: The Federal rules restrict any use of the information to criminally investigate or prosecute any alcohol or drug abuse patient.[facility] CenterIn the event this information is protected by the Federal Confidentiality of Alcohol and Drug Abuse Patient Records regulations: The Federal rules restrict any use of the information to criminally investigate or prosecute any alcohol or drug abuse patient.[facility] CenterIn the event this information is protected by the Federal Confidentiality of Alcohol and Drug Abuse Patient Records regulations: The Federal rules restrict any use of the information to criminally investigate or prosecute any alcohol or drug abuse patient.[facility] CenterIn the event this information is protected by the Federal Confidentiality of Alcohol and Drug Abuse Patient Records regulations: The Federal rules restrict any use of the information to criminally investigate or prosecute any alcohol or drug abuse patient.[facility] CenterIn the event this information is protected by the Federal Confidentiality of Alcohol and Drug Abuse Patient Records regulations: The Federal rules restrict any use of the information to criminally investigate or prosecute any alcohol or drug abuse patient.[facility] CenterIn the event this information is protected by the Federal Confidentiality of Alcohol and Drug Abuse Patient Records regulations: The Federal rules restrict any use of the information to criminally investigate or prosecute any alcohol or drug abuse patient.[facility] CenterIn the event this information is protected by the Federal Confidentiality of Alcohol and Drug Abuse Patient Records regulations: The Federal rules restrict any use of the information to criminally investigate or prosecute any alcohol or drug abuse patient.[facility] Reason for Visit (unrecogniz ed section and content) Reason Comments Recheck 6 month follow up Reason Comments 6 Month Exam Reason Comments Release Of Medical Records Reason Onset Date Comments Refill Request 07/11/2023 Reason Comments Patient Question Reason Comments Results Labs, Thyroid Reason Onset Date Comments Refill Request 09/23/2023 Reason Comments Well Woman Reason Comments Orders Reason Onset Date Comments Refill Request 09/23/2024 Reason Comments Medication Request Reason Comments F/U 6 Month Reason Comments Spirometry Specialty Diagnoses / Procedures Referred By Edgardo t Referred To [facility] Diagnoses CHARLES (dyspnea on exertion) Procedures SPIROMETRY - BASELINE AND POST DILATOR BRNCDILAT RSPSE SPMTRY PRE&POST-BRNCDILAT ADMN Cindy Alegre MD [address] [place] [address] Phone: tel: fax: [facility] [address] [place] [address] Referral ID Status Reason Start Date Expiration Date V isits Requested Visits Authorized [id number] Closed Auto-Generate d Referral 01/31/2025 03/02/2026 1 1 Care Teams (unrecognized sec tion and content) Button Cutting Machine Operator Relationship Specialty Start Date End Date Cindy Alegre MD [address] [place] [address] PCP - General 04/12/10 Button Cutting Machine Operator Relationship Specialty Start Date End Date Cindy Alegre MD [address] [place] [address] PCP - General 04/12/10 Button Cutting Machine Operator Relationship Specialty Start Date End Date Cindy Alegre MD [address] [place] [address] PCP - General 04/12/10 Team Status: Active Member Role Status Dates Dr. Cindy Alegre MD Family Provider Active Dr. Cindy Alegre MD Primary Care Provider Active Team Status: Inactive Member Role Status Dates Dr. Cindy Alegre MD Primary Care Provider, Referr ing Provider Active Dr. Carlos Vizcaino MD Attending Provider Active Team Status: Active Member Role Status Dates Dr. Cindy Alegre MD Primary Care Provider Active Dr. Carlos Vizcaino MD Attending Provid er, Referring Provider, Other Provider Active Team Status: Inactive Member Role Status Dates Dr. Cindy Alegre MD Primary Care Provider Active Dr. Carlos Vizcaino MD Attending Provider, Referring Provider Active Team Status: Inactive Member Role Status Dates Dr. Cindy Alegre MD Primary Care Provider Active Dr. Mk Turner MD Attending Provider, Referring Prov ider Active Button Cutting Machine Operator Relationship Specialty Start Date End Date Cindy Alegre MD [address] [place] [address] PCP - General 04/12/10 Team Status: Active Member Role Status Dates Dr. Cindy Alegre MD Primary Care Provider Active Dr. Mk Turner MD Attending Provider, Referring Prov ider Active Team Status: Inactive Member Role Status Dates Dr. Cindy Alegre MD Primary Care Provider, Referr ing Provider Active Bree HAIRSTON PA-C Attending Provider Active Button Cutting Machine Operator Relationship Specialty Start Date End Date Cindy Alegre MD [address] [place] [address] PCP - General 04/12/10 Button Cutting Machine Operator Relationship Specialty Start Date End Date Cindy Alegre MD [address] [place] [address] PCP - General 04/12/10 Button Cutting Machine Operator Relationship Specialty Start Date End Date Cindy Alegre MD [address] [place] [address] PCP - General 04/12/10 Button Cutting Machine Operator Relationship Specialty Start Date End Date Cindy Alegre MD [address] [place] [address] PCP - General 04/12/10 Button Cutting Machine Operator Relationship Specialty Start Date End Date Cindy Alegre MD [address] [place] [address] PCP - General 04/12/10 Button Cutting Machine Operator Relationship Specialty Start Date End Date Cindy Alegre MD [address] [place] [address] PCP - General 04/12/10 Button Cutting Machine Operator Relationship Specialty Start Date End Date Cindy Alegre MD [address] [place] [address] PCP - General 04/12/10 Button Cutting Machine Operator Relationship Specialty Start Date End Date Cindy Alegre MD [address] [place] [address] PCP - General 04/12/10 Button Cutting Machine Operator Relationship Specialty Start Date End Date Cindy Aelgre MD [address] [place] [address] PCP - General 04/12/10 Button Cutting Machine Operator Relationship Specialty Start Date End Date Cindy Alegre MD [address] [place] [address] PCP - General 04/12/10 Krystin Garcia APRN.CUSTOMER ASSISTANCE REPRESENTATIVE [address] [place] [address] [facility] 10/02/24 Grant Savage APRN.CUSTOMER ASSISTANCE REPRESENTATIVE [address] [place] [address] [facility] 10/11/24 Button Cutting Machine Operator Relationship Specialty Start Date End Date Cindy Alegre MD [address] [place] [address] PCP - General 04/12/10 Krystin Garcia APRN.CUSTOMER ASSISTANCE REPRESENTATIVE [address] [place] [address] [facility] 10/02/24 Grant Savage APRN.CUSTOMER ASSISTANCE REPRESENTATIVE [address] [place] [address] Residential Installer Family [facility] 10/11/24 Button Cutting Machine Operator Relationship Specialty Start Date End Date Cindy Alegre MD [address] [place] [address] PCP - General 04/12/10 Krystin Garcia APRN.CUSTOMER ASSISTANCE REPRESENTATIVE [address] [place] [address] [facility] 10/02/24 Grant Savage APRN.CUSTOMER ASSISTANCE REPRESENTATIVE [address] [place] [address] [facility] 10/11/24 Button Cutting Machine Operator Relationship Specialty Start Date End Date Cindy Alegre MD [address] [place], [place] [id number] PCP - General 04/12/10 Krystin Garcia APRN.CUSTOMER ASSISTANCE REPRESENTATIVE [address] [place] [address] [facility] 10/02/24 Grant Savage APRN.CUSTOMER ASSISTANCE REPRESENTATIVE [address] [place], [place] [id number] [facility] 10/11/24 INFORMATION SOURCE (unrecogn ized section and content) DATE CREATED AUTHOR 02/06/2025 [facility] DATE CREATED AUTHOR AUTHOR'S ORGANIZ ATION 05/11/2025 [facility] FOR RECORDS PERTAINING TO PATIENTS WHO ARE OR HAVE BEEN ENROLLED IN A CHEMICAL DEPENDENCY/SUBSTANCEABUSE PROGRAM, SOME INFORMATION MAY BE OMITTED. This clinical summary was aggregated from multiple sources. Caution should be exercised in using it in the provision of clinical care. This summary normalizes information from multiple sources, and as a consequence, information in this document may materially change the coding, format and clinical context of patient data. In addition, data may be omitted in some cases. CLINICAL DECISIONS SHOULD BE BASED ON THE PRIMARY CLINICAL RECORDS. [employer] provides no warranty or guarantee of the accuracy or completeness of information in this document.
== END | disposition home or self-care (01) ==
PROVIDERS: PCP Family Medicine; Referring Provider Podiatrist; Visit Provider Podiatrist
DX: M21.752 Unequal limb length (acquired), left femur (principal)
CPT/HCPCS: 77073